=== PATIENT | female | born 1940 | race Hispanic/Latino ===

== ENCOUNTER 2019-10-29 13:01 | Inpatient (IN) | payer MEDICARE, OTHER ==
[~2019-10-29] VITALS: Ht 172.7 cm; Wt 97.6 kg
--- NOTE | 2019-10-29 14:31 | NUR ---
Spoke with pts ELIZABETH Bello .
--- NOTE | 2019-10-29 15:30 | Diagnostic Imaging Report ---
EXAMINATION: CHEST SINGLE (PORTABLE) INDICATION: Weakness COMPARISON: None FINDINGS: LINES/TUBES:EKG leads overlie the chest. LUNGS:The lung volumes are low. Bibasilar linear opacities. PLEURA:No pleural effusion or pneumothorax. MEDIASTINUM:The cardiomediastinal silhouette appears normal in size and shape. Atherosclerotic calcifications of the thoracic aorta. BONES/SOFT TISSUES:No acute osseous injury. ABDOMEN:No free air under the diaphragm. IMPRESSION: Low lung volumes with bibasilar linear opacities, most likely subsegmental atelectasis. Signed by: Nubia Bryson MD on 10/29/2019 3:26 PM
[2019-10-29 15:44] LABS: BASOPHILS % 0.3 % (0.0-1.0); EOSINOPHILS # (AUTO) 0.1 (0.0-0.4); EOSINOPHILS % 0.5 % (0.0-6.0); LYMPHOCYTES % 15.3 % (18.0-39.1); MEAN CORPUSCULAR HEMOGLOBIN 25.5 pg (28-32); MONOCYTES # (AUTO) 0.5 (0.2-0.8); MONOCYTES % 3.6 % (4.4-11.3); NEUTROPHILS # (AUTO) 10.3 (2.1-6.9); NEUTROPHILS % 79.8 % (38.7-80.0); PLATELET COUNT 272 x10e3/uL (140-360); RED BLOOD COUNT 3.53 x10e6/uL (3.6-5.1); RED CELL DISTRIBUTION WIDTH 18.6 % (11.7-14.4)
[2019-10-29 15:47] LABS: BILIRUBIN,URINE NEGATIVE (NEGATIVE); CLARITY,URINE CLOUDY (CLEAR); COLOR,URINE AMBER (YELLOW); KETONES,URINE NEGATIVE (NEGATIVE); LEUKOCYTE ESTERASE ,URINE MODERATE (NEGATIVE); NITRITE,URINE NEGATIVE (NEGATIVE); PROTEIN,URINE DIPSTICK TRACE (NEGATIVE); URINE UROBILINOGEN 0.2 mg/dL (0.2 - 1)
[2019-10-29 15:52] LABS: INR 1.61; PROTHROMBIN TIME 20.3 seconds (11.9-14.5)
[2019-10-29 15:57] LABS: PARTIAL THROMBOPLASTIN TIME 41.5 seconds (23.8-35.5)
[2019-10-29 16:01] LABS: BACTERIA,URINE MODERATE /HPF; EPITHELIAL CELLS,URINE FEW /LPF; RBC,URINE 0-5 /HPF (0-5)
[2019-10-29 16:02] LABS: ALBUMIN 1.7 g/dL (3.5-5.0); ALBUMIN/GLOBULIN RATIO 0.5 (0.8-2.0); ANION GAP 10.4 mmol/L (8-16); CALCIUM 7.3 mg/dL (8.4-10.2); CREATININE, SERUM 1.18 mg/dL (0.57-1.11); MAGNESIUM 1.8 MG/DL (1.3-2.1); POTASSIUM 3.4 mmol/L (3.5-5.1)
[2019-10-29 16:02] LABS: YEAST,URINE MODERATE
[2019-10-29 16:09] LABS: B-TYPE NATRIURETIC PEPTIDE2 202.9 pg/mL (0-100); CREATINE KINASE MB 2.9 ng/mL (0-5.0)
--- NOTE | 2019-10-29 17:17 | Emergency Department Note ---
History of Present Illnes History of Present Illness Chief Complaint: General Medicine Complaints History of Present Illness This is a 79 year old female 79 y/o female presents to ED via EMS for eval of symptoms s/p leaving Rehab AMA in [place] for c-diff and stage 4 sacral decubitus. Pt has been in [place] for 5 months after getting sick on vacation from abdominal abscess. Pt brought back to [place] overnight by granddaughter in RV for treatment and placement. Pt was currently on Flagyl IV and Vancomycin PO. Pt brought med list. Pt is bedbound, A&O x4, no distress noted. Vitals stable. Has had 3 Covid test, all negative. Last tested one week ago. Historian: Patient, Chief Diversity Officer/EMS Arrival Mode: [facility] Treatment ENTRY OPERATOR: See EMS Report Rn Intake Required: No Onset (how long ago): month(s) Onset quality: gradual Timing of current episode: constant Progression: unchanged Chronicity: new Context: Denies recent illness Relieving factors: none Exacerbating factors: none Associated symptoms: Reports denies other symptoms Treatments prior to arrival: none Past Medical/Family History Physician Review I have reviewed the patient's past medical and family history. Any updates have been documented here. Past Medical History Recent Fever: No Clinical Suspicion of Infectio: Yes New/Unexplained Change in Ment: No Other Medical History: ABDOMINAL ABSCESS, SEPSIS, C. DIFFICILE Social History Smoking Cessation: Never Smoker Counseling Performed: No Alcohol Use: None Any Illegal Drug Use: No TB Exposure/Symptoms: No Physically hurt or threatened: No Family History Family history of heart diseas: No Other Any Pre-Existing Lines (PICC,: No Review of Systems Review of Systems Constitutional: Reports no symptoms EENTM: Reports no symptoms Cardiovascular: Reports no symptoms Respiratory: Reports no symptoms Gastrointestinal: Reports no symptoms Genitourinary: Reports no symptoms Musculoskeletal: Reports as per HPI Integumentary: Reports no symptoms Neurological: Reports no symptoms Psychological: Reports no symptoms Endocrine: Reports no symptoms Hematological/Lymphatic: Reports no symptoms Physical Exam Related Data Allergies: Coded Allergies: Penicillins (Verified Allergy, Unknown, 10/29/19) Triage Vital Signs Vital Signs Date Time Temp Pulse Resp B/P (MAP) Pulse Ox O2 Delivery O2 Flow Rate FiO2 10/29/19 13:18 98.0 90 15 121/70 93 Room Air Vital signs reviewed: Yes Physical Exam CONSTITUTIONAL Constitutional: Present morbidly obese, Present ill appearing HENT HENT: Present normocephalic, Present atraumatic, Present oropharynx uriah r/moist, Present nose normal HENT L/R: Present left ext ear normal, Present right ext ear normal EYES Eyes: Reports PERRL, Reports conjunctivae normal NECK Neck: Present ROM normal PULMONARY Pulmonary: Present effort normal, Present breath sounds normal CARDIOVASCULAR Cardiovascular: Present regular rhythm, Present heart sounds normal, Present capillary refill normal, Present normal rate GASTROINTESTINAL Abdominal: Present soft, Present nontender, Present bowel sounds normal GENITOURINARY Genitourinary: Present exam deferred SKIN Skin: Present other (6 CM ROUND STAGE-4 SACRAL DUCUBITUS) MUSCULOSKELETAL Musculoskeletal: Present ROM normal NEUROLOGICAL Neurological: Present alert, Present oriented x 3, Present no gross motor or sensory deficits PSYCHOLOGICAL Psychological: Present mood/affect normal, Present judgement normal Results Laboratory Result Diagram: 10/29/19 1525 10/29/19 1525 Laboratory Laboratory Tests Test 10/29/19 15:34 10/29/19 15:25 10/29/19 15:15 White Blood Count 12.85 x10e3/uL (4.8-10.8) Red Blood Count 3.53 x10e6/uL (3.6-5.1) Hemoglobin 9.0 g/dL (12.0-16.0) Hematocrit 30.0 % (34.2-44.1) Mean Corpuscular Volume 85.0 fL (81-99) Mean Corpuscular Hemoglobin 25.5 pg (28-32) Mean Corpuscular Hemoglobin Concent 30.0 g/dL (31-35) Red Cell Distribution Width 18.6 % (11.7-14.4) Platelet Count 272 x10e3/uL (140-360) Neutrophils (%) (Auto) 79.8 % (38.7-80.0) Lymphocytes (%) (Auto) 15.3 % (18.0-39.1) Monocytes (%) (Auto) 3.6 % (4.4-11.3) Eosinophils (%) (Auto) 0.5 % (0.0-6.0) Basophils (%) (Auto) 0.3 % (0.0-1.0) Neutrophils # (Auto) 10.3 (2.1-6.9) Lymphocytes # (Auto) 2.0 (1.0-3.2) Monocytes # (Auto) 0.5 (0.2-0.8) Eosinophils # (Auto) 0.1 (0.0-0.4) Basophils # (Auto) 0.0 (0.0-0.1) Absolute Immature Granulocyte (auto 0.06 x10e3/uL (0-0.1) Prothrombin Time 20.3 seconds (11.9-14.5) Prothromb Time International Ratio 1.61 Activated Partial Thromboplast Time 41.5 seconds (23.8-35.5) Sodium Level 140 mmol/L (136-145) Potassium Level 3.4 mmol/L (3.5-5.1) Chloride Level 113 mmol/L (98-107) Carbon Dioxide Level 20 mmol/L (22-29) Anion Gap 10.4 mmol/L (8-16) Blood Urea Nitrogen 7 mg/dL (7-26) Creatinine 1.18 mg/dL (0.57-1.11) Estimat Glomerular Filtration Rate 44 ML/MIN (60-) BUN/Creatinine Ratio 6 (6-25) Glucose Level 71 mg/dL (74-118) Lactic Acid Level 1.2 mmol/L (0.5-2.0) Calcium Level 7.3 mg/dL (8.4-10.2) Magnesium Level 1.8 MG/DL (1.3-2.1) Total Bilirubin 0.3 mg/dL (0.2-1.2) Aspartate Amino Transf (AST/SGOT) 14 IU/L (5-34) Alanine Aminotransferase (ALT/SGPT) 14 IU/L (0-55) Alkaline Phosphatase 114 IU/L (40-150) Creatine Kinase 19 IU/L (29-168) Creatine Kinase MB 2.90 ng/mL (0-5.0) Troponin I 0.017 ng/mL (0-0.300) B-Type Natriuretic Peptide 202.9 pg/mL (0-100) Total Protein 5.0 g/dL (6.5-8.1) Albumin 1.7 g/dL (3.5-5.0) Globulin 3.3 g/dL (2.3-3.5) Albumin/Globulin Ratio 0.5 (0.8-2.0) Urine Color [place] (YELLOW) Urine Clarity Cloudy (CLEAR) Urine pH 5.5 (5 - 7) Urine Specific [place] 1.025 (1.010-1.025) Urine Protein Trace (NEGATIVE) Urine Glucose (UA) Negative (NEGATIVE) Urine Ketones Negative (NEGATIVE) Urine Blood Small (NEGATIVE) Urine Nitrite Negative (NEGATIVE) Urine Bilirubin Negative (NEGATIVE) Urine Urobilinogen 0.2 mg/dL (0.2 - 1) Urine Leukocyte Esterase Moderate (NEGATIVE) Urine RBC 0-5 /HPF (0-5) Urine WBC 11-20 /HPF (0-5) Urine Epithelial Cells Few /LPF (NONE) Urine Bacteria Moderate /HPF (NONE) Urine Yeast Moderate (NONE) Lab results reviewed: Yes Imaging Imaging results reviewed: Yes Impressions Procedure: [id number] DX/CHEST SINGLE (PORTABLE) Exam Date: 10/29/19 Exam Time: 1450 REPORT STATUS: Signed EXAMINATION: CHEST SINGLE (PORTABLE) INDICATION: Weakness COMPARISON: None FINDINGS: LINES/TUBES:EKG leads overlie the chest. LUNGS:The lung volumes are low. Bibasilar linear opacities. PLEURA:No pleural effusion or pneumothorax. MEDIASTINUM:The cardiomediastinal silhouette appears normal in size and shape. Atherosclerotic calcifications of the thoracic aorta. BONES/SOFT TISSUES:No acute osseous injury. ABDOMEN:No free air under the diaphragm. IMPRESSION: Low lung volumes with bibasilar linear opacities, most likely subsegmental atelectasis. Signed by: Nubia Bryson MD on 10/29/2019 3:26 PM Assessment & Plan Medical Decision Making MDM CBC, CHEM, CARDIACS, ECG, BLOOD CX'S, UA/CX Assessment & Plan Final Impression: (1) Sacral decubitus ulcer, stage IV (2) UTI (urinary tract infection) Depart Disposition: ADMITTED Last Vital Signs Date Time Temp Pulse Resp B/P (MAP) Pulse Ox O2 Delivery O2 Flow Rate FiO2 10/29/19 15:41 98.2 97 27 132/75 95 10/29/19 13:18 Room Air Medications in the ED Meropenem 100 ml @ 100 mls/hr Q12H IV ; Start 10/29/19 at 17:00; Stop 11/05/19 at 16:59 Azithromycin 250 ml @ 200 mls/hr DAILY IV ; Start 10/29/19 at 17:00; Stop 11/05/19 at 16:59 EVELYNE RIOS MD Oct 29, 2019 17:17
[2019-10-29] MEDS ORDERED: SODIUM CHLORIDE 0.9% 1000ML 1,000 ML IV SCH (17:30)
[2019-10-29] MEDS ORDERED: ONDANSETRON HCL INJ 2MG/ML 2ML 2 MG/ML VIAL IV PRN (17:30)
[2019-10-29] MEDS: AZITHROMYCIN 500MG/NS 250 ML 250 ML IV SCH (19:00)
[2019-10-29] MEDS: MEROPENEM 1GM 100 ML IV SCH (19:08)
[2019-10-29 23:45] VITALS: BP 127/70
[2019-10-30] VITALS (8 sets, daily range): BP systolic 105–127; BP diastolic 49–74
--- NOTE | 2019-10-30 00:45 | NUR ---
Patient received via stretcher from ER. AAO x 3. Patient had no complaints of pain. Respirations even and non-labored. Admission history obtained. Initial physical assessment performed. Stage 4 decubitus ulcer noted on sacrum; bilateral feet dry, scaly and edematous. Wound cleaned and Allevyn foam applied. Purewick also placed on patient. Patient oriented to room, call light and plan of care. Safety measures in place. Patient instructed to call for assistance when needed. Call light within reach.
[2019-10-30] MEDS ORDERED: ATORVASTATIN CA20 MG PO (02:57)
[2019-10-30] MEDS ORDERED: HUMALOG100 UNIT/1 (02:57)
[2019-10-30] MEDS ORDERED: AMITIZA24 MCG PO (02:57)
[2019-10-30] MEDS ORDERED: LIDOPATCH1 EACH TOP (02:57)
[2019-10-30] MEDS ORDERED: DOCUSATE SODIU100 MG PO (02:57)
[2019-10-30] MEDS ORDERED: LANTUS 3ML100 UNITS/ SQ (02:57)
[2019-10-30] MEDS ORDERED: ACETAMINOPHEN325 M1 PO (02:57)
[2019-10-30] MEDS ORDERED: SIMETHICONE80 MG PO (02:57)
[2019-10-30] MEDS ORDERED: PROTONIX20 MG PO (02:57)
[2019-10-30] MEDS: MEROPENEM 1GM 100 ML IV SCH ×2 (05:16→17:35)
[2019-10-30 05:47] LABS: BASOPHILS % 0.3 % (0.0-1.0); EOSINOPHILS # (AUTO) 0.3 (0.0-0.4); EOSINOPHILS % 2.7 % (0.0-6.0); HEMATOCRIT 25.9 % (34.2-44.1); HEMOGLOBIN 7.9 g/dL (12.0-16.0); LYMPHOCYTES # (AUTO) 1.6 (1.0-3.2); LYMPHOCYTES % 16.2 % (18.0-39.1); MEAN CORPUSCULAR HEMOGLOBIN 25.8 pg (28-32); MEAN CORPUSCULAR HGB CONC 30.5 g/dL (31-35); MEAN CORPUSCULAR VOLUME 84.6 fL (81-99); MONOCYTES # (AUTO) 0.4 (0.2-0.8); MONOCYTES % 4.3 % (4.4-11.3); NEUTROPHILS # (AUTO) 7.6 (2.1-6.9); NEUTROPHILS % 75.9 % (38.7-80.0); PLATELET COUNT 243 x10e3/uL (140-360); RED BLOOD COUNT 3.06 x10e6/uL (3.6-5.1); RED CELL DISTRIBUTION WIDTH 18.7 % (11.7-14.4)
[2019-10-30 05:59] LABS: ALBUMIN 1.5 g/dL (3.5-5.0); ALBUMIN/GLOBULIN RATIO 0.6 (0.8-2.0); ANION GAP 9.4 mmol/L (8-16); CREATININE, SERUM 1.18 mg/dL (0.57-1.11); POTASSIUM 3.4 mmol/L (3.5-5.1)
--- NOTE | 2019-10-30 06:02 | NUR ---
H&P cc: sacral uilcer HPI: 79yoF, recently brought from [place] by daughter to [place], after recent hospitalization in [place]. Per granddaughter, pt was taken to [place], then became ill. Treated for abdominal pain, found to have Abdominal abscess, drain was placed, she developed sepsis, she also had GIB due to PUD, with cardiac arrest, with 2 episodes of cardiac arrest. Pt also had pleural effusions B/L, s/p chest tube. Pt did receive temporary dialysis; Eventually transferred to [facility], where she developed sacral ulcer. Pt was hospitalized at [facility], then transferred to [facility] in [facility]. Granddaughter signed pt out AMA due to poor mgmt at that facility, per daughter. , found to have stage 4 sacral decubitus ulcer; Per granddaughter, pt developed C.diff and sacral ulcer while at the [facility] in [place]. PMH: pleural effusion B/L s/p chest tube, abdominal abscess, stage 4 sacral ulcer, C.diff diarrhea, physical deconditioning, PUD with GIB, v/s; revd PE tired appearing anicteric ns1s2 mod bs soft abdomen; nontender stage 4 sacral ulcer 2 + leg edema skin dry flat affect awake; confused labs/meds revd A/P: 79yoF Stage 4 sacral ulcer- LWC; Peripheral edema- check echo; Hx pleural effusions- check echo PHysical deconditioning- PT consult Recent cardiac arrest?- get records; check echo; cardio eval Moderate anemia- check panel CHIOMA vs CKD- was on temp dialysis; check renal U/S UTI- iv abx; check culture Hypokalemia- f/u Prop: scd Dispo: check echo and renal U/S. Wound care consult. Nephr consult; Obtain records from: 1. [facility] 2.[facility] in [facility]. D/W granddaughter Tj Navarrete MD, PHD.
[2019-10-30 06:33] LABS: CREATINE KINASE MB 2.3 ng/mL (0-5.0)
--- NOTE | 2019-10-30 08:57 | NUR ---
WOUND CARE CONSULT FOR 79 YO FEMALE HX OF STG 4 SACRAL DECUBITUS CHARU 13 ON MODERATE PUP STATUS AND INTERVENTIONS AND ALTERNATING PRESSURE MATTRESS LABS: WBC-PEND HGB_PEND GLUCOSE-88 WOUND CULTURE SACRUM POSITIVE GRAM + COCCI SKIN ASSESSMENT COMPLETE PATIENT PRESENTS WITH STAGE 4 SACRAL DECUBITUS 3CM X 3CM X 2.5CM UNDERMINING FROM 11-1 OCLOCK 2CM LEFT BUTTOCKS PARTIAL THICKNESS WOUND 0.5CM X0.5CM X 0.1CM LEFT ABDOMINAL FOLD PARTIAL THICKNESS WOUND 0.2CM X 0.5CM X0.1CM RECOMMENDATIONS: NURSING TO CONTINUE TO MAINTAIN MODERATE PUP STATUS AND INTERVENTIONS AND ALTERNATING PRESSURE MATTRESS NURSING TO CONTINUE TO ASSIST PATIENT OUT OF BED FOR MEALS AND MUCH TOLERATED NURSING TO CONTINUE TO ASSIST PATIENT NEEDED WITH MEALS AND NUTRITIONAL SUPPLEMENTS TO ENSURE PROPER REQUIREMENTS FOR HEALING NURSING TO CONTINUE TO OFFLOAD FEET AND HEELS NEEDED WITH PILLOW SUSPENSION WHEN IN BED NURSING TO CLEAN STAGE 4 SACRAL DECUBITUS WITH NORMAL SALINE DAILY AND PACK WITH BETADINE MOIST LESLY AND COVER WITH ALLEVYN FOAM DRESSING NURSING TO CLEAN LEFT BUTTOCKS PARTIAL THICKNESS WOUND WITH NORMAL SALINE DAILY AND APPLY VENELEX OINTMENT AND ALLEVYN FOAM DRESSING NURSING TO CLEAN LEFT ABDOMINAL FOLD PARTIAL THICKNESS WOUND AND IRRITATION WITH NORMAL SALINE DAILY AND APPLY REMEDY BARRIER PASTE TO CONTROL MOISTURE AND PROTECT SKIN FOLD Addendum: 10/30/19 at 0910 by Dylan Chang RN Amended: Links added.
[2019-10-30] MEDS: AZITHROMYCIN 500MG/NS 250 ML 250 ML IV SCH (09:11)
--- NOTE | 2019-10-30 09:25 | NUR ---
Received call from pt's granddaughter Holly Bello [phone]. States she is pt's medical POA. States that pt was walking and talking back in June. The family took a trip to [employer] and during trip pt developed severe abdominal pain. Was taken to ER in [place]. Found that pt had a mass in her abdomen. Had to have surgery. Developed complications afterwards - sepsis, pleural effusion, abscess. Had drains and chest tubes placed. Coded at one point. Then later had GI bleed, stomach ulcers. Required multiple transfusions. Was taken for emergency surgery again. Pt was eventually stabilized and transferred to [facility] in [place]. States pt developed bed sores and got Cdiff while there. Pt decided to leave AMA from [facility] because she felt like she was only deteriorating there. Family brought her back to [place] for treatment. Per Holly, goal is to get pt back to being about to walk and care for self. Would like for pt to go to inpatient rehab upon discharge from hospital. Message left for Dr. Navarrete and CM requested PT eval order. Dr. Navarrete said he will "take a look."
[2019-10-30 12:03] LABS: CHOL/HDL RATIO 7.6 (3.0-3.6)
[2019-10-30] MEDS: SIMETHICONE 80 MG CHEW PO SCH ×2 (13:05→23:30)
[2019-10-30 13:29] LABS: CREATINE KINASE MB 2.5 ng/mL (0-5.0)
--- NOTE | 2019-10-30 14:42 | Diagnostic Imaging Report ---
CT of the abdomen and pelvis. Comparison: Clinical History: Suspected colitis Technique: Helical CT scan of the abdomen and pelvis was performed. Intravenous contrast administration was not utilized. Oral contrast administration was not utilized. Coronal and sagittal reconstructions were generated from the raw data. Multiple images were submitted for interpretation. This exam was performed according to our departmental dose-optimization program which includes automated exposure control, adjustment of the mA and/or kV according to patient size Discussion: Inferior chest: Small bilateral pleural effusions left more than right. Dependent atelectasis. Coronary artery calcification. Anemia. Liver: Diffuse fatty infiltration. Spleen: Unremarkable Pancreas: Age related atrophy Biliary tree and gallbladder: Vicarious excretion of contrast in the gallbladder otherwise unremarkable Adrenal glands: Unremarkable Kidneys and ureters: Large left exophytic renal cyst. Atrophic right kidney. Vasculature: Atherosclerotic calcification Lymph nodes: No lymphadenopathy Bowel: Air distended loops of colon within limits of normal. Liquid fecal matter in the rectum. Inspissated barium in the rectum. Pelvis: Urinary bladder is unremarkable. Internal genitalia unremarkable. Pelvic wall unremarkable. Peritoneum: Unremarkable Perineal compartments: unremarkable. Fluid: No free fluid. Bones: Degenerative changes Body wall: Dependent edema versus hematoma in the right upper chest wall. Impression: No definite signs of colitis on this exam. Signed by: Dionicio Ruggiero MD on 10/30/2019 2:38 PM
--- NOTE | 2019-10-30 17:20 | Diagnostic Imaging Report ---
Renal ultrasound Comparison: None Clinical History: ATI versus EK D Technique: Sonographic evaluation of the kidneys was performed. Multiple images were submitted for interpretation, using a low-frequency curved transducer. Right kidney: The right kidney is not visualized. The patient has a large body habitus that makes ultrasound examination technically difficult. Also based on the CT today, the the right kidney is small in size. Left kidney: The kidney measures 10 x 4.5 x 3.7 cm with a cortical thickness of 0.9 cm. The cortical echogenicity is within normal limits. There is no evidence of a focal mass. There is no evidence of hydronephrosis. There is no evidence of a shadowing stone. There is sonographic evidence of a 2 x 2.1 x 1.9 cm simple exophytic cyst. There is no evidence of a perinephric fluid collection. Flow is visualized to the left kidney. Survey images of the bladder demonstrate no abnormality. Impression: Right kidney is not seen on this exam. Left kidney is unremarkable. Signed by: Dionicio Ruggiero MD on 10/30/2019 5:16 PM
[2019-10-30] MEDS ORDERED: POTASSIUM CHLORIDE 20 MEQ TAB CR PO SCH (18:00)
--- NOTE | 2019-10-30 19:00 | NUR ---
RECEIVED PATIENT IN BEDSIDE SHIFT REPORT. PATIENT RESTING IN BED AT THIS TIME. NO PAIN REPORTED. NO S&S OF DISTRESS NOTED. BED ALARM ACTIVE. BED LOCKED IN LOWEST POSITION, SIDE RAILS UPX2, CALL LIGHT IN REACH.
[2019-10-30] MEDS: ATORVASTATIN 20 MG TAB PO SCH (20:47)
--- NOTE | 2019-10-30 22:02 | Consultation ---
DATE OF CONSULTATION: 10/30/2019 REASON FOR CONSULTATION: Acute kidney injury. HISTORY OF PRESENT ILLNESS: This is an 79-year-old female recently brought from [place] by her daughter to [place] after recent hospitalization there. She was taken sick with an abdominal abscess, which was drained, she subsequently developed sepsis leading to cardiac arrest x2. She had bilateral pleural effusions requiring chest tubes. She also had temporary dialysis. Eventually transferred to LTAC where she developed sacral ulcers. She stayed in [facility] and then later in a [facility] in [place], [place]. According to the daughter, the patient developed C diff and sacral ulcers while in the LTAC in [place]. The patient herself speaks some Estonian, but is unable to offer any meaningful history. PAST MEDICAL HISTORY: As above. CURRENT MEDICATIONS: Noted in MAR. REVIEW OF SYSTEMS: Unable to obtain from the patient. Please see HPI above. PHYSICAL EXAMINATION: GENERAL: The patient is lying supine in bed, in no acute distress. VITAL SIGNS: Blood pressure 122/64, pulse 94 per minute, she is afebrile. Oxygen saturation 94% on room air. SKIN: Normal turgor. HEENT: Normocephalic, atraumatic head. External ocular movements intact. NECK: Supple without jugular venous distention. RESPIRATORY: Symmetrical breathing. I do not hear any wheezing. CARDIOVASCULAR: S1, S2. ABDOMEN: Soft, nondistended. EXTREMITIES: Without pitting edema. NEUROLOGIC: She is alert and appears oriented x3. No obvious focal deficits. LABORATORY DATA: Hemoglobin is 7.9, normal white count and platelets. Sodium 140, potassium 3.4, chloride 114, bicarb 20, BUN 7, creatinine 1.18, EGFR 44, glucose 88, hemoglobin A1c 5.6%. Serum albumin 1.5. IMPRESSION: 1. Mild renal insufficiency, duration not known. Possible underlying CKD 3. The patient has had a complicated and prolonged recent hospitalization in [place]. She has received IV normal saline from ER on following presentation here. Being treated with azithromycin and meropenem. 2. Mild hypokalemia. 3. Negative for diabetes mellitus. RECOMMENDATION: 1. Monitor renal function daily. 2. Replace potassium by mouth. 3. Avoid all nephrotoxins including NSAIDs and IV iodine contrast as possible. 4. Check urinalysis and quantify proteinuria at present. We will follow the patient and recommend as needed. Thank you for this consultation. MD MAHESH Menendez/DARRELL /[id number]
[2019-10-31] VITALS (7 sets, daily range): BP systolic 91–128; BP diastolic 45–61
--- NOTE | 2019-10-31 01:30 | NUR ---
ATTEMPTED TO TURN PATIENT, BUT PATIENT REFUSES AT THIS TIME. STATES, "I CAN ONLY SLEEP ON MY RIGHT SIDE, I CAN'T SLEEP ON MY BACK OR LEFT SIDE." EDUCATED ON IMPORTANCE OF FREQUENT TURNS, BUT PATIENT CONTINUES TO REFUSE. WILL CONTINUE TO ATTEMPT. ALTERNATING PRESSURE MATTRESS IS ON BED AND ACTIVE. WILL CONTINUE TO MONITOR.
[2019-10-31 06:22] LABS: IRON 31 ug/dL (50-170); TRANSFERRIN < 70 mg/dL (180-382)
[2019-10-31 06:39] LABS: FERRITIN > 2000.00 ng/mL (4.63-204.00)
[2019-10-31] MEDS: MEROPENEM 1GM 100 ML IV SCH ×2 (07:23→18:17)
[2019-10-31] MEDS: PANTOPRAZOLE SOD 40 MG TABEC PO SCH (09:04)
[2019-10-31] MEDS: AZITHROMYCIN 500MG/NS 250 ML 250 ML IV SCH (09:04)
[2019-10-31] MEDS ORDERED: SODIUM HYPOCHLORITE 0.25% 480 ML SOLN IR ONE (11:45)
[2019-10-31] MEDS: BALSAM PERU/CASTOR OIL 60 GM OINT...G. TP SCH (11:50)
--- NOTE | 2019-10-31 11:53 | NUR ---
Dr Lazar here did wound dressing, new orders recvd, Patient have frequent green colored diarrhoea, notified Dr Navarrete, new order recvd, changed diaper,,Pure wick On, up in bed eating Lunch, call light in reach, bed alarm On
--- NOTE | 2019-10-31 12:43 | NUR ---
ADDENDUM to H&P- see below PSx, Allergies, FH/SH H&P cc: sacral uilcer HPI: 79yoF, recently brought from [place] by daughter to [place], after recent hospitalization in [place]. Per granddaughter, pt was taken to [facility], then became ill. Treated for abdominal pain, found to have Abdominal abscess, drain was placed, she developed sepsis, she also had GIB due to PUD, with cardiac arrest, with 2 episodes of cardiac arrest. Pt also had pleural effusions B/L, s/p chest tube. Pt did receive temporary dialysis; Eventually transferred to [facility], where she developed sacral ulcer. Pt was hospitalized at [facility], then transferred to [facility] in [facility]. Granddaughter signed pt out AMA due to poor mgmt at that facility, per daughter. , found to have stage 4 sacral decubitus ulcer; Per granddaughter, pt developed C.diff and sacral ulcer while at the [facility] in [place]. PMH: pleural effusion B/L s/p chest tube, abdominal abscess, stage 4 sacral ulcer, C.diff diarrhea, physical deconditioning, PUD with GIB, PSHx: debridement of sacral ulcer; chest tube Allergies; see emr FH/SH: granddaughter involved in care; meds; see MAR ROS: unobtainable- confused v/s; revd PE tired appearing anicteric ns1s2 mod bs soft abdomen; nontender stage 4 sacral ulcer 2 + leg edema skin dry flat affect awake; confused labs/meds revd A/P: 79yoF Stage 4 sacral ulcer- LWC; Peripheral edema- check echo; Hx pleural effusions- check echo PHysical deconditioning- PT consult Recent cardiac arrest?- get records; check echo; cardio eval Moderate anemia- check panel CHIOMA vs CKD- was on temp dialysis; check renal U/S UTI- iv abx; check culture Hypokalemia- f/u Prop: scd Dispo: check echo and renal U/S. Wound care consult. Nephr consult; Obtain records from: 1. [facility] 2.[facility] in [facility]. D/W granddaughter Tj Navarrete MD, PHD.
--- NOTE | 2019-10-31 12:45 | NUR ---
IM - progress note O/N see below ROS: unreliable v/s; revd PE tired appearing anicteric ns1s2 mod bs soft abdomen; nontender stage 4 sacral ulcer 2 + leg edema skin dry flat affect awake; confused labs/meds revd A/P: 79yoF Stage 4 sacral ulcer- LWC; Peripheral edema- check echo; Hx pleural effusions- check echo PHysical deconditioning- PT consult Recent cardiac arrest?- get records; check echo; cardio eval Moderate anemia- check panel CHIOMA vs CKD- was on temp dialysis; check renal U/S UTI- iv abx; check culture Hypokalemia- f/u Prop: scd Dispo: check echo and renal U/S. Wound care consult. Nephr consult; Obtain records from: 1. [facility] 2.[facility] in [facility]. D/W granddaughter 7-10 start flagyl for diarrhea; cont IV abx; start PT; check labs; d/c azithromycin; ID consult; Tj Navarrete MD, PHD.
[2019-10-31] MEDS ORDERED: ONDANSETRON HCL INJ 2MG/ML 2ML 2 MG/ML VIAL IV PRN (13:00)
[2019-10-31] MEDS ORDERED: ACETAMINOPHEN 325 MG TAB PO PRN (13:00)
[2019-10-31 13:44] LABS: BASOPHILS % 0.3 % (0.0-1.0); EOSINOPHILS % 0.2 % (0.0-6.0); HEMOGLOBIN 8.9 g/dL (12.0-16.0); LYMPHOCYTES # (AUTO) 0.8 (1.0-3.2); MEAN CORPUSCULAR HEMOGLOBIN 25.6 pg (28-32); MEAN CORPUSCULAR HGB CONC 29.7 g/dL (31-35); MEAN CORPUSCULAR VOLUME 86.2 fL (81-99); MONOCYTES # (AUTO) 0.3 (0.2-0.8); MONOCYTES % 2.3 % (4.4-11.3); NEUTROPHILS # (AUTO) 9.6 (2.1-6.9); NEUTROPHILS % 89.7 % (38.7-80.0); PLATELET COUNT 255 x10e3/uL (140-360); RED BLOOD COUNT 3.48 x10e6/uL (3.6-5.1)
[2019-10-31 13:59] LABS: ANION GAP 12.3 mmol/L (8-16); CALCIUM 7.2 mg/dL (8.4-10.2); CREATININE, SERUM 1.18 mg/dL (0.57-1.11); POTASSIUM 3.3 mmol/L (3.5-5.1)
[2019-10-31 14:24] LABS: MAGNESIUM 1.6 MG/DL (1.3-2.1); PHOSPHORUS 3.4 MG/DL (2.3-4.7)
--- NOTE | 2019-10-31 14:25 | Consultation ---
DATE OF CONSULTATION: Wound Consultation Thank you, Dr. Navarrete, for asking me to see this patient. HISTORY OF PRESENT ILLNESS: An 79-year-old female patient, deconditioned, bedbound, has stage IV sacral pressure ulcer. Wound consult was called. The patient is awake. She has some cognitive impairment. PAST MEDICAL HISTORY: Diabetes mellitus, chronic constipation, hyperlipidemia, history of GI bleeding, recent admission to [facility] with left empyema, had a thoracoscopy, had a decortication on September 08, 2019, after chest tube drainage failed for empyema, later developed a pulseless electrical activity, coded on July 23, requiring transient intubation and initiation of dialysis. Also had duodenal ulcer with bleeding requiring clipping and developed DVT of left upper extremity. This happened in [place]. She also has chronic hearing loss. 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 The patient has non-healing sacral ulcer, wound consult was called. MEDICATIONS: Atorvastatin, insulin, polyethylene glycol, pantoprazole, lubiprostone 24 mcg b.i.d. PERSONAL HISTORY: No history of smoking, alcohol, or drugs. SURGICAL HISTORY: Colonoscopy with decompression in August 2019, status post hemodialysis PermCath, removed in August 2019, and VATS secondary to pleural effusion, empyema in June 2019. ALLERGIES: TO PENICILLIN. PHYSICAL EXAMINATION: VITAL SIGNS: Blood pressure 119/73, pulse of 92, temperature 98. HEENT: Normal. NECK: . ABDOMEN: Soft, protuberant, obese. EXTREMITIES: Lower extremities, trace edema. SKIN: Skin exam, sacral area, the patient has stage IV pressure ulcer measures 3.5 x 3.5 x 2.5 cm with undermining of 2.5 cm 12 o'clock position. Bone exposed. 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 ASSESSMENT: Sacral stage IV pressure ulcers wound. PLAN: We will pack the wound with Dakin's moistened 4 x 4, ABD, and tape. Change dressing daily. Thank you for consultation. Melisa Gilbert MD TG/MODL /[id number]
--- NOTE | 2019-10-31 15:15 | Progress Note ---
DATE: 10/31/2019 Nephrology Followup Note SUBJECTIVE: The patient is sleeping comfortably. Per RN, she is eating and taking fluids by mouth. No nausea, vomiting, or diarrhea. No shortness of breath. OBJECTIVE: VITAL SIGNS: Show blood pressure 91/45, pulse 69 per minute, and respirations 18 per minute. She is afebrile. O2 saturation 98% on room air. RESPIRATORY: Her breathing is symmetrical. EXTREMITIES: She has no peripheral edema. CARDIOVASCULAR: S1, S2. The rest of the exam is unremarkable. LABORATORY DATA: Pending from today. IMPRESSION: An elderly female with complex recent medical history and hospitalization in [place], now admitted here for ongoing care of sacral wound. Mild renal insufficiency on admission, which is either a residual from her acute kidney injury requiring dialysis in [place], or CKD 3. She has received IV fluids. Following admission, and now is taking by mouth. RECOMMENDATIONS: Daily renal function check. Follow up on today's labs. Replace potassium as needed by mouth. Avoid all known nephrotoxins including NSAIDs and IV iodine contrast as possible. A urinalysis was noted. Check urine culture if symptomatic. Johny Omalley MD [facility]/MODL /[id number]
[2019-10-31] MEDS: METRONIDAZOLE 500MG/NS 100ML 100 ML IV SCH ×2 (15:38→22:39)
--- NOTE | 2019-10-31 18:15 | NUR ---
Nutrition Intervention Note RD Recommendation(s) for Physician: -Recommend Ensure Enlive BID for adequacy due to pressure ulcer -Recommend Jamey BID as well as zinc and vitamin C to promote wound healing -Recommend regular diet Plan of Care: RD following, monitoring for tolerance and adequacy Nutrition reason for involvement: pressure ulcer RD Assessment (10/31/19) Pt is an 79 year old female admitted with stage 4 sacral ulcer and UTI. Pt is primarily Latvian speaking per chart. It is recorded that pt consumed 75-100% of meals yesterday and 50% of breakfast this morning. There are no previous weights in chart. Recommend Ensure Enlive for added nutrition and Jamey BID as well as zinc and vitamin C to promote wound healing. Principal Problems/Diagnoses: stage 4 sacral ulcer and UTI PMH: pleural effusion B/L s/p chest tube, abdominal abscess, stage 4 sacral ulcer, C.diff diarrhea, physical deconditioning, PUD with GIB, GI: soft, non-tender round abdomen, last recorded BM 10/29 Skin: stage 4 sacral ulcer Labs: (10/30) Na 144, Cr 1.18, BUN 7, Ca 7.2, Iron 31 Meds: antibiotic, protonix, meropenem, Lipitor, zofran Ht: 68 inches Wt: 170 lbs BMI: 25.8 kg/m2 IBW: 140 lbs Malnutrition Evaluation (10/31/19) The patient does not meet criteria for a specified degree of malnutrition at this time. Will re-evaluate at follow-up as appropriate. Nutrition Prescription (Diet Order): 1800 ADA Estimated Nutritional Needs: [id number] calories/day (18-20 kcal/kg CBW) 100-155 g protein/day (1.3-2 g pro/kg CBW) Diet Adequacy: Meeting calorie needs, Meeting protein needs Tolerance: Tolerating PO Diet Education Needs Assessment: Diet education is not indicated Nutrition Care Level: low Nutrition Diagnosis: Increased nutrient needs related to increased demand for protein and kcal as evidenced by stage 4 sacral pressure ulcer. Goal: Patient will meet 75-100% of estimated needs by follow up Progress: N/A Interventions: -General healthful diet, Commercial beverage, Recommended Modifications, Multivitamin/mineral supplement therapy Monitoring/Evaluation: -Total energy intake, Total protein intake, Liquid supplement, Weight change Signed: Rea Suarez RD, LD
[2019-10-31] MEDS: SIMETHICONE 80 MG CHEW PO SCH ×2 (18:17→23:30)
--- NOTE | 2019-10-31 19:21 | Consultation ---
DATE OF CONSULTATION: Cardiology Consultation HISTORY OF PRESENT ILLNESS: This is an 79-year-old woman, who cannot provide me the exact details of her medical history or presenting illness. Most of the medical record is taken from the chart. Evidently, she was visiting family or friends in [place], developed abdominal pain and was taken to the hospital, and was found to have an abdominal abscess, which was surgically drained. She evidently had a cardiac arrest and pleural effusions, requiring chest tube placement and was temporally placed on dialysis. She went to a long-term acute care center and developed sacral ulcers and C. difficile colitis. The patient's family members picked her up from [place] and brought her here. The patient is fairly lethargic and sleeping. Cannot provide review of systems. REVIEW OF SYSTEMS: Unable to be obtained. PAST MEDICAL HISTORY: As stated above. PAST SURGICAL HISTORY: As stated above. PAST FAMILY HISTORY: Noncontributory to current illness. SOCIAL HISTORY: No illicit drug, alcohol, or tobacco use. ALLERGIES: PENICILLIN. MEDICATIONS: See medication reconciliation form. PHYSICAL EXAMINATION: VITAL SIGNS: Temperature is 98.9, heart rate is 98, respirations are 20, blood pressure is 114/56, and oxygen saturation is 98% on room air. GENERAL: She is a chronically ill-appearing elderly woman, lying comfortably in bed, no apparent distress. CARDIOVASCULAR: Regular rate and rhythm. LUNGS: Clear to auscultation. ABDOMEN: Soft, nontender, and nondistended. EXTREMITIES: Trace edema. NEUROLOGIC: The patient is lethargic. Moving extremities. CARDIOVASCULAR MEDICATIONS: Reviewed. LABORATORY DATA: Reviewed. Troponin is negative. BNP is minimally elevated. Chest x-ray shows low lung volumes. Echocardiogram showed preserved left ventricular systolic function with grade 1 diastolic dysfunction. IMPRESSION: 1. History of cardiac arrest. 2. History of pleural effusions. 3. Sacral decubitus ulcers. 4. Anemia. 5. Diastolic dysfunction. 6. Chronic kidney disease. RECOMMENDATIONS: The patient has no ongoing active cardiac conditions. She has mild grade 1 diastolic dysfunction. She has a preserved left ventricular systolic function. There is no evidence of acute myocardial infarction. No further workup is required at this point in time. Regulo Betancourt DO BM/MODL /[id number]
--- NOTE | 2019-10-31 20:00 | NUR ---
BEDSIDE SHIFT REPORT RECEIVED FROM DAY RN. PT IS ALERT AND ORIENTED X3. CDIF NEGATIVE BUT PT HAVING LARGE AMOUNT OF DIARRHEA. PURWICK ON- TO SUCTION. SACRAL WOUND DRESSING DRY AND INTACT. RT FA 22G SL INTACT.CALL LIGHT WITHIN REACH. bED LOCKED AND IN LOW POSIION.
[2019-10-31] MEDS ORDERED: ZOLPIDEM TARTRATE 5 MG TAB PO PRN (21:00)
[2019-10-31] MEDS: ATORVASTATIN 20 MG TAB PO SCH (21:45)
[2019-11-01] VITALS (8 sets, daily range): BP systolic 97–118; BP diastolic 47–62
[2019-11-01] MEDS: MEROPENEM 1GM 100 ML IV SCH ×2 (05:00→16:30)
[2019-11-01] MEDS ORDERED: SODIUM CHLORIDE 0.9% 250ML 250 ML ONE (06:24)
--- NOTE | 2019-11-01 07:00 | NUR ---
RECEIVED PATIENT AWAKE RESTING IN BED NO S/S OF DISTRESS. BED LOW, WHEELS LOCKED, SIDE RAILS X2. CALL LIGHT IN REACH WILL CONTINUE TO MONITOR PATIENT.
[2019-11-01] MEDS: METRONIDAZOLE 500MG/NS 100ML 100 ML IV SCH (07:48)
[2019-11-01] MEDS: PANTOPRAZOLE SOD 40 MG TABEC PO SCH (09:08)
[2019-11-01] MEDS: BALSAM PERU/CASTOR OIL 60 GM OINT...G. TP SCH (09:09)
--- NOTE | 2019-11-01 11:29 | Progress Note ---
DATE: Cardiology Progress Note SUBJECTIVE: The patient reports pain from decubitus ulcer that she has. She has pain that is radiating from her buttocks to her back. Denies any chest pain, shortness of breath, or palpitation. OBJECTIVE: VITAL SIGNS: Temperature 98.3, pulse 82, respiratory rate 18, blood pressure 97/47, oxygen saturation 92% on room air. GENERAL: Alert and oriented x3. Resting comfortably in the bed. Does not appear to be in any acute distress. NECK: Supple. No JVD noted. CARDIOVASCULAR: Regular rate and rhythm. ABDOMEN: Soft, nontender. EXTREMITIES: Lower extremities 4+ pitting edema. CARDIOVASCULAR MEDICATIONS: Atorvastatin 20 mg p.o. at bedtime. LABORATORY DATA: No new labs today. IMPRESSION: 1. History of cardiac arrest. 2. History of effusion. 3. Sacral decubitus ulcer. 4. Anemia. 5. Diastolic dysfunction. 6. Chronic kidney disease. RECOMMENDATIONS: Continue the above listed cardiac medications. Initiate diuretic and monitor electrolytes closely. Maintain on telemetry at all times. The patient has preserved left ventricular systolic function. No evidence of acute myocardial infarction noted. We will continue to follow this patient closely. Dictated by Carli Bautista NP MD JIMMY Araiza/DARRELL /[id number]
[2019-11-01] MEDS: SIMETHICONE 80 MG CHEW PO SCH ×2 (12:13→23:19)
[2019-11-01] MEDS: FUROSEMIDE 40 MG TAB PO SCH (12:13)
[2019-11-01] MEDS: POTASSIUM CHLORIDE 20 MEQ TAB CR PO SCH (12:13)
--- NOTE | 2019-11-01 18:21 | Consultation ---
DATE OF CONSULTATION: 11/01/2019 I would like to thank Dr. Landon Sauer for this interesting consult. HISTORY OF PRESENT ILLNESS: This is a very pleasant 79-year-old female with past medical history of chronic kidney disease stage 3, hypertension, diabetes mellitus, chronic constipation, hyperlipidemia, history of GI bleeding, she was most recently admitted at [facility] with lymph empyema status thoracoscopy, decortication on September 08, 2019, after a chest tube drainage, failed for empyema and later on, the patient developed pulseless electrical activity and she had code on July 23, requiring transient intubation and initiation of dialysis. The patient also has a history of duodenal ulcer with bleeding, requiring clipping and development of DVT and upper extremity in [place]. 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 The patient has a chronic nonhealing sacral ulcer. The patient is deconditioned, bedbound. She lived in a facility. The patient was having increased pain and nonhealing ulcer, but with these complaints, the patient was transferred to [facility] and our service was asked to evaluate and give recommendations regarding concerns of infection at the sacral decubitus ulcer. The patient is a poor historian and most of the history is obtained from the medical records. PAST MEDICAL HISTORY: As mentioned above. PAST SURGICAL HISTORY: The patient had a colonoscopy with decompression on August of 2019, status post hemodialysis, PermCath and it was removed in August of 2019, VATS secondary to pleural effusion and empyema in June of 2019. MEDICATIONS: Reviewed. ALLERGIES: NO KNOWN PERSONAL ALLERGIES EXCEPT FOR PENICILLINS. FAMILY HISTORY: Noncontributory. SOCIAL HISTORY: The patient lives in an assisted living facility. PHYSICAL EXAMINATION: VITAL SIGNS: Temperature 98.3, respiratory rate is 18, heart rate 82, blood pressure 97/47. CHEST: Decreased breath sounds bilaterally. HEART: S1 and S2 are normal. ABDOMEN: Soft, nontender. The patient is bedbound. SKIN: Stage IV sacral ulcer, measuring 3.5 x 3.5 x 2.5 cm with undermining of 2.5 cm at 12 o'clock position. 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 ASSESSMENT: This is an 79-year-old female with past medical history of diabetes mellitus, hypertension, hyperlipidemia, chronic GI bleeding, chronic constipation, history of DVT in the left upper extremity, chronic hearing loss. The patient has been admitted with: 1. Sacral decubitus ulcer. 2. Soft tissue infection associated with bone exposed, most likely concerns for osteomyelitis. 3. Chronic pain. 4. Wound culture shows gram negative rods. PLAN: 1. We will use IV meropenem 500 mg every 6 hours. 2. Discontinue Flagyl, I did not find any signs of colitis. 3. We will follow the wound cultures for further recommendations. Thank you for letting me participate in the care of you patient. We will follow this patient very closely with you. MD ALEXANDER Casarez/REJIL /[id number]
--- NOTE | 2019-11-01 19:04 | NUR ---
IM - progress note O/N see below ROS: unreliable v/s; revd PE tired appearing anicteric ns1s2 mod bs soft abdomen; nontender stage 4 sacral ulcer 2 + leg edema skin dry flat affect awake; confused labs/meds revd A/P: 79yoF Stage 4 sacral ulcer- LWC; Peripheral edema- check echo; Hx pleural effusions- check echo PHysical deconditioning- PT consult Recent cardiac arrest?- get records; check echo; cardio eval Moderate anemia- check panel CHIOMA vs CKD- was on temp dialysis; check renal U/S UTI- iv abx; check culture Hypokalemia- f/u Prop: scd Dispo: check echo and renal U/S. Wound care consult. Nephr consult; Obtain records from: 1. [facility] 2.[facility] [place] [facility] in [facility]. D/W granddaughter 10-30 start flagyl for diarrhea; cont IV abx; start PT; check labs; d/c azithromycin; ID consult; 10-31 renal fn unchanged; f/u cultures; Tj Navarrete MD, PHD.
[2019-11-01] MEDS: ATORVASTATIN 20 MG TAB PO SCH (21:28)
[2019-11-02] VITALS (7 sets, daily range): BP systolic 93–116; BP diastolic 46–62
[2019-11-02] MEDS: MEROPENEM 1GM 100 ML IV SCH ×2 (06:05→17:07)
--- NOTE | 2019-11-02 06:51 | NUR ---
report given to day nurse. patient is resting in bed. bed is in lowest position and call light is within reach.
[2019-11-02] MEDS: FUROSEMIDE 40 MG TAB PO SCH (08:47)
[2019-11-02] MEDS: PANTOPRAZOLE SOD 40 MG TABEC PO SCH (08:47)
[2019-11-02] MEDS: POTASSIUM CHLORIDE 20 MEQ TAB CR PO SCH (08:48)
--- NOTE | 2019-11-02 11:03 | Progress Note ---
DATE: Cardiology Progress Note SUBJECTIVE: The patient complains of right leg pain and also buttock pain. Denies any chest pain or shortness of breath. OBJECTIVE: VITAL SIGNS: Temperature 97.9, pulse 72, respiratory rate 18, blood pressure 97/46, oxygen saturation 95% on room air. GENERAL: Alert and oriented x3, resting comfortably in bed. Does not appear to be in acute distress, however, does have pain in her right leg. NECK: Supple. No JVD noted. CARDIOVASCULAR: Regular rate and rhythm. ABDOMEN: Soft and nontender. EXTREMITIES: Lower extremities, 4+ pitting edema. CARDIOVASCULAR MEDICATIONS: Furosemide 40 mg p.o. daily, atorvastatin 20 mg p.o. at bedtime. IMPRESSION: 1. History of cardiac arrest. 2. History of pleural effusions. 3. Sacral decubitus ulcer. 4. Anemia. 5. Diastolic dysfunction. Chronic kidney disease. RECOMMENDATIONS: Continue the above-listed cardiac medications. A repeat labs given initiation of diuretic yesterday. Maintain on telemetry at all time. Per echo, the patient has preserved left ventricular systolic function. No evidence of acute myocardial infarction noted on workup. Dictated by Carli Bautista NP MD JIMMY Araiza/DARRELL /[id number]
[2019-11-02 13:00] LABS: ANION GAP 9.5 mmol/L (8-16); CREATININE, SERUM 1.24 mg/dL (0.57-1.11)
[2019-11-02] MEDS: BALSAM PERU/CASTOR OIL 60 GM OINT...G. TP SCH (13:00)
[2019-11-02 13:03] LABS: CALCIUM 6.9 mg/dL (8.4-10.2); POTASSIUM 2.5 mmol/L (3.5-5.1)
[2019-11-02] MEDS ORDERED: CALCIUM GLUCONATE 10% INJ 13.95 MEQ in SODIUM CHLORIDE 0.9% 100 ML 100 ML IV ONE (13:30)
[2019-11-02] MEDS ORDERED: MAGNESIUM SULF 1GRAM/DEXTROSE 200 ML IV ONE (13:30)
[2019-11-02] MEDS: SIMETHICONE 80 MG CHEW PO SCH ×2 (13:43→21:43)
--- NOTE | 2019-11-02 15:55 | Progress Note ---
DATE: 11/02/2019 Nephrology Followup Note SUBJECTIVE: The patient is awake and comfortable. Does admit to some nausea. No abdominal pain. OBJECTIVE: GENERAL: Appears in no acute distress. VITAL SIGNS: Blood pressure 93/48, pulse 78 per minute, afebrile, and oxygen saturation 93% on room air. NECK: Supple without jugular venous distention. RESPIRATORY: Bilateral air entry, without distress. CARDIOVASCULAR: S1 and S2. ABDOMEN: Soft, obese, but not distended. EXTREMITIES: Both lower legs do have 2+ pitting edema. LABORATORY DATA: Sodium 142, potassium low at 2.5, bicarb 21, creatinine 1.2, BUN 8, EGFR is 42, glucose 153, total calcium 6.9, and last serum albumin was 1.5. CT and renal ultrasound show atrophic right kidney, and normal-appearing left. IMPRESSION: 1. Likely chronic kidney disease stage 3, although the function may yet improve with better hemodynamics and improve serum albumin level. 2. Atrophic right kidney by imaging. Normal-appearing left kidney. 3. Hypokalemia, secondary to inadequate p.o. intake. Being replaced by mouth. 4. Severe hypoalbuminemia, from recent chronic illness. Although her total calcium appears low, but the corrected calcium is probably only marginally low. Asymptomatic from the hypocalcemia. 5. Hypomagnesemia, replaced IV. RECOMMENDATIONS: 1. I have ordered vitamin D levels, intact PTH to assess for any potential reasons for hypocalcemia. She should not need any IV calcium unless symptomatic. 2. Agree with replacement of potassium and magnesium. 3. I have placed her on calcium carbonate 500 mg p.o. b.i.d., chewable. 4. We will need nutritional counseling to improve serum albumin level. 5. Avoid all known nephrotoxins including NSAIDs, IV iodine contrast as possible. 6. We will discontinue Lasix for now, as her respiratory status appears stable and the peripheral edema is most likely on the basis of hypoalbuminemia. Johny Omalley MD [facility]/MODL /[id number]
[2019-11-02] MEDS ORDERED: POTASSIUM CHLORIDE 10MEQ EA PO NR (16:30)
[2019-11-02] MEDS: CALCIUM CARBONATE 500 MG CHEWABLE TABS PO SCH (17:07)
--- NOTE | 2019-11-02 20:20 | NUR ---
IM - progress note O/N see below ROS: unreliable v/s; revd PE tired appearing anicteric ns1s2 mod bs soft abdomen; nontender stage 4 sacral ulcer 2 + leg edema skin dry flat affect awake; confused labs/meds revd A/P: 79yoF Stage 4 sacral ulcer- LWC; Peripheral edema- check echo; Hx pleural effusions- check echo PHysical deconditioning- PT consult Recent cardiac arrest?- get records; check echo; cardio eval Moderate anemia- check panel CHIOMA vs CKD- was on temp dialysis; check renal U/S UTI- iv abx; check culture Hypokalemia- f/u Prop: scd Dispo: check echo and renal U/S. Wound care consult. Nephr consult; Obtain records from: 1. [facility] 2.[facility] in [facility]. D/W granddaughter 7- start flagyl for diarrhea; cont IV abx; start PT; check labs; d/c azithromycin; ID consult; 10-31 renal fn unchanged; f/u cultures; 11-01 Hypokalemia- replace; Hypomagnesemia- replace; Hypocalcermia- replace; Proteus/Klebsiella UTI- IV abx; Tj Navarrete MD, PHD.
[2019-11-02] MEDS: ATORVASTATIN 20 MG TAB PO SCH (21:43)
[2019-11-02] MEDS ORDERED: POTASSIUM CHLORIDE 10MEQ EA PO ONE (22:15)
[2019-11-03] VITALS (8 sets, daily range): BP systolic 90–108; BP diastolic 45–70
[2019-11-03] MEDS: MEROPENEM 1GM 100 ML IV SCH (05:39)
[2019-11-03 06:48] LABS: BASOPHILS # (AUTO) 0.1 (0.0-0.1); BASOPHILS % 0.7 % (0.0-1.0); EOSINOPHILS # (AUTO) 0.3 (0.0-0.4); EOSINOPHILS % 4.7 % (0.0-6.0); HEMOGLOBIN 7.9 g/dL (12.0-16.0); LYMPHOCYTES # (AUTO) 1.4 (1.0-3.2); LYMPHOCYTES % 19.3 % (18.0-39.1); MEAN CORPUSCULAR HEMOGLOBIN 26.5 pg (28-32); MEAN CORPUSCULAR HGB CONC 31.6 g/dL (31-35); MEAN CORPUSCULAR VOLUME 83.9 fL (81-99); MONOCYTES # (AUTO) 0.3 (0.2-0.8); MONOCYTES % 4.7 % (4.4-11.3); NEUTROPHILS # (AUTO) 5.1 (2.1-6.9); PLATELET COUNT 210 x10e3/uL (140-360); RED BLOOD COUNT 2.98 x10e6/uL (3.6-5.1); RED CELL DISTRIBUTION WIDTH 19.3 % (11.7-14.4)
[2019-11-03 07:07] LABS: ANION GAP 10.2 mmol/L (8-16); CREATININE, SERUM 1.12 mg/dL (0.57-1.11); MAGNESIUM 1.7 MG/DL (1.3-2.1); PHOSPHORUS 2.2 MG/DL (2.3-4.7); POTASSIUM 3.2 mmol/L (3.5-5.1)
[2019-11-03] MEDS: PANTOPRAZOLE SOD 40 MG TABEC PO SCH (09:00)
[2019-11-03] MEDS: BALSAM PERU/CASTOR OIL 60 GM OINT...G. TP SCH (09:00)
[2019-11-03] MEDS: CALCIUM CARBONATE 500 MG CHEWABLE TABS PO SCH ×2 (09:00→16:38)
[2019-11-03] MEDS: POTASSIUM CHLORIDE 20 MEQ TAB CR PO SCH ×3 (09:00→18:00)
--- NOTE | 2019-11-03 09:00 | NUR ---
Wound care completed and wound culture collected.
[2019-11-03 09:02] LABS: EOSINOPHILS % (MANUAL) 1 % (0-7); LYMPHOCYTES % (MANUAL) 7 % (19-48); MONOCYTES % (MANUAL) 1 % (3.4-9.0); NEUTROPHILS % (MANUAL) 89 % (40-74)
[2019-11-03 09:03] LABS: ANISOCYTOSIS MODERATE; HYPOCHROMASIA MODERATE
[2019-11-03 09:04] LABS: OVALOCYTES FEW; TEAR DROP CELLS FEW
[2019-11-03 09:05] LABS: PLATELET ESTIMATE ADEQUATE; PLATELET MORPHOLOGY COMMENT NORMAL; RBC MORPHOLOGY COMMENT ABNORMAL; SCHISTOCYTES RARE; TARGET CELLS FEW
--- NOTE | 2019-11-03 09:38 | NUR ---
Received order for inpatient rehab eval. Spoke with pt's granddaughter/MPOJohnna Bello, who gave choice for [facility]. Signed choice letter placed in front of chart. Referral faxed to [facility] at [phone]. Tamia with [facility] was informed of referral.
--- NOTE | 2019-11-03 12:04 | Progress Note ---
DATE: 11/03/2019 Cardiology Progress Note SUBJECTIVE: The patient denies chest pain or shortness of breath. OBJECTIVE: VITAL SIGNS: Temperature 97.2 degrees, pulse 85, respiratory rate 20, blood pressure 96/64, and oxygen saturation 94%. GENERAL: Awake, alert, no acute distress. LUNGS: Clear to auscultation bilaterally. No wheezes or crackles. CARDIOVASCULAR: Normal rate. Regular rhythm. No murmur. Normal S1, S2. ABDOMEN: Soft, nontender. EXTREMITIES: 2+ pitting edema. CARDIAC MEDICATIONS: Atorvastatin 20 mg p.o. at bedtime. LABORATORY DATA: WBC 7.25, hemoglobin 7.9, hematocrit 25, and platelets 210. Sodium 144, potassium 3.2, chloride 115, CO2 of 22, BUN 8, and creatinine 1.12. IMPRESSION: 1. Sacral decubitus ulcer. 2. Chronic kidney disease. 3. Diastolic dysfunction. 4. History of cardiac arrest. 5. Debility. RECOMMENDATIONS: Echocardiogram demonstrated normal LV systolic function with impaired relaxation. No significant valvular abnormalities were reported. Monitor volume status closely. Nephrology has discontinued Lasix as they suspect edema secondary to hypoalbuminemia instead. Monitor volume status closely. Monitor on telemetry. No evidence of myocardial infarction on serial cardiac biomarkers. The patient appears stable from a cardiac standpoint. Continue current cardiac medications. Thank you for this consult. We will continue to follow. Adele Scott MD ABS/MODL /[id number]
[2019-11-03] MEDS: CEFEPIME 1GM/NS 0.9% 50 ML 50 ML IV SCH ×2 (12:56→18:00)
[2019-11-03] MEDS: SIMETHICONE 80 MG CHEW PO SCH (12:56)
--- NOTE | 2019-11-03 15:31 | NUR ---
ACUTE INPATIENT REHAB DISCHARGE INFORMATION PATIENT HAS BEEN ACCEPTED TO: [address] [place] [address] ACCEPTING INTENSIVE CARE NURSE: Richelle Vasques ACCEPTING MD: Dr. Carlton Mo ROOM: will be assigned on report NURSE CALL REPORT TO: [phone] THE FOLLOWING DOCUMENTS MUST ACCOMPANY PATIENT FOR TRANSFER: Copy of chart, transfer MAR COPIED CHART: Grace, party plan sales unit sales leader MOT INFO RECEIVED FROM: Tamia with [facility] ORDER/RECONCILED MED LIST: to be obtained by bedside RN [id number] DNR: n/a MOT was completed and placed with pt's packet at nurses station. RODRIGUE Krueger was informed of MOT. Also notified pt's granddaughter Holly of acceptance.
--- NOTE | 2019-11-03 15:37 | NUR ---
Radiology notified that consent for PICC line has been signed
--- NOTE | 2019-11-03 17:00 | NUR ---
Patient's IV infiltrated. She has an order for PICC line placement
[2019-11-03] MEDS ORDERED: POTASSIUM PHOSPHATE 20 MM in SODIUM CHLORIDE 0.9% 250ML 250 ML IV ONE (17:30)
[2019-11-03] MEDS ORDERED: ALBUMIN 25% 12.5GM 0.25 GM/ML BTL IV SCH (18:00)
[2019-11-03 18:41] LABS: CREATININE,URINE RANDOM 57.58 mg/dL (47-110); TOTAL PROTEIN, URINE 53.9 mg/dL (1-14)
--- NOTE | 2019-11-03 19:05 | Progress Note ---
DATE: 11/03/2019 Renal Progress Note SUBJECTIVE: Followed for chronic kidney disease stage 3, stable kidney function. Creatinine is around 1.1 with GFR of 47 mL/min. No nausea, no vomiting, no shortness of breath. The patient does have edema of her legs. The patient's potassium is 3.2. The patient's calcium is still low at 7. Some workup is still pending. The patient's phosphorus is low at 2.2. Magnesium is normal at 1.7. The patient's last albumin was low at 1.5. Corrected calcium for the albumin is actually within normal range. No nausea, no vomiting, no shortness of breath. OBJECTIVE: VITAL SIGNS: Vital signs noted are stable. Blood pressure is 98/51, 88 pulse, 22 respiration, afebrile. LUNGS: Clear to auscultation bilaterally. CARDIOVASCULAR: S1, S2. No rub. ABDOMEN: Soft, nontender. EXTREMITIES: 2+ edema over lower extremities. No clubbing. No cyanosis. LABORATORY DATA: Sodium 144, potassium 3.2, chloride 115, bicarb 22, BUN is 8, creatinine 1.1, glucose 152, and calcium is 7. Last glucose was 1.5. Corrected calcium for the glucose is around 9. Magnesium is 1.7. Phosphorus 2.2. ASSESSMENT AND PLAN: 1. Chronic kidney disease stage 3. Stable kidney function. At present, the patient appears to be at baseline. We will leave off any IV fluids for now. Continue to monitor closely. 2. Hypocalcemia. Corrected calcium for the low albumin is actually within normal range at 9. The patient's last albumin was 1.5. The patient may benefit from IV albumin infusions. 3. Hypokalemia. We will replace both IV and orally and check magnesium levels. Today's magnesium level is normal. 4. Hypophosphatemia. We will replace with potassium phosphate IV. 5. Hypoalbuminemia may be from poor nutrition status, but we will check a urine protein, urine creatinine ratio. The patient does have history of diabetes mellitus, may have diabetic nephropathy at baseline. Cecilio Kerr MD TH/MODL /[id number]
--- NOTE | 2019-11-03 21:59 | NUR ---
IM - progress note O/N see below ROS: unreliable v/s; revd PE tired appearing anicteric ns1s2 mod bs soft abdomen; nontender stage 4 sacral ulcer 2 + leg edema skin dry flat affect awake; confused labs/meds revd A/P: 79yoF Stage 4 sacral ulcer- LWC; Peripheral edema- check echo; Hx pleural effusions- check echo PHysical deconditioning- PT consult Recent cardiac arrest?- get records; check echo; cardio eval Moderate anemia- check panel CHIOMA vs CKD- was on temp dialysis; check renal U/S UTI- iv abx; check culture Hypokalemia- f/u Prop: scd Dispo: check echo and renal U/S. Wound care consult. Nephr consult; Obtain records from: 1. [facility] 2.[facility] in [facility]. D/W granddaughter 10-30 start flagyl for diarrhea; cont IV abx; start PT; check labs; d/c azithromycin; ID consult; 10-31 renal fn unchanged; f/u cultures; 11-01 Hypokalemia- replace; Hypomagnesemia- replace; Hypocalcermia- replace; Proteus/Klebsiella UTI- IV abx; 11-02 TIme of service: 815am- cont LWC; ARU eval; d/c planning; Tj Navarrete MD, PHD.
[2019-11-03] MEDS ORDERED: CALCIUM GLUCONATE 10% INJ 9.3 MEQ in SODIUM CHLORIDE 0.9% 100 ML 100 ML IV ONE (22:00)
--- NOTE | 2019-11-03 22:59 | Diagnostic Imaging Report ---
Examination: Single AP view of the chest. COMPARISON: Portable chest 10/29/2019 INDICATION: PICC line placement IMPRESSION: Exam limited by patient rotation. 1. Lines and Tubes: Interval placement of right-sided PICC line, which has its distal tip projecting at the cavoatrial junction/proximal atrium. 2. Lungs are hypoinflated. Bibasilar linear opacities likely reflect atelectasis due to low lung volumes. No consolidation. 3. Stable prominence of the cardiac silhouette, which is partly due to portable AP projection. Central pulmonary venous crowding. 4. No acute bony abnormalities. Signed by: Dr. Bryan Brandon M.D. on 11/03/2019 10:56 PM
[2019-11-04] VITALS (7 sets, daily range): BP systolic 101–124; BP diastolic 53–68
[2019-11-04] MEDS: ALBUMIN 25% 12.5GM 50ML 50 ML IV SCH ×5 (00:09→17:05)
[2019-11-04] MEDS: ATORVASTATIN 20 MG TAB PO SCH ×2 (01:49→21:57)
[2019-11-04] MEDS: SIMETHICONE 80 MG CHEW PO SCH ×3 (01:49→23:30)
[2019-11-04] MEDS: CEFEPIME 1GM/NS 0.9% 50 ML 50 ML IV SCH ×3 (02:31→17:27)
[2019-11-04 05:57] LABS: BASOPHILS % 0.6 % (0.0-1.0); EOSINOPHILS # (AUTO) 0.5 (0.0-0.4); EOSINOPHILS % 8.3 % (0.0-6.0); HEMOGLOBIN 7.3 g/dL (12.0-16.0); LYMPHOCYTES # (AUTO) 1.4 (1.0-3.2); LYMPHOCYTES % 22.1 % (18.0-39.1); MEAN CORPUSCULAR HGB CONC 30.4 g/dL (31-35); MEAN CORPUSCULAR VOLUME 82.2 fL (81-99); MONOCYTES # (AUTO) 0.4 (0.2-0.8); MONOCYTES % 5.8 % (4.4-11.3); NEUTROPHILS # (AUTO) 4.1 (2.1-6.9); NEUTROPHILS % 62.7 % (38.7-80.0); PLATELET COUNT 169 x10e3/uL (140-360); RED BLOOD COUNT 2.92 x10e6/uL (3.6-5.1)
[2019-11-04 06:22] LABS: ALBUMIN 1.9 g/dL (3.5-5.0); ALBUMIN/GLOBULIN RATIO 0.7 (0.8-2.0); ANION GAP 9.9 mmol/L (8-16); CREATININE, SERUM 1.03 mg/dL (0.57-1.11); MAGNESIUM 1.6 MG/DL (1.3-2.1); PHOSPHORUS 2.3 MG/DL (2.3-4.7)
[2019-11-04 06:50] LABS: POTASSIUM 2.9 mmol/L (3.5-5.1)
--- NOTE | 2019-11-04 07:15 | NUR ---
patient endorsed to next shift for continuity of care.
--- NOTE | 2019-11-04 08:35 | Diagnostic Imaging Report ---
Examination: Single AP view of the chest. COMPARISON: Portable chest 11/03/2019 INDICATION: PICC line placement verification IMPRESSION: 1. Lines and Tubes: Right-sided PICC line has its distal tip projecting at the cavoatrial junction. 2. No interval change in bibasilar opacities, left greater than right, suggesting atelectasis. Signed by: Dr. Bryan Brandon M.D. on 11/04/2019 8:32 AM
[2019-11-04] MEDS: BALSAM PERU/CASTOR OIL 60 GM OINT...G. TP SCH (09:00)
[2019-11-04] MEDS: PANTOPRAZOLE SOD 40 MG TABEC PO SCH (09:15)
[2019-11-04] MEDS: CHOLESTYRAMINE 4 GM PACKET PO SCH ×3 (09:15→21:57)
[2019-11-04] MEDS: CALCIUM CARBONATE 500 MG CHEWABLE TABS PO SCH ×2 (09:15→16:25)
--- NOTE | 2019-11-04 09:15 | NUR ---
Potassium phosphate infusion had to be stopped by night nurse for PICC line adjustment. PICC line xray shows line is in place now. Dr. Kerr is here making rounds and he is aware patient still needs to finish infusion and receive calcium gluconate that was ordered.
--- NOTE | 2019-11-04 09:42 | Progress Note ---
DATE: 11/04/2019 Renal Progress Note SUBJECTIVE: Followed for acute kidney injury on chronic kidney disease, stage 3. Kidney function remains stable at CKD stage 3. Creatinine is around 1.03. GFR 52 mL/minute. The patient continues to have profuse diarrhea. Hence, her potassium continues to stay low. The patient has been supplemented with potassium IV and orally. No nausea. No vomiting. No shortness of breath. The patient does indeed indicate that she has had improved strength. OBJECTIVE: VITAL SIGNS: Have been noted, stable. Blood pressure is 122/64, 81 pulse, afebrile. LUNGS: Clear to auscultation bilaterally. CARDIOVASCULAR: S1 and S2. No rub ABDOMEN: Soft and nontender. EXTREMITIES: 2+ edema. LABORATORY DATA: Potassium is 2.9, sodium 144, BUN is 10, creatinine 1.03, phosphorus 2.3, and calcium is 7.0. IMPRESSION AND PLAN: 1. Acute kidney injury, resolved. The patient is not on any IV fluids at this time. 2. Chronic kidney disease, stage 3, stable at baseline. 3. Hypokalemia from profound total body potassium deficit. We will increase potassium orally to 40 mEq 3 times a day. Also give additional IV potassium chloride 30 mEq IV x1. 4. Hypophosphatemia, improved. We will also get the rest of her potassium phosphate. 5. Hypocalcemia. Corrected calcium actually is normal for the albumin. The patient is getting albumin infusions. The patient is also to receive 2 g of calcium gluconate. We will check an ionized calcium level in the morning also. Cecilio Kerr MD /MODL /[id number] cc: Camacho Navarrete MD
[2019-11-04] MEDS ORDERED: SODIUM CHLORIDE 0.9% 250ML 250 ML ONE (10:04)
[2019-11-04] MEDS ORDERED: POTASSIUM CHLORIDE 10MEQ/100ML 300 ML IV ONE (10:30)
[2019-11-04] MEDS: POTASSIUM CHLORIDE 20 MEQ TAB CR PO SCH ×3 (11:59→21:57)
--- NOTE | 2019-11-04 16:24 | NUR ---
Per Dr. Navarrete. Do not give 2nd and 3rd bag of IV potassium due to repeat K being 3.2. orders received for stat HH
[2019-11-04 16:45] LABS: HEMATOCRIT 23.2 % (34.2-44.1); HEMOGLOBIN 7.1 g/dL (12.0-16.0)
--- NOTE | 2019-11-04 16:45 | NUR ---
Notified Tamia with [facility] that Dr. Navarrete is requesting Dr. Pond be consulted for medical management.
--- NOTE | 2019-11-04 17:56 | NUR ---
Second attempted call Dr. Navarrete to notify him of hemoglobin 7.1 He stated "I will call you right back".
--- NOTE | 2019-11-04 18:12 | NUR ---
Dr. Navarrete returned call. I notified him of patient's hemoglobin level 7.1. Orders received
[2019-11-04] MEDS ORDERED: SODIUM CHLORIDE 0.9% 250ML 250 ML IV ONE (18:15)
--- NOTE | 2019-11-04 18:56 | Progress Note ---
DATE: 11/04/2019 Cardiology Progress Note SUBJECTIVE: The patient denies chest pain or shortness of breath. She is having diarrhea. OBJECTIVE: VITAL SIGNS: Temperature 98.2 degrees, pulse 81, respiratory rate 20, blood pressure 122/64, and oxygen 93%. GENERAL: Chronically ill-appearing woman, no acute distress. LUNGS: Clear to auscultation bilaterally. No wheeze or crackles. HEART: Normal rate, regular rhythm. No murmur. Normal S1, S2. ABDOMEN: Soft, nontender. EXTREMITIES: 2+ pitting edema. CARDIAC MEDICATIONS: Atorvastatin 20 mg p.o. at bedtime. LABORATORY DATA: WBC 6.5, hemoglobin 7.3, hematocrit 24, and platelets 169. Sodium 144, potassium 2.9, chloride 115, CO2 of 22, BUN 10, and creatinine 1.03. TELEMETRY: Personally reviewed and interpreted revealing normal sinus rhythm with PACs. IMPRESSION: 1. Sacral decubitus ulcer. 2. Chronic kidney disease. 3. Diastolic dysfunction. 4. History of cardiac arrest. 5. Debility. RECOMMENDATIONS: Echocardiogram demonstrated normal LV systolic function with impaired relaxation. No significant valvular abnormalities were observed. Monitor volume status closely. Nephrology has discontinued diuretics, as they suspect edema secondary to hypoalbuminemia instead. Monitor volume status closely. Monitor on Telemetry. No evidence of myocardial infarction on serial cardiac biomarkers. The patient is stable from a cardiac standpoint. Continue current cardiac medications. Thank you for this consult. We will continue to follow. Adele Scott MD ABS/MODL /[id number]
--- NOTE | 2019-11-04 19:26 | NUR ---
IM - progress note O/N see below ROS: unreliable v/s; revd PE tired appearing anicteric ns1s2 mod bs soft abdomen; nontender stage 4 sacral ulcer 2 + leg edema skin dry flat affect awake; confused labs/meds revd A/P: 79yoF Stage 4 sacral ulcer- LWC; Peripheral edema- check echo; Hx pleural effusions- check echo PHysical deconditioning- PT consult Recent cardiac arrest?- get records; check echo; cardio eval Moderate anemia- check panel CHIOMA vs CKD- was on temp dialysis; check renal U/S UTI- iv abx; check culture Hypokalemia- f/u Prop: scd Dispo: check echo and renal U/S. Wound care consult. Nephr consult; Obtain records from: 1. [facility] 2.[facility] in [facility]. D/W granddaughter 10-30 start flagyl for diarrhea; cont IV abx; start PT; check labs; d/c azithromycin; ID consult; 10-31 renal fn unchanged; f/u cultures; 11-01 Hypokalemia- replace; Hypomagnesemia- replace; Hypocalcermia- replace; Proteus/Klebsiella UTI- IV abx; 11-02 TIme of service: 815am- cont LWC; ARU eval; d/c planning; 11-03 Proteus/Klebsiella/Strep/Yeast in wound; cont care; Worsening anemia- start H/H; if lower, give 2 units PRBC, check stool occult blood and hold discharge. Tj Navarrete MD, PHD.
--- NOTE | 2019-11-04 23:29 | NUR ---
Blood Transfusion started for patient vitals stable, verified with another nurse: Blood unit # [id number], EXP DATE: 11/18/2019, DONOR TYPE: 0 NEG, PT: 0 POS.
[2019-11-05] VITALS: BP 108/51
[2019-11-05] MEDS: CEFEPIME 1GM/NS 0.9% 50 ML 50 ML IV SCH ×3 (03:55→17:41)
[2019-11-05 04:00] VITALS: BP 117/58
[2019-11-05 06:23] LABS: ALANINE AMINOTRANSFERASE 10 IU/L (0-55); ALBUMIN/GLOBULIN RATIO 0.8 (0.8-2.0); ALKALINE PHOSPHATASE 113 IU/L (40-150); ANION GAP 8.6 mmol/L (8-16); BLOOD UREA NITROGEN 13 mg/dL (7-26); BUN/CREATININE RATIO 15 (6-25); CALCIUM 7.1 mg/dL (8.4-10.2); CARBON DIOXIDE 22 mmol/L (22-29); CHLORIDE 117 mmol/L (98-107); CREATININE, SERUM 0.88 mg/dL (0.57-1.11); EST GLOMERULAR FILTRATION RATE > 60 ML/MIN (60-); GLUCOSE 155 mg/dL (74-118); MAGNESIUM 1.6 MG/DL (1.3-2.1); PHOSPHORUS 2.2 MG/DL (2.3-4.7); POTASSIUM 3.6 mmol/L (3.5-5.1); SODIUM 144 mmol/L (136-145)
--- NOTE | 2019-11-05 06:35 | NUR ---
D/C summary Principal dx: Stage 4 sacral ulcer- LWC; Peripheral edema- check echo; Hx pleural effusions- check echo PHysical deconditioning- PT consult CHIOMA Hypocalcemia Hypokalemia Proteus/Klebsiella/Strep/yeast infected wound Secondary Dx: Recent cardiac arrest?- get records; check echo; cardio eval Moderate anemia- check panel CHIOMA vs CKD- was on temp dialysis; check renal U/S UTI- iv abx; check culture Hypokalemia- f/u Prop: scd Dispo: check echo and renal U/S. Wound care consult. Nephr consult; Obtain records from: 1. [facility] 2.[facility] in [facility]. D/W granddaughter 10-30 start flagyl for diarrhea; cont IV abx; start PT; check labs; d/c azithromycin; ID consult; 10-31 renal fn unchanged; f/u cultures; 11-01 Hypokalemia- replace; Hypomagnesemia- replace; Hypocalcermia- replace; Proteus/Klebsiella UTI- IV abx; 11-02 TIme of service: 815am- cont LWC; ARU eval; d/c planning; 11-03 Proteus/Klebsiella/Strep/Yeast in wound; cont care; Worsening anemia- start H/H; if lower, give 2 units PRBC, check stool occult blood and hold discharge. 11/04 check H/H d/c rehab f/u pcp 1 week and cardiology 1 week stable d/c>35mins Tj Navarrete MD, PHD.
[2019-11-05 06:45] LABS: HEMATOCRIT 27.4 % (34.2-44.1); HEMOGLOBIN 8.7 g/dL (12.0-16.0)
--- NOTE | 2019-11-05 06:56 | NUR ---
RECEIVED BEDSIDE SHIFT REPORT FROM OFF GOING NURSE. PATIENT IS RESTING IN BED. NO ACUTE DISTRESS NOTED. CALL LIGHT WITHIN REACH. BED IN THE LOWEST POSITION.
--- NOTE | 2019-11-05 07:00 | NUR ---
patient endorsed to next shift for continuity of care.
[2019-11-05] MEDS: PANTOPRAZOLE SOD 40 MG TABEC PO SCH ×2 (07:45→16:11)
[2019-11-05] MEDS: CALCIUM CARBONATE 500 MG CHEWABLE TABS PO SCH ×2 (07:45→16:11)
[2019-11-05] MEDS: ALBUMIN 25% 12.5GM 50ML 50 ML IV SCH ×2 (07:45→13:10)
[2019-11-05 07:54] VITALS: BP 125/70
[2019-11-05] MEDS: POTASSIUM CHLORIDE 20 MEQ TAB CR PO SCH (08:00)
[2019-11-05] MEDS: CHOLESTYRAMINE 4 GM PACKET PO SCH ×2 (09:00→14:24)
[2019-11-05] MEDS ORDERED: CALCIUM GLUCONATE 10% INJ 13.95 MEQ in SODIUM CHLORIDE 0.9% 100 ML 100 ML IV ONE (09:15)
--- NOTE | 2019-11-05 09:28 | Progress Note ---
DATE: 11/05/2019 Renal Progress Note SUBJECTIVE: The patient is followed for acute kidney injury on chronic kidney disease stage 2. Kidney function has improved. Creatinine is down to 0.9 with GFR of more than 60. Acute kidney injury resolved. No nausea. No vomiting. No shortness of breath. OBJECTIVE: VITAL SIGNS: Have been noted and are stable. Blood pressure 125/70. LUNGS: Clear to auscultation bilaterally. CARDIOVASCULAR: S1 and S2. No rub. ABDOMEN: Soft, nontender. EXTREMITIES: 1 to 2+ edema. LABORATORY DATA: Potassium is normal now at 3.6, BUN 13, creatinine 0.9, calcium 7.1, phosphorus 2.2, albumin 2.0. Ionized calcium is normal at 1.2. IMPRESSION AND PLAN: 1. Acute kidney injury, resolved. 2. Chronic kidney disease stage 2, at baseline, off any IV fluids. 3. Hypertension, controlled. 4. Hypokalemia, resolved. Now, we will decrease oral potassium to 40 mEq daily. 5. Diarrhea is subsiding also. 6. Hypocalcemia. Corrected calcium for albumin is actually normal and ionized calcium is normal. We will still supplement with IV calcium gluconate for now. 7. Hypophosphatemia. We will replace with potassium phosphate. Cecilio Kerr MD /MODL /[id number]
[2019-11-05] MEDS: BALSAM PERU/CASTOR OIL 60 GM OINT...G. TP SCH (09:35)
[2019-11-05 09:49] VITALS: BP 125/70
--- NOTE | 2019-11-05 10:40 | NUR ---
Updated clinical faxed to [facility] at [phone]
[2019-11-05] MEDS ORDERED: POTASSIUM PHOSPHATE 20 MM in SODIUM CHLORIDE 0.9% 250ML 250 ML IV ONE (11:00)
--- NOTE | 2019-11-05 11:08 | NUR ---
DR. COOK CLEARED FOR DISCHARGE.
--- NOTE | 2019-11-05 11:15 | NUR ---
DR. NGUYEN PATIENT OK TO TRANSFER TO REHAB.
[2019-11-05] MEDS: SIMETHICONE 80 MG CHEW PO SCH (11:21)
[2019-11-05 11:33] VITALS: BP 139/71
--- NOTE | 2019-11-05 11:56 | NUR ---
Per Tamia, pt is good to transfer to [facility]. RODRIGUE Hernández informed.
[2019-11-05] MEDS ORDERED: ONDANSETRON HCL 4 MG ORAL DISINTEGRATING TAB PO PRN (12:30)
[2019-11-05] MEDS ORDERED: DAPTOMYCIN 500mg 10ML 400 MG in SODIUM CHLORIDE 0.9% 100 ML IV SCH ×2 (13:00→14:00)
--- NOTE | 2019-11-05 15:24 | Progress Note ---
DATE: 11/05/2019 Cardiology Progress Note SUBJECTIVE: The patient denies chest pain or shortness of breath. OBJECTIVE: VITAL SIGNS: Temperature 98.6 degrees, pulse 81, respiratory rate 20, blood pressure 139/71, oxygen saturation 94% on room air. GENERAL: Chronically ill-appearing woman, in no acute distress. Awake and alert. LUNGS: Clear to auscultation bilaterally. No wheeze or crackles. CARDIOVASCULAR : Normal rate. Regular rhythm. No murmur. Normal S1 and S2. ABDOMEN: Soft and nontender. EXTREMITIES : 2+ pitting edema. CARDIAC MEDICATIONS: Atorvastatin 20 mg p.o. at bedtime. LABORATORY DATA: Hemoglobin 8.7, hematocrit 27.4. Sodium 144, potassium 3.6, chloride 117, CO2 of 22, BUN 13, and creatinine 0.88. TELEMETRY: Telemetry was personally reviewed and interpreted, revealing normal sinus rhythm. IMPRESSION: 1. Sacral decubitus ulcer. 2. Chronic kidney disease. 3. Diastolic dysfunction. 4. History of cardiac arrest. 5. Debility. RECOMMENDATIONS: Echocardiogram demonstrated normal LV systolic function with impaired relaxation. No significant valvular abnormalities were observed. Monitor volume status closely. Nephrology has discontinued diuretics as they suspect edema secondary to hypoalbuminemia. Monitor the patient on telemetry. No evidence of myocardial infarction on serial cardiac biomarkers. The patient is stable from a cardiac standpoint. No further cardiac evaluation is indicated at this time. Thank you for this consult. We will continue to follow. Adele Scott MD ABS/MODL /[id number]
[2019-11-05 15:49] VITALS: BP 135/70
--- NOTE | 2019-11-05 19:13 | NUR ---
BEDSIDE SHIFT REPORT GIVEN TO ONCOMING NURSE. PATIENT IS RESTING IN BED, NO ACUTE DISTRESS NOTED. CALL LIGHT WITHIN REACH. BED IN THE LOWEST POSITION. BED ALARM ON.
--- NOTE | 2019-11-05 20:56 | NUR ---
Patient transported via stretcher to [facility]. Patient in stable condition. Vital signs WNL.
[2019-11-06] MEDS ORDERED: POTASSIUM CHLORIDE 20 MEQ TAB CR PO SCH (09:00)
--- NOTE | 2019-11-17 06:26 | NUR ---
Addendum: Acute on Chr Diastolic CHF, as peripheral edema present on admission D/C summary Principal dx: Stage 4 sacral ulcer- LWC; Peripheral edema- check echo; Hx pleural effusions- check echo PHysical deconditioning- PT consult CHIOMA Hypocalcemia Hypokalemia Proteus/Klebsiella/Strep/yeast infected wound Acute on chr Diastolic CHF exa Peripheral edema Secondary Dx: Recent cardiac arrest?- get records; check echo; cardio eval Moderate anemia- check panel CHIOMA vs CKD- was on temp dialysis; check renal U/S UTI- iv abx; check culture Hypokalemia- f/u Prop: scd Dispo: check echo and renal U/S. Wound care consult. Nephr consult; [facility] D/W granddaughter 10-30 start flagyl for diarrhea; cont IV abx; start PT; check labs; d/c azithromycin; ID consult; 10-31 renal fn unchanged; f/u cultures; 11-01 Hypokalemia- replace; Hypomagnesemia- replace; Hypocalcermia- replace; Proteus/Klebsiella UTI- IV abx; 11-02 TIme of service: 815am- cont LWC; ARU eval; d/c planning; 11-03 Proteus/Klebsiella/Strep/Yeast in wound; cont care; Worsening anemia- start H/H; if lower, give 2 units PRBC, check stool occult blood and hold discharge. 11/04 check H/H d/c rehab f/u pcp 1 week and cardiology 1 week stable d/c>35mins Tj Navarrete MD, PHD.
--- OUTSIDE RECORDS SUMMARY | 2019-11-21 09:12 | XMS REPORT | Continuity of Care Document ---
Author Author [facility] t Organization [facility] Address [address] [place] [address] Phone Unavailable Care Team Providers Care Balloon Artist Name Role Phone Veronica MARQUEZ Attphys Unavailable JUDI CABALLERO Attphys Unavailable Veronica MARQUEZ Admphys Unavailable JUDI CABALLERO Admphys Unavailable Payers Payer Name Policy Type Policy Number Effective Date Expiration Date S ource Problems This patient has no known problems. Allergies, Adverse Reactions, Alerts Allergy Name Allergy Type Status Severity Reaction(s) Onset Date Inacti ve Date Treating Clinician Comments Source penicillin G DA Active U 2019-11-12 00:00:00 [facility] Medications This patient has no known medications. Procedures This patient has no known procedures. Results Test Description Test Time Test Comments Results Result Comments Source CHEST SINGLE (PORTABLE) 2019-11-18 08:58:00 [facility] [address] [address] Patient Name: ZEFERINO GUILLORY MR #: [id number] : 1940 Age/Sex: 79/F Req #: [id number] Adm Physician: CLAUDIO MARQUEZ MD Ordered by: CLAUDIO MARQUEZ MD Report #: [id number] Location: MED/SURG2 Room/Bed: [facility] Procedure: [id number] DX/CHEST SINGLE (PORTABLE) Exam Date: 11/18/19 Exam Time: 0801 REPORT STATUS: Signed EXAMINATION: CHEST SINGLE (PORTABLE) INDICATION: Shortness of breath COMPARISON: Chest radiograph of 11/15/2019 FINDINGS: LINES/TUBES:Weighted tip feeding tube terminates in the stomach. Right PICC line terminates in the SVC. EKG leads overlie the chest. LUNGS:The lungs are moderately inflated. There is perihilar fullness and indistinctness of the pulmonary vasculature. Bibasilar patchy opacities appear unchanged. PLEURA:Trace pleural effusions. No pneumothorax. MEDIASTINUM:The cardiomediastinal silhouette appears unchanged in size and shape. BONES/SOFT TISSUES:No acute osseous injury. ABDOMEN:No free air under the diaphragm. IMPRESSION: Central pulmonary vascular congestion and unchanged bibasilar patchy opacities, more likely subsegmental atelectasis than superimposed aspiration or pneumonia. Signed by: Edy Mccall MD on 11/18/2019 9:01 AM Dictated By: EDY MCCALL MD 0 Transcribed By: AN on 11/18/19900 COPY TO: CLAUDIO MARQUEZ MD ABDOMEN-1VIEW (KU) 2019-11-18 00:12:00 [address] [address] Patient Name: ZEFERINO GUILLORY MR #: [id number] : 1940 Age/Sex: 79/F Req #: [id number] Adm Physician: CLAUDIO MARQUEZ MD Ordered by: CLAUDIO MARQUEZ MD Report #: [id number] Location: MED/SURG2 Room/Bed: [facility] Procedure: [id number] DX/ABDOMEN-1VIEW (KUB) Exam Date: 11/17/19 Exam Time: 2320 REPORT STATUS: Signed EXAM: Abdomen Radiograph 1 View(s) INDICATION: dobhoff placement COMPARISON: CT dated 10/30/2019 FINDINGS: The tip of the Dobbhoff catheter projects over the gastric fundus. No dilated bowel loops are seen in the imaged upper abdomen. The lower abdomen and pelvis is not included in the [id number]-py-[id number]. Calcific density projecting over the inferior aspect of the liver relate to gallstones seen on CT dated 10/30/2019. IMPRESSION: 1. Dobbhoff catheter tip projects over the gastric fundus. 2. Cholelithiasis. Signed by: Ada Mora MD on 11/18/2019 12:16 AM Dictated By: ADA MORA MD Transcribed By: AN on 11/18/1915 COPY TO: CLAUDIO MARQUEZ MD MRI BRAIN WO 2019-11-17 13:18:00 [address] [place] [address] Patient Name: ZEFERINO GUILLORY MR #: [id number] : 1940 Age/Sex: 79/F Req #: [id number] Adm Physician: CLAUDIO MARQUEZ MD Ordered by: CLAUDIO MARQUEZ MD Report #: [id number] Location: MED/SURG2 Room/Bed: [facility] Procedure: [id number] MRI/MRI BRAIN WO Exam Date: Exam Time: REPORT STATUS: Signed History: Altered mental status Comparison studies: Head CT 11/15/2019. Technique: 3-D T1, axial T2 FLAIR, axial T2*GRE, axial T2 and axial DWI. Intravenous contrast: None Findings: Scalp: Normal in signal. No masses. Bone marrow: Normal in signal intensity. Brain sulci: Moderately prominent. Ventricles: Moderate compensatory dilatation. No hydrocephalus. Extra axial spaces: No mass, no fluid collection. Parenchyma: Multiple chronic cortical/subcortical infarcts with encephalomalacia and/or gliosis include the following: Left frontal lobe within the left middle frontal gyrus and left frontal [place] radiata, left subinsular white matter, right centrum semiovale along the right internal MCA watershed border zone, along the right inferior frontal gyrus, regional to the right middle occipital gyrus and in the bilateral cerebellar hemispheres. A few scattered T2 FLAIR hyperintense foci in the supratentorial white matter are nonspecific but are most compatible chronic microvascular ischemic changes. No mass or hemorrhage. Evaluation of the posterior fossa and inferior temporal lobes are somewhat limited artifacts on the DWI sequence. No gross abnormal restricted diffusion. Suprasellar region: No abnormalities. Craniocervical junction: Patent foramen magnum. No Chiari malformation. Vessels: Normal flow-voids in the arteries and sinuses. Incidental findings: Nonspecific mucosal thickening in the left sphenoid sinus. IMPRESSION: No acute intracranial abnormalities. Chronic findings: 1. Moderate generalized parenchymal volume loss. 2. Multiple small chronic infarcts within multiple vascular territories for which cardio/embolic etiology is a consideration. 3. Mild microvascular scheme changes. Recommendation: Correlate with cardiac history and echocardiogram if not recen tly performed. Neck and intracranial CTA or MRA may also further evaluate the vasculature. Signed by: Dr. Veda Hunt M.D. on 11/17/2019 1:34 PM Dictated By: VEDA HUNT MD [id number] Transcribed By: AN on 11/17/19 7943 COPY TO: CLAUDIO MARQUEZ MD CHEST SINGLE (PORTABLE) 2019-11-15 18:15:[address], [place], [place] [address] Patient Name: ZEFERINO GUILLORY MR #: [id number] : 1940 Age/Sex: 79/F Req #: [id number] Adm Physician: JUDI CABALLERO MD Ordered by: CLAUDIO MARQUEZ MD Report #: [id number] Location: MED/SURG2 Room/Bed: [facility] Procedure: [id number] DX/CHEST SINGLE (PORTABLE) Exam Date: 11/15/19 Exam Time: 1651 REPORT STATUS: Signed Examination: Single AP view of the chest. COMPARISON: Chest radiograph 11-14-2019. INDICATION: Shortness of breath. DISCUSSION: Lines/tubes: Right-sided PICC line with tip over the SVC. Lungs: Persistent bilateral lower lung zone p redominant patchy consolidation. Pulmonary venous congestion. Pleura: Small right and trace left pleural effusions. Heart and mediastinum: The heart and the mediastinum are unremarkable. Bones and soft tissues: No acute bony abnormalities. Degenerative changes in the thoracic spine. IMPRESSION: Bilateral lower lung zone patchy consolidation may represent pneumonia or atelectasis in the appropriate clinical setting. Possible superimposed pulmonary edema. Small right and trace left pleural effusions. Signed by: Dr. Devyn Kelly MD on 11/15/2019 6:17 PM Di ctated By: DEVYN KELLY MD 16 Transcribed By: AN on 11/15/191816 COPY TO: CLAUDIO MARQUEZ MD CT ABDOMEN/PELVIS WO 2019-11-15 01:16:00 [address] [place] [address] Patient Name: ZEFERINO GUILLORY MR #: [id number] : 1940 Age/Sex: 79/F Req #: [id number] [facility] Physician: CLAUDIO MARQUEZ MD Ordered by: BRE ROGERS DO Report #: [id number] Location: MED/SURG2 Room/Bed: [facility] Procedure: [id number] CT/CT ABDOMEN/PELVIS WO Exam Date: 11/15/19 Exam Time: 0040 REPORT STATUS: Signed EXAM: CT Abdomen and Pelvis WITHOUT contrast INDICATION: Abdominal pain. Wound. GI bleed. COMPARISON: None. TECHNIQUE: Abdomen and pelvis were scanned utilizing a multidetector helical scanner from the lung base to the pubic symphysis without administration of IV contrast. Absence of intravenous contrast decreases sensitivity for detection of focal lesions and vascular pathology. Coronal and sagittal reformations were obtained. Routine protocol was performed. IV CONTRAST: None. ORAL CONTRAST: Water RADIATION DOSE: Total DLP: 817.39 mGy*cm Estimated effective dose: (DLP x 0.015 x size factor) mSv COMPLICATIONS: None FINDINGS: Examination somewhat limited due to artifact from arms along patient's torso in the upper abdomen. LINES and TUBES: None. LOWER THORAX: Bilateral small pleural effusions, right greater than left increased since the prior examination. Bilateral lower lobe and lingular consolidation. HEPATOBILIARY: The liver is diffuse hypodense compared to the spleen, consistent with diffuse hepatic diffuse hepatic steatosis. No focal hepatic lesions. No biliary ductal dilation. GALLBLADDER: Dense gallbladder sludge against observed. Surgical clips/metallic densities again observed in the carline hepatis region. No wall thickening. SPLEEN: No splenomegaly. PANCREAS: No focal masses or ductal dilatation. Fatty infiltration of the pancreatic head. ADRENALS: No adrenal nodules KIDNEYS/URETERS: No hydronephrosis. 2.3 cm cyst exophytic of the posterior interpolar region of the left kidney. No stones. GI TRACT: No abnormal distention, wall thickening, or evidence of bowel obstruction. There is a large volume of stool within the rectosigmoid concern for fecal impaction. Appendix is normal. Ill-defined oval low-attenuation in the posterior lower rectum extending to the inner canal best seen on coronal image 83 is now well characterized with this examination; recommend correlation with physical examination. PELVIC ORGANS/BLADDER: Cortes catheter within the decompressed urinary bladder. Small calcified uterine leiomyomata again noted. LYMPH NODES: No lymphadenopathy. VESSELS: Unremarkable. PERITONEUM / RETROPERITONEUM: No free air or fluid. BONES: There are degenerative changes in the lumbar spine. SOFT TISSUES: Unremarkable. IMPRESSION: 1. Large volume of stool within the rectosigmoid suggesting fecal impaction. 2. Ill-defined oval low-attenuation in the posterior lower rectum extending to the anal canal is not well characterized with this examination; recommend correlation with physical examination or direct visualization. Signed by: Dr. Gurdeep Morton M.D. on 11/15/2019 1:28 AM Dictated By: KEVIN MORTON MD, MD 7 Transcribed By: AN on 11/15/19127 COPY TO: BRE ROGERS DO CT BRAIN WO 2019-11-15 00:58:00 [address] [address] Patient Name: ZEFERINO GUILLORY MR #: [id number] : 1940 Age/Sex: 79/F Req #: [id number] Adm Physician: CLAUDIO MARQUEZ MD Ordered by: BRE ROGERS DO Report #: [id number] Location: MED/SURG2 Room/Bed: [facility] Procedure: [id number] CT/CT BRAIN WO Exam Date: 11/15/19 Exam Time: 0040 REPORT STATUS: Signed History:Altered mental status, weakness Comparison studies: None Technique: Axial images were obtained from the skull base to the vertex. Coronal and sagittal images reconstructed from the axial data. Dose modulation, iterative reconstruction, and/or weight based adjustment of the mA/kV was utilized to reduce the radiation dose to as low as reasonably achievable. Intravenous contrast: None Findings: Scalp/skull: No abnormalities. Extra-axial spaces: No masses. No fluid collections. Brain sulci: Moderately prominent. Ventricles: Moderate compensatory dilatation. No hydrocephalus. Parenchyma: A focal chronic nonspecific insult is centered in the left deep frontal [place] radiata and centrum semiovale white matter. An old lacunar insult is located in the left anterior subinsular region. Subtle hypodensities in the supratentorial white matter are small vessel ischemic changes. No masses, hemorrhage, acute or chronic cortical vascular insults. Sellar/suprasellar region: No abnormalities. Craniocervical junction: Patent foramen magnum. No Chiari one malformation. Incidental findings: Nonobstructive retention cyst in the left sphenoid sinus. Subtle atherosclerotic calcifications in the carotid siphons and left vertebral artery Impression: No acute intracranial abnormalities. Chronic findings: 1. Moderate generalized volume loss. 2. Mild supratentorial white matter small vessel ischemic changes. 3. Nonspecific focal infiltrate (left deep frontal white matter and left subinsular region). Signed by: Dr. Rafa Arreola M.D. on 11/15/2019 1 :01 AM Dictated By: RAFA ARREOLA MD, MD 0 Transcribed By: AN on 11/15/19100 COPY TO: BRE ROGERS DO CHEST SINGLE (PORTABLE) 2019-11-14 19:12:00 [address] [place] [address] Patient Name: ZEFERINO GUILLORY MR #: [id number] : 1940 Age/Sex: 79/F Req #: [id number] Adm Physician: Ordered by: BRE ROGERS DO Report #: [id number] Location: ER Room/Bed: Procedure: [id number] DX/CHEST SINGLE (PORTABLE) Exam Date: 11/14/19 Exam Time: 1849 REPORT STATUS: Signed Examination: Single AP view of the chest. COMPARISON: November 04, 2019 INDICATION: Weakness altered mental status DISCUSSION: Lines/tubes: Right-sided PICC line with tip over the SVC. Lungs: Lower lung airspace consolidation, greater on the right which has progressed. Pulmonary venous congestion. Pleura: Possible small effusions. Heart and mediastinum: The heart and the mediastinum are unremarkable. Bones and soft tissues: No acute bony abnormalities. IMPRESSION: 1. Bilateral airspace consolidation, greater on the right. Signed by: Dr. Anabella Gordon M.D. on 11/14/2019 7:19 PM Dictated By: ANABELLA GORDON MD 18 Transcribed By: AN on 11/14/191918 COPY TO: BRE ROGERS DO CREATININE W ESTIMATED GFR 2019-11-13 07:39:00 Test Item BEDSIDE CREATININE (test code = CREATBED) 1.5 MG/DL 0.6-1.3 H GLOMERULAR FILTRATION RATE POC (test code = GFRBED) 36 ML/MIN ENTER BEDSIDE CREATININE RESULT: 1.49Serial Number: [id number] Name of User Perfo rming Test: TCH- CTA CHEST FOR [id number] 16:23:00 Name: ZEFERINO GUILLORY [facility] [place] : 1940 Age/S: 79 / F [address] [place] [address] Unit #: [id number] Loc: [place] [address] Phys: Carlton Mo MD Acct: [id number] Dis Date: Status: REG CLI PHONE #: [phone] Exam Date: 11/12/2019 1550 FAX #: [phone] Reason: CRITICAL ILLNESS MYOPATHY EXAMS: CPT CODE: [id number] [place] [address] EXAM: CTA CHEST WITH CONTRAST DATE: 11/12/2019 3:00 PM : 1940; Age: 79 years y/o Female INDICATION: Shortness of breath CRITICAL ILLNESS MYOPATHY COMPARISON: None TECHNIQUE: Volumetric CT of the chest is acquired during pulmonary arterial phase following intravenous administration of contrast. Coronal and sagittal reconstructions were created. Three- dimensional or MIP reconstructions of the pulmonary arterial system were created at an independent workstation. IV Contrast: 100 mL Isovue DLP: 136 mGy-cm CT imaging performed at this location utili expresscoin radiation dose optimization techniques which include one or more of th e following: -Automated exposure control -Adjustment of the mA and/o r kV according to patient size -Use of iterative reconstruction technique FINDINGS: Lymph Nodes: Right PICC line with tip within the SVC. No lymphadenopathy. Heart, pericardium and aorta: Bor derline cardiomegaly. Main pulmonary artery is prominent measuring 3.4 cm. Atheromatous changes are present in the aorta.. Pulmonary emboli: Mild pulmonary embolus is seen in the right middle lobe segment. No central pulmonary emboli. Mild pulmonary emboli seen in the distal lef t lower lobe branches. Minimal pulmonary emboli seen scattered in the lef t upper lobe distal branches. No right heart strain. LUNGS: Mild right pleural effusion with compressive atelectatic changes. Minimal left pleural effusion. Detailed evaluation of lungs is limited secondary to motion artifacts. Mild patchy nodular opacities are seen in bilateral lungs. Subtle mild patchy groundglass changes. Moderate atelectasis of the right lower lobe. Minimal scattered atelectasis in the left lower bettie g. Upper abdomen: No acute findings in visualized upper abdomen. Soft tissues: Normal. PAGE 1 Signed Rep ort (CONTINUED) Name: ZEFERINO GUILLORY [facility] [place] : 1940 Age/S: 79 / F [address] [facility] [address] Unit #: [id number] Loc: [place], [place] [address] Phys: Carlton Mo MD Acct: [id number] Dis Date: Status: REG CLI PHONE #: [phone] Exam Date: 11/12/2019 1550 FAX #: [phone] Reason: CRITICAL ILLNESS MYOPATHY EXAMS: CPT CODE: [id number] [place] [address] <Continued> Bones: No acute abnormality. Age-related degenerative findings. Few subacute or chronic left anterolateral ribs deformity. IMPRESSION: 1. Bilateral pulmonary emboli without central pulmonary embolism. 2. Cardiomegaly with pulmonary hypertension. Subtle patchy ground glass changes, which may represent edema. 3. Detailed evaluation of lungs is limited secondary to motion artifacts. Mild patchy nodular opacities are seen, which may represent infectious or inflammatory process. [address] without contrast follow-up is recommended to ensure clearing of this opacities and excluded malignancy. 4. Small right and minimal left pleural effusion. Moderate atelectasis of the right lower lobe. Significant findings were communicated to Carlton Mo MD on 11/12/2019 4:11 PM. SL: [id number] at 1623 Reported and signed by: Scar Mendoza D.O. CC: Carlton Mo MD Technologist:RT Quynh(R)(CT) CTDI: DLP: Trnscb Date/Time: 11/12/2019 (162) t.[id number].[id number] Orig Print D/T: S: 11/12/2019 (7570) PAGE 2 Signed Report - CT ABD PELVIS W/O [id number] 17:00:00 Name: ZEFERINO GUILLORY [facility] : 1940 Age/S: 79 / F [address] [place] [address] Bl Unit #: [id number] Loc: [place], [place] [address] Phys: Johny Hernandez MD Acct: [id number] Dis Date: Status: REG CLI PHONE #: [phone] Exam Date: 11/10/2019 1621 FAX #: [phone] Reason: EVAL FOR ILEUS OR SBO EXAMS: CPT CODE: [id number] CT ABD PELVIS W/O CONT 03585 Clinical indication: EVAL FOR ILEUS OR SBO, DATE: 11/10/2019 3:52 PM : 1940; Age: 79 years y/o Female Comparison: None. TECHNIQUE: Volumetric CT acquisition of the abdomen and pelvis without intravenous contrast. Axial, coronal and sagittal reconstructions. Enteric contrast: None. DLP: 599.0 mGy-cm CT imaging performed at this location utilizes radiation dose optimization techniques which include one or more of the following: -Automated exposure control - Adjustment of the mA and/or kV according to patient size -Use of iterative reconstruction technique FINDINGS: Evaluation of the solid organs and vascular structures is limited without intravenous contrast. Lower thorax: Moderate size right pleural effusion. Small left pleural effusion. Tip of the catheter identified at the atriocaval junction. Mild coronary artery calcification. Atelectasis at the lung bases. Liver: Fatty infiltration of the liver. Gallbladder: Status post cholecystectomy. Adrenals: Unremarkable. Kidneys and ureters: Left renal cyst. No renal or ureteral calculi. No hydronephrosis or hydroureter. Spleen: PAGE 1 Signed Report (CONTINUED) Name: ZEFERINO GUILLORY [facility] : 1940 Age/S: 79 / F [address] [place] [address] Unit #: [id number] Loc: [place] [address] Phys: Johny Hernandez MD Acct: [id number] Dis Date: Status: REG CLI PHONE #: [phone] Exam Date: 11/10/2019 1621 F AX #: [phone] Reason: EVAL FOR ILEUS OR SBO EXAMS: CPT CODE: [id number] CT ABD PELVIS W/O CONT 16504 <Continued> No splenomegaly. Pancreas: Pancreatic atrophy. No peripancreatic inflammatory changes or fluid. No pancreatic ductal dilatation. Visualized Gastrointestinal tract: Mildl y dilated loops of small and large bowel suggestive of ileus. Colonic dive rticulosis without diverticulitis. Peritoneum, mesentery and retro peritoneum: No free air, lymphadenopathy, ascites or loculated fl uid. Lymph nodes: No enlarged lymph nodes. Vascular: Atherosclerotic calcification. Abdominal aorta is normal in caliber. Reproductive organs: Unremarkab le as visualized. Bladder: Unremarkable. Soft tissues: Subcutaneous edema. Decubitus ulcer identified the level of the coccyx extending to the coccyx. Bones: Bones are osteopenic. Multilevel degenerative changes of the spine. No suspicious destructive osseous lesion. IMPRESSION: PAGE 2 Signed Report (CONT INUED) Name: ZEFERINO GUILLORY [facility] Richi Cobb : 1940 Age/S: 79 / F [address] [place] [address] Unit #: [id number] Loc: [place] [address] Phys: Johny Pineda MD Acct: [id number] Dis Date: Status: REG CLI [place] NE #: [phone] Exam Date: 11/10/2019 1621 FAX #: [phone] Reason: EVAL FOR ILEUS OR SBO EXAM S: CPT CODE: [id number] CT ABD PELVIS W/O CONT 87986 <Continued> 1. Mildly dilated loops of small and large bowel suggestive of ileus 2. Fatty infiltration liver 3. Small bilateral pleural effusions and atelectasis of the lung bases 4. Decubitus ulcer SL: [id number] at 1700 Reported and signed by: Kailey Vincent M.D. CC: Johny Hernandez MD Technologist:RT Aamir(R) CTDI: DLP: Trnscb Da te/Time: 11/10/2019 (1700) t.SDR.M913 Orig Print D/T: S: 0 11/10/2019 (1703) PAGE 3 Signed Report CHEST SINGLE (PORTABLE)2019-11-04 08:30:00 [place] [address] Patient Name: ZEFERINO GUILLORY MR #: [id number] : 1940 Age/Sex: 79/F Req #: [id number] Adm Physician: JUDI CABALLERO MD Ordered by: JUDI CABALLERO MD Report #: [id number] Location: MED/SURG2 Room/Bed: [facility] Procedure: DX/CHEST SINGLE (PORTABLE) Exam Date: 11/04/19 Exam Time: 0710 REPORT STATUS: Signed Examination: S abel AP view of the chest. COMPARISON: Portable chest 11/03/2019 INDIC ATION: PICC line placement verification IMPRESSION: 1. Lines and Tubes: Right-sided PICC line has its distal tip projecting at the cavoatrial junction. 2. No interval change in bibasilar opacities, left greater than righ t, suggesting atelectasis. Signed by: Dr. Bryan Lucas M.D. on 11/03 8:32 AM Dictated By: BRYAN LUCAS MD 1 Transcribed By: AN on 11/04/19831 COPY TO: JUDI CABALLERO MD CHEST XRAY LINE [id number] 22:54:00 [place] [address] Patient Name: ZEFERINO GUILLORY MR #: [id number] : 1940 Age/Sex: 79/F Req #: [id number] Adm Physician: JUDI CABALLERO MD Ordered by: JUDI CABALLERO MD Report #: [id number] Location: MED/SURG2 Room/Bed: [facility] Procedure: [id number] DX/CHEST XRAY L INE PLACEMENT Exam Date: 11/03/19 Exam Time: 2225 REPORT STATUS: Signed Examination: Single AP view of the chest. COMPARISON: Portable chest 10/29/2019 WILFRED CATION: PICC line placement IMPRESSION: Exam limited by patient rotatio n. 1. Lines and Tubes: Interval placement of right-sided PICC line, which has its distal tip projecting at the cavoatrial junction/proximal atrium. 2. Lungs are hypoinflated. Bibasilar linear opacities likely reflect atelectasis due to low lung volumes. No consolidation. 3. Stable prominence of the car diac silhouette, which is partly due to portable AP projection. Central pulmo nary venous crowding. 4. No acute bony abnormalities. Signed by: Dr. Kade Lucas M.D. on 11/03/2019 10:56 PM Dictated By: BRYAN LUCAS MD 55 Transcribed By: AN on 11/03/192255 COPY TO: JUDI CABALLERO MD RENAL RETROPERITONEAL [id number] 17:09:00 [place] [address] Patient Name: ZEFERINO GUILLORY MR #: [id number] : 1940 Age/Sex: 79/F Req #: [id number] Adm Physician: JUDI CABALLERO MD Ordered by: JUDI CABALLERO MD Report #: [id number] Location: MED/SURG2 Room/Bed: [facility] Procedure: [id number] US/US RENAL RET ROPERITONEAL COMP Exam Date: 10/30/19 Exam Time: 163 3 REPORT STATUS: Signed Renal ul trasound Comparison: None Clinical History: ATI versus EK D Tech nique: Sonographic evaluation of the kidneys was performed. Multiple images w ere submitted for interpretation, using a low-frequency curved transducer. Right kidney: The right kidney is not visualized. The patient has a large domonique dy habitus that makes ultrasound examination technically difficult. Also based on the CT today, the the right kidney is small in size. Left kidney: T he kidney measures 10 x 4.5 x 3.7 cm with a cortical thickness of 0.9 cm. The cortical echogenicity is within normal limits. There is no evidence of a focal mass. There is no evidence of hydronephrosis. There is no evidence of a s hadowing stone. There is sonographic evidence of a 2 x 2.1 x 1.9 cm simple ex ophytic cyst. There is no evidence of a perinephric fluid collection. Flow i s visualized to the left kidney. Survey images of the bladder demonstrat e no abnormality. Impression: Right kidney is not seen on this exam. Left kidney is unremarkable. Signed by: Dionicio Malin MD on 10/30/2019 5:16 PM Dictated By: DIONICIO MALIN MD 15 Transcribed By: AN on 10/30/191715 COPY TO: JUDI CABALLERO MD CT ABDOMEN/PELVIS [id number] 14:30:00 [place] [address] Patient Name: ZEFERINO GUILLORY MR #: [id number] : 1940 Age/Sex: 79/F Req #: [id number] Adm Physician: JUDI CABALLERO MD Ordered by: JUDI CABALLERO MD Report #: [id number] Location: MED/SURG2 Room/Bed: [facility] Procedure: [id number] CT/CT ABDOMEN/P NILTON WO Exam Date: 10/30/19 Exam Time: 1400 REPORT STATUS: Signed CT of the abdomen and pelvis. Comparison: Clinical History: Suspected colitis Technique: Helical CT scan of the abdomen and pelvis was performed. Intraven ous contrast administration was not utilized. Oral contrast administration wa s not utilized. Coronal and sagittal reconstructions were generated from the r aw data. Multiple images were submitted for interpretation. This exam wa s performed according to our departmental dose-optimization program which incl udes automated exposure control, adjustment of the mA and/or kV according to p atient size Discussion: Inferior chest: Small bilateral pleural effus ions left more than right. Dependent atelectasis. Coronary artery calcificatio n. Anemia. Liver: Diffuse fatty infiltration. Spleen: Unremarkable Panc reas: Age related atrophy Biliary tree and gallbladder: Vicarious excretion of contrast in the gallbladder otherwise unremarkable Adrenal glands: Unrem arkable Kidneys and ureters: Large left exophytic renal cyst. Atrophic right kidney. Vasculature: Atherosclerotic calcification Lymph nodes: No lymphad enopathy Bowel: Air distended loops of colon within limits of normal. Liquid fecal matter in the rectum. Inspissated barium in the rectum. Pelvis: Urinar y bladder is unremarkable. Internal genitalia unremarkable. Pelvic wall unrema rkable. Peritoneum: Unremarkable Perineal compartments: unremarkable. Flui d: No free fluid. Bones: Degenerative changes Body wall: Dependent edema v ersus hematoma in the right upper chest wall. Impression: No definite sig ns of colitis on this exam. Signed by: Dionicio Malin MD on 10/30/2019 2:38 P M Dictated By: DIONICIO MALIN MD 1438 Transcribed By: AN on 10/30/19 1438 COPY TO: JUDI CABALLERO MD CHEST SINGLE (PORTABLE)2019-10-29 15:25:00 [place] [address] Patient Name: ZEFERINO GUILLORY MR #: [id number] : 1940 Age/Sex: 79/F Req #: [id number] Adm Physician: Ordered by: EVELYNE RIOS MD Report #: [id number] Location: ER Room/Bed: Procedure: [id number] DX/CHEST SING LE (PORTABLE) Exam Date: 10/29/19 Exam Time: 1450 REPORT STATUS: Signed EXAMINATION: CHEST SINGLE (PORTABLE) INDICATION: Weakness COMPARISON: None FINDINGS: LINES/TUBES:EKG leads overlie the chest. LUNGS:The lung volumes are low. Bibasilar linear opacities. PLEURA:No pleural effusion or pneumothorax. MEDIASTINUM:The cardiomediastinal silhouette appears normal in size and shape. Atherosclerotic calcifications of the thoracic aorta. BONES/SOFT TISSUES:No acute osseous injury. ABDOMEN:No free air under the diaphragm. IMPRESSION: Low lung volumes with bibasilar linear opaci ties, most likely subsegmental atelectasis. Signed by: Edy Mccall MD on 10/29/2019 3:26 PM Dictated By: EDY MCCALL MD 1526 Transcribed By: AN on 10/29/19 1526 IDENTIFICATION AND RECORDS COMMANDER Y TO: EVELYNE RIOS MD
== END 2019-11-05 20:58 | DRG 539 ==
LOC: ER 13:01 → ERHOLD 17:22 → MED/SURG2 10-30 00:15
PROVIDERS: ADMIT Internal Medicine; ATTEND Internal Medicine
PROC: 02HV33Z Insertion of Infusion Device into Superior Vena Cava, Percutaneous Approach (ICD-10-PCS; principal; 2019-11-03)
PROC: 30243N1 Transfusion of Nonautologous Red Blood Cells into Central Vein, Percutaneous Approach (ICD-10-PCS; 2019-11-04)
DX: M86.8X8 Other osteomyelitis, other site (principal); L89.154 Pressure ulcer of sacral region, stage 4; I50.33 Acute on chronic diastolic (congestive) heart failure; N17.9 Acute kidney failure, unspecified; B37.89 Other sites of candidiasis; E87.6 Hypokalemia; D64.9 Anemia, unspecified; B96.1 Klebsiella pneumoniae [K. pneumoniae] as the cause of diseases classified elsewhere; E83.42 Hypomagnesemia; E83.51 Hypocalcemia; Z86.718 Personal history of other venous thrombosis and embolism; Z74.01 Bed confinement status; G89.29 Other chronic pain; Z86.74 Personal history of sudden cardiac arrest; E88.09 Other disorders of plasma-protein metabolism, not elsewhere classified; I13.10 Hypertensive heart and chronic kidney disease without heart failure, with stage 1 through stage 4 chronic kidney disease, or unspecified chronic kidney disease; N18.3 Chronic kidney disease, stage 3 (moderate); N26.1 Atrophy of kidney (terminal); E83.39 Other disorders of phosphorus metabolism; Z11.59 Encounter for screening for other viral diseases
CPT/HCPCS: 36415; 36569; 51701; 71045; 74176; 76770; 80048; 80053; 80061; 81001; 82306; 82550; 82553; 82570; 82607; 82728; 83036; 83540; 83605; 83735; 83880; 83970; 84100; 84132; 84156; 84466; 84484; 85014; 85018; 85025; 85610; 85730; 86850; 86900; 86920; 87040; 87071; 87086; 87186; 87205; 87493; 93005; 93306; 97139; 99284; J0456; J0610; J0692; J3475; J3480; J7030; J7050; P9016; U0002

== ENCOUNTER 2019-11-14 17:53 | Inpatient (IN) | payer MEDICARE, OTHER ==
[~2019-11-14] VITALS: Ht 162.6 cm; Wt 97.5 kg
[~2019-11-14 17:53] MED LIST: ACETAMINOPHEN325 M1 PO; AMITIZA24 MCG PO; ATORVASTATIN CA20 MG PO; DOCUSATE SODIU100 MG PO; HUMALOG100 UNIT/1; LANTUS 3ML100 UNITS/ SQ; LIDOPATCH1 EACH TOP; PROTONIX20 MG PO; SIMETHICONE80 MG PO
[2019-11-14 19:13] LABS: BASOPHILS % 0.2 % (0.0-1.0); EOSINOPHILS % 0.1 % (0.0-6.0); HEMATOCRIT 28.5 % (34.2-44.1); HEMOGLOBIN 8.8 g/dL (12.0-16.0); LYMPHOCYTES # (AUTO) 0.8 (1.0-3.2); LYMPHOCYTES % 9.3 % (18.0-39.1); MEAN CORPUSCULAR HEMOGLOBIN 26.9 pg (28-32); MEAN CORPUSCULAR HGB CONC 30.9 g/dL (31-35); MEAN CORPUSCULAR VOLUME 87.2 fL (81-99); MONOCYTES # (AUTO) 0.4 (0.2-0.8); MONOCYTES % 5.1 % (4.4-11.3); NEUTROPHILS # (AUTO) 7.2 (2.1-6.9); NEUTROPHILS % 84.9 % (38.7-80.0); PLATELET COUNT 190 x10e3/uL (140-360); RED BLOOD COUNT 3.27 x10e6/uL (3.6-5.1); RED CELL DISTRIBUTION WIDTH 22.3 % (11.7-14.4)
--- NOTE | 2019-11-14 19:22 | Diagnostic Imaging Report ---
Examination: Single AP view of the chest. COMPARISON: November 04, 2019 INDICATION: Weakness altered mental status DISCUSSION: Lines/tubes: Right-sided PICC line with tip over the SVC. Lungs: Lower lung airspace consolidation, greater on the right which has progressed. Pulmonary venous congestion. Pleura: Possible small effusions. Heart and mediastinum: The heart and the mediastinum are unremarkable. Bones and soft tissues: No acute bony abnormalities. IMPRESSION: 1. Bilateral airspace consolidation, greater on the right. Signed by: Dr. Joshua Diallo M.D. on 11/14/2019 7:19 PM
[2019-11-14 19:24] LABS: CLARITY,URINE SL CLOUDY (CLEAR); COLOR,URINE YELLOW (YELLOW)
[2019-11-14 19:25] LABS: BILIRUBIN,URINE NEGATIVE (NEGATIVE); KETONES,URINE NEGATIVE (NEGATIVE); LEUKOCYTE ESTERASE ,URINE TRACE (NEGATIVE); NITRITE,URINE NEGATIVE (NEGATIVE); PROTEIN,URINE DIPSTICK 2+ (NEGATIVE); URINE UROBILINOGEN 0.2 mg/dL (0.2 - 1)
[2019-11-14 19:37] LABS: ALBUMIN 1.9 g/dL (3.5-5.0); ALBUMIN/GLOBULIN RATIO 0.5 (0.8-2.0); ANION GAP 13.1 mmol/L (8-16); CALCIUM 8.4 mg/dL (8.4-10.2); CREATININE, SERUM 1.52 mg/dL (0.57-1.11); POTASSIUM 4.1 mmol/L (3.5-5.1)
[2019-11-14 19:43] LABS: CREATINE KINASE MB 6.1 ng/mL (0-5.0)
[2019-11-14 19:47] LABS: BACTERIA,URINE MODERATE /HPF
[2019-11-14 19:48] LABS: EPITHELIAL CELLS,URINE FEW /LPF; RENAL EPITHELIAL CELLS,URINE RARE
[2019-11-14] MEDS ORDERED: CEFTRIAXONE SOD 1 GM/NS 50 ML 50 ML IV ONE (20:00)
[2019-11-14] MEDS ORDERED: DEXTROSE 5% 1,000 ML IV ONE (20:00)
[2019-11-14 20:08] LABS: B-TYPE NATRIURETIC PEPTIDE2 8075.8 pg/mL (0-100)
[2019-11-14 22:51] LABS: ANION GAP 9.7 mmol/L (8-16); CALCIUM 7.8 mg/dL (8.4-10.2); CREATININE, SERUM 1.65 mg/dL (0.57-1.11); POTASSIUM 3.7 mmol/L (3.5-5.1)
--- NOTE | 2019-11-14 23:09 | NUR ---
spoke with the nurse from [facility] pt is at baseline.
[2019-11-14] MEDS ORDERED: BACTRIM DS TAB1 EACH PO (23:12)
--- NOTE | 2019-11-14 23:12 | NUR ---
[facility] WAS CALLED TO TX PT BACK TO [facility]. ETA APPROX 1-1/2 HRS
--- NOTE | 2019-11-14 23:19 | Emergency Department Note ---
History of Present Illnes History of Present Illness Chief Complaint: General Medicine Complaints History of Present Illness This is a 79 year old female sent from the detention for possible UTI, patient nonverbal at baseline per detention . 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 Any updates have been documented here. Past Medical History Recent Fever: No Clinical Suspicion of Infectio: No New/Unexplained Change in Ment: No Past Medical History: Hypertension, Diabetes Other Medical History: ABDOMINAL ABSCESS, SEPSIS, C. DIFFICILE, pleural effusion, Chest Tube, acute renal failure, Temporary dialysis (in June), distended colon Past Surgical History: Other Surgery: Chest-tube placement Tonsillectomy Debridement of decubitus ulcer (2X) breast reduction Social History Smoking Cessation: Never Smoker Counseling Performed: No Alcohol Use: None Any Illegal Drug Use: No Physically hurt or threatened: No Other Any Pre-Existing Lines (PICC,: No Review of Systems ROS Narrative Unable to obtain ROS: Unable to obtain due to, altered mental status Physical Exam Related Data Allergies: Coded Allergies: Penicillins (Verified Allergy, Unknown, 10/29/19) Triage Vital Signs Vital Signs Date Time Temp Pulse Resp B/P (MAP) Pulse Ox O2 Delivery O2 Flow Rate FiO2 11/14/19 18:21 98.5 107 16 130/77 99 Room Air 11/14/19 19:00 2.0 Vital signs reviewed: Yes Physical Exam CONSTITUTIONAL Constitutional: Present well-developed HENT HENT: Present normocephalic, Present atraumatic, Present oropharynx clear/moist, Present nose normal HENT L/R: Present left ext ear normal, Present right ext ear normal EYES Eyes: Reports PERRL, Reports conjunctivae normal NECK Neck: Present ROM normal PULMONARY Pulmonary: Present effort normal, Present breath sounds normal CARDIOVASCULAR Cardiovascular: Present regular rhythm, Present heart sounds normal, Present capillary refill normal, Present normal rate GASTROINTESTINAL Abdominal: Present soft, Present nontender, Present bowel sounds normal GENITOURINARY Genitourinary: Present exam deferred SKIN Skin: Present warm, Present other (sacral decubitus noted) MUSCULOSKELETAL Musculoskeletal: Present ROM normal NEUROLOGICAL Neurological: Present alert PSYCHOLOGICAL Results Laboratory Result Diagram: 11/14/19 8059 11/14/19 0537 Laboratory Laboratory Tests Test 11/14/19 22:28 11/14/19 18:45 Sodium Level 144 mmol/L (136-145) 151 mmol/L (136-145) Potassium Level 3.7 mmol/L (3.5-5.1) 4.1 mmol/L (3.5-5.1) Chloride Level 122 mmol/L (98-107) 127 mmol/L (98-107) Carbon Dioxide Level 16 mmol/L (22-29) 15 mmol/L (22-29) Anion Gap 9.7 mmol/L (8-16) 13.1 mmol/L (8-16) Blood Urea Nitrogen 19 mg/dL (7-26) 20 mg/dL (7-) Creatinine 1.65 mg/dL (0.57-1.11) 1.52 mg/dL (0.57-1.11) Estimat Glomerular Filtration Rate 30 ML/MIN (60-) 33 ML/MIN (60-) BUN/Creatinine Ratio 12 (6-25) 13 (6-25) Glucose Level 295 mg/dL (74-118) 153 mg/dL (74-118) Calcium Level 7.8 mg/dL (8.4-10.2) 8.4 mg/dL (8.4-10.2) White Blood Count 8.46 x10e3/uL (4.8-10.8) Red Blood Count 3.27 x10e6/uL (3.6-5.1) Hemoglobin 8.8 g/dL (12.0-16.0) Hematocrit 28.5 % (34.2-44.1) Mean Corpuscular Volume 87.2 fL (81-99) Mean Corpuscular Hemoglobin 26.9 pg (28-32) Mean Corpuscular Hemoglobin Concent 30.9 g/dL (31-35) Red Cell Distribution Width 22.3 % (11.7-14.4) Platelet Count 190 x10e3/uL (140-360) Neutrophils (%) (Auto) 84.9 % (38.7-80.0) Lymphocytes (%) (Auto) 9.3 % (18.0-39.1) Monocytes (%) (Auto) 5.1 % (4.4-11.3) Eosinophils (%) (Auto) 0.1 % (0.0-6.0) Basophils (%) (Auto) 0.2 % (0.0-1.0) Neutrophils # (Auto) 7.2 (2.1-6.9) Lymphocytes # (Auto) 0.8 (1.0-3.2) Monocytes # (Auto) 0.4 (0.2-0.8) Eosinophils # (Auto) 0.0 (0.0-0.4) Basophils # (Auto) 0.0 (0.0-0.1) Absolute Immature Granulocyte (auto 0.03 x10e3/uL (0-0.1) Urine Color Yellow (YELLOW) Urine Clarity Sl cloudy (CLEAR) Urine pH 5.5 (5 - 7) Urine Specific Page 1.020 (1.010-1.025) Urine Protein 2+ (NEGATIVE) Urine Glucose (UA) Negative (NEGATIVE) Urine Ketones Negative (NEGATIVE) Urine Blood Moderate (NEGATIVE) Urine Nitrite Negative (NEGATIVE) Urine Bilirubin Negative (NEGATIVE) Urine Urobilinogen 0.2 mg/dL (0.2 - 1) Urine Leukocyte Esterase Trace (NEGATIVE) Urine RBC 6-10 /HPF (0-5) Urine WBC 6-10 /HPF (0-5) Urine Epithelial Cells Few /LPF (NONE) Urine Renal Epithelial Cells Rare (NONE) Urine Bacteria Moderate /HPF (NONE) Urine Hyaline Casts 2-5 (0-1) Urine Fine Granular Casts 1-5 (0) Total Bilirubin 0.5 mg/dL (0.2-1.2) Aspartate Amino Transf (AST/SGOT) 24 IU/L (5-34) Alanine Aminotransferase (ALT/SGPT) 19 IU/L (0-55) Alkaline Phosphatase 100 IU/L (40-150) Ammonia 96 UG/DL (31-123) Creatine Kinase 15 IU/L (29-168) Creatine Kinase MB 6.10 ng/mL (0-5.0) Troponin I 0.062 ng/mL (0-0.300) B-Type Natriuretic Peptide 8075.8 pg/mL (0-100) Total Protein 5.6 g/dL (6.5-8.1) Albumin 1.9 g/dL (3.5-5.0) Globulin 3.7 g/dL (2.3-3.5) Albumin/Globulin Ratio 0.5 (0.8-2.0) Lab results reviewed: Yes Laboratory comments Laboratory Tests Test 11/14/19 22:28 11/14/19 18:45 Sodium Level 144 mmol/L (136-145) 151 mmol/L (136-145) Potassium Level 3.7 mmol/L (3.5-5.1) 4.1 mmol/L (3.5-5.1) Chloride Level 122 mmol/L (98-107) 127 mmol/L (98-107) Carbon Dioxide Level 16 mmol/L (22-29) 15 mmol/L (22-29) Anion Gap 9.7 mmol/L (8-16) 13.1 mmol/L (8-16) Blood Urea Nitrogen 19 mg/dL (7-26) 20 mg/dL (7-26) Creatinine 1.65 mg/dL (0.57-1.11) 1.52 mg/dL (0.57-1.11) Estimat Glomerular Filtration Rate 30 ML/MIN (60-) 33 ML/MIN (60-) BUN/Creatinine Ratio 12 (6-25) 13 (6-25) Glucose Level 295 mg/dL (74-118) 153 mg/dL (74-118) Calcium Level 7.8 mg/dL (8.4-10.2) 8.4 mg/dL (8.4-10.2) White Blood Count 8.46 x10e3/uL (4.8-10.8) Red Blood Count 3.27 x10e6/uL (3.6-5.1) Hemoglobin 8.8 g/dL (12.0-16.0) Hematocrit 28.5 % (34.2-44.1) Mean Corpuscular Volume 87.2 fL (81-99) Mean Corpuscular Hemoglobin 26.9 pg (28-32) Mean Corpuscular Hemoglobin Concent 30.9 g/dL (31-35) Red Cell Distribution Width 22.3 % (11.7-14.4) Platelet Count 190 x10e3/uL (140-360) Neutrophils (%) (Auto) 84.9 % (38.7-80.0) Lymphocytes (%) (Auto) 9.3 % (18.0-39.1) Monocytes (%) (Auto) 5.1 % (4.4-11.3) Eosinophils (%) (Auto) 0.1 % (0.0-6.0) Basophils (%) (Auto) 0.2 % (0.0-1.0) Neutrophils # (Auto) 7.2 (2.1-6.9) Lymphocytes # (Auto) 0.8 (1.0-3.2) Monocytes # (Auto) 0.4 (0.2-0.8) Eosinophils # (Auto) 0.0 (0.0-0.4) Basophils # (Auto) 0.0 (0.0-0.1) Absolute Immature Granulocyte (auto 0.03 x10e3/uL (0-0.1) Urine Color Yellow (YELLOW) Urine Clarity Sl cloudy (CLEAR) Urine pH 5.5 (5 - 7) Urine Specific Page 1.020 (1.010-1.025) Urine Protein 2+ (NEGATIVE) Urine Glucose (UA) Negative (NEGATIVE) Urine Ketones Negative (NEGATIVE) Urine Blood Moderate (NEGATIVE) Urine Nitrite Negative (NEGATIVE) Urine Bilirubin Negative (NEGATIVE) Urine Urobilinogen 0.2 mg/dL (0.2 - 1) Urine Leukocyte Esterase Trace (NEGATIVE) Urine RBC 6-10 /HPF (0-5) Urine WBC 6-10 /HPF (0-5) Urine Epithelial Cells Few /LPF (NONE) Urine Renal Epithelial Cells Rare (NONE) Urine Bacteria Moderate /HPF (NONE) Urine Hyaline Casts 2-5 (0-1) Urine Fine Granular Casts 1-5 (0) Total Bilirubin 0.5 mg/dL (0.2-1.2) Aspartate Amino Transf (AST/SGOT) 24 IU/L (5-34) Alanine Aminotransferase (ALT/SGPT) 19 IU/L (0-55) Alkaline Phosphatase 100 IU/L (40-150) Ammonia 96 UG/DL (31-123) Creatine Kinase 15 IU/L (29-168) Creatine Kinase MB 6.10 ng/mL (0-5.0) Troponin I 0.062 ng/mL (0-0.300) B-Type Natriuretic Peptide 8075.8 pg/mL (0-100) Total Protein 5.6 g/dL (6.5-8.1) Albumin 1.9 g/dL (3.5-5.0) Globulin 3.7 g/dL (2.3-3.5) Albumin/Globulin Ratio 0.5 (0.8-2.0) Imaging Imaging results reviewed: Yes Impressions IMPRESSION: 1. Bilateral airspace consolidation, greater on the right. Assessment & Plan Medical Decision Making MDM 79-year-old female sent to the ED from the detention for question UTI. Patient with a recent hospitalization to [facility], all records are reviewed patient noted to have sepsis secondary to sacral decubiti in the past. Patient with extensive complicated medical history including an MN, abdominal abscess as well as sepsis. On arrival to the ED patient is nonverbal, lab work does show mild hypernatremia which is treated with D5W. Spoke to Dr. Palacios about concerns but at this time we both feel patient can be managed in the detention. Patient has a Cortes catheter in place and will likely have chronic UTIs as a result of the preceding. Antibiotics given the ED and patient discharged back to the detention on them as well. Patient likely needs more closer care at the detention and the form of [place], decubiti care/wound care and nutrition. No indicati ons for hospitalization at this time. Assessment & Plan Final Impression: (1) UTI (urinary tract infection) (2) Sacral decubitus ulcer, stage IV Depart Disposition: HOME, SELF-CARE Last Vital Signs Date Time Temp Pulse Resp B/P (MAP) Pulse Ox O2 Delivery O2 Flow Rate FiO2 11/14/19 22:30 92 17 128/74 99 Nasal Cannula 2.0 11/14/19 18:21 98.5 Home Meds Active Scripts Sulfamethoxazole/Trimethoprim (BACTRIM DS TABLET) 1 Each Tablet, 1 TAB PO BID, #20 TAB 0 Refills Prov:RODNEYRBRE, DO 11/14/19 Reported Medications Lidocaine/Menthol (LIDOPATCH) 1 Each Adh..patch, 1 PATCH TOP DAILY, PATCH 10/30/19 Insulin Lispro (HUMALOG) 100 Unit/1 Ml Cartridge 10/30/19 Insulin Glargine (LANTUS 3ML PEN) 100 Units/1 Ml Inj, 2 UNITS SQ HS 10/30/19 Lubiprostone (AMITIZA) 24 Mcg Capsule, 24 MCG PO BIDWM, #60 CAP 10/30/19 Simethicone (SIMETHICONE) 80 Mg Chew, 80 MG PO Q12H, #30 TAB 10/30/19 Docusate Sodium (DOCUSATE SODIUM) 100 Mg Capsule, 100 MG PO Q12H, CAP 10/30/19 Pantoprazole Sodium (PROTONIX) 20 Mg Tablet.dr, 40 MG PO DAILY, #30 TAB 10/30/19 Acetaminophen (ACETAMINOPHEN) 325 Mg Tablet, 650 MG PO Q6H PRN for pain, TAB 10/30/19 Atorvastatin Calcium (ATORVASTATIN CALCIUM) 20 Mg Tablet, 20 MG PO HS, #30 TAB 10/30/19 Medications in the ED Dextrose 1,000 ml @ 0 mls/hr Q0M ONCE IV Last administered on 11/14/19at 20:12; Admin Dose 999 MLS/HR; Start 11/14/19 at 20:00; Stop 11/14/19 at 20:01; Status DC Ceftriaxone Sodium 50 ml @ 100 mls/hr ONCE ONCE IV Last administered on at 20:00; Admin Dose 100 MLS/HR; Start 11/14/19 at 20:00; Stop 11/14/19 at 21:46; Status DC BRE ROGERS, Nov 14, 2019 23:19
--- NOTE | 2019-11-14 23:30 | NUR ---
REPORT RECIEVED FROM ANNA HUSAIN.
--- NOTE | 2019-11-14 23:36 | NUR ---
DC CANCELLED. Addendum: 11/14/19 at 2336 by CARMEL REPORT GIVEN TO RODRIGUE HEALY
[2019-11-15] VITALS (8 sets, daily range): BP systolic 109–140; BP diastolic 64–88
[2019-11-15] MEDS ORDERED: FUROSEMIDE INJ 10 MG/ML 4 ML VIAL IV ONE (00:45)
--- NOTE | 2019-11-15 00:57 | NUR ---
THIS NURSE AND URIEL RN SPOKE WITH CAMERON HUSAIN-FROM [facility]. CAMERON HUSAIN IS THE NURSE THAT TAKES CARE OF MRS. GUILLORY ON A REGULAR BASIS DURING HER STAY AT [facility] DURING NIGHT SHIFTS. CAMERON HUSAIN DENIES GI BLEEDING, CAMERON HUSAIN STATES PATIENT WAS SENT OVER DUE TO INCREASED ALTERED MENTAL STATUS/NEUROLOGICAL FUNCTION. ALL FINDINGS WERE DISCUSSED IN FULL AND DR ROGERS WAS INFORMED WELL.
--- NOTE | 2019-11-15 01:05 | Diagnostic Imaging Report ---
History:Altered mental status, weakness Comparison studies: None Technique: Axial images were obtained from the skull base to the vertex. Coronal and sagittal images reconstructed from the axial data. Dose modulation, iterative reconstruction, and/or weight based adjustment of the mA/kV was utilized to reduce the radiation dose to as low as reasonably achievable. Intravenous contrast: None Findings: Scalp/skull: No abnormalities. Extra-axial spaces: No masses. No fluid collections. Brain sulci: Moderately prominent. Ventricles: Moderate compensatory dilatation. No hydrocephalus. Parenchyma: A focal chronic nonspecific insult is centered in the left deep frontal [place] radiata and centrum semiovale white matter. An old lacunar insult is located in the left anterior subinsular region. Subtle hypodensities in the supratentorial white matter are small vessel ischemic changes. No masses, hemorrhage, acute or chronic cortical vascular insults. Sellar/suprasellar region: No abnormalities. Craniocervical junction: Patent foramen magnum. No Chiari one malformation. Incidental findings: Nonobstructive retention cyst in the left sphenoid sinus. Subtle atherosclerotic calcifications in the carotid siphons and left vertebral artery Impression: No acute intracranial abnormalities. Chronic findings: 1. Moderate generalized volume loss. 2. Mild supratentorial white matter small vessel ischemic changes. 3. Nonspecific focal infiltrate (left deep frontal white matter and left subinsular region). Signed by: Dr. Rafa Segovia M.D. on 11/15/2019 1:01 AM
--- NOTE | 2019-11-15 01:32 | Diagnostic Imaging Report ---
EXAM: CT Abdomen and Pelvis WITHOUT contrast INDICATION: Abdominal pain. Wound. GI bleed. COMPARISON: None. TECHNIQUE: Abdomen and pelvis were scanned utilizing a multidetector helical scanner from the lung base to the pubic symphysis without administration of IV contrast. Absence of intravenous contrast decreases sensitivity for detection of focal lesions and vascular pathology. Coronal and sagittal reformations were obtained. Routine protocol was performed. IV CONTRAST: None. ORAL CONTRAST: Water RADIATION DOSE: Total DLP: 817.39 mGy*cm Estimated effective dose: (DLP x 0.015 x size factor) mSv COMPLICATIONS: None FINDINGS: Examination somewhat limited due to artifact from arms along patient's torso in the upper abdomen. LINES and TUBES: None. LOWER THORAX: Bilateral small pleural effusions, right greater than left increased since the prior examination. Bilateral lower lobe and lingular consolidation. HEPATOBILIARY: The liver is diffuse hypodense compared to the spleen, consistent with diffuse hepatic diffuse hepatic steatosis. No focal hepatic lesions. No biliary ductal dilation. GALLBLADDER: Dense gallbladder sludge against observed. Surgical clips/metallic densities again observed in the carline hepatis region. No wall thickening. SPLEEN: No splenomegaly. PANCREAS: No focal masses or ductal dilatation. Fatty infiltration of the pancreatic head. ADRENALS: No adrenal nodules KIDNEYS/URETERS: No hydronephrosis. 2.3 cm cyst exophytic of the posterior interpolar region of the left kidney. No stones. GI TRACT: No abnormal distention, wall thickening, or evidence of bowel obstruction. There is a large volume of stool within the rectosigmoid concern for fecal impaction. Appendix is normal. Ill-defined oval low-attenuation in the posterior lower rectum extending to the inner canal best seen on coronal image 83 is now well characterized with this examination; recommend correlation with physical examination. PELVIC ORGANS/BLADDER: Cortes catheter within the decompressed urinary bladder. Small calcified uterine leiomyomata again noted. LYMPH NODES: No lymphadenopathy. VESSELS: Unremarkable. PERITONEUM / RETROPERITONEUM: No free air or fluid. BONES: There are degenerative changes in the lumbar spine. SOFT TISSUES: Unremarkable. IMPRESSION: 1. Large volume of stool within the rectosigmoid suggesting fecal impaction. 2. Ill-defined oval low-attenuation in the posterior lower rectum extending to the anal canal is not well characterized with this examination; recommend correlation with physical examination or direct visualization. Signed by: Markus FuentesD. on 11/15/2019 1:28 AM
--- NOTE | 2019-11-15 03:00 | NUR ---
RECEIVED PATIENT FROM THE EMERGENCY ROOM. PATIENT IS ON O2 AT 4 L/MIN. OPEN EYES SPONTANEOUSLY. LOCALIZES TO PAIN. PATIENT IS NON VERBAL. REED IN PLACED. TRANSFERRED TO BED. PATIENT HAVE A BOWEL MOVEMENT. CLEANED AND DIAPER CHANGED. DECUBITUS ULCERS NOTED TO SCARUM. ALLEVYN FOAM CHANGED. CALL LIGHT WITHIN REACHED. BED ALARM ON.
[2019-11-15] MEDS ORDERED: XIFAXAN550 MG PO (05:10)
[2019-11-15] MEDS ORDERED: LACTULOSE20 GM/30 M PO (05:11)
[2019-11-15] MEDS ORDERED: ELIQUIS5 M1 (05:12)
[2019-11-15] MEDS ORDERED: ZOFRAN4 MG PO (05:18)
[2019-11-15] MEDS ORDERED: CLONIDINE HCL0.1 MG PO (06:30)
[2019-11-15] MEDS ORDERED: LOPERAMIDE2 MG PO (06:31)
[2019-11-15] MEDS ORDERED: MILK OF MA2400 MG/10 PO (06:32)
--- NOTE | 2019-11-15 07:00 | NUR ---
RECEIVED PATIENT RESTING IN BED NO S/S OF DISTRESS. BED LOW, WHEELS LOCKED, SIDE RAILS X2. CALL LIGHT IN REACH WILL CONTINUE TO MONITOR PATIENT.
[2019-11-15] MEDS ORDERED: DEXTROSE 50% SYRINGE 50 ML IV PRN (10:30)
[2019-11-15] MEDS ORDERED: CEFEPIME HCL 1 GM VIAL IV SCH (10:30)
[2019-11-15 10:34] LABS: BASOPHILS % 0.1 % (0.0-1.0); EOSINOPHILS % 0.1 % (0.0-6.0); HEMATOCRIT 27.6 % (34.2-44.1); HEMOGLOBIN 8.6 g/dL (12.0-16.0); LYMPHOCYTES # (AUTO) 0.7 (1.0-3.2); LYMPHOCYTES % 8.7 % (18.0-39.1); MEAN CORPUSCULAR HGB CONC 31.2 g/dL (31-35); MEAN CORPUSCULAR VOLUME 86.5 fL (81-99); MONOCYTES # (AUTO) 0.4 (0.2-0.8); MONOCYTES % 4.7 % (4.4-11.3); NEUTROPHILS # (AUTO) 7.2 (2.1-6.9); NEUTROPHILS % 85.9 % (38.7-80.0); PLATELET COUNT 167 x10e3/uL (140-360); RED BLOOD COUNT 3.19 x10e6/uL (3.6-5.1); RED CELL DISTRIBUTION WIDTH 22.5 % (11.7-14.4)
[2019-11-15 10:52] LABS: ALBUMIN 1.8 g/dL (3.5-5.0); ALBUMIN/GLOBULIN RATIO 0.5 (0.8-2.0); ANION GAP 11.5 mmol/L (8-16); CALCIUM 8.1 mg/dL (8.4-10.2); CREATININE, SERUM 1.53 mg/dL (0.57-1.11); POTASSIUM 3.5 mmol/L (3.5-5.1)
--- NOTE | 2019-11-15 10:55 | NUR ---
PATIENT HAD LARGE BROWN LIQUID STOOL. PATIENT CLEANED AND REPOSITIONED. CALL LIGHT IN REACH. BED ALARM ON. WILL CONTINUE TO MONITOR PATIENT.
[2019-11-15] MEDS ORDERED: CEFEPIME 1GM/NS 0.9% 50 ML 50 ML IV SCH ×3 (11:00→18:00)
[2019-11-15 11:20] LABS: CREATINE KINASE MB 7.5 ng/mL (0-5.0)
[2019-11-15] MEDS: INSULIN LISPRO 100 UNIT/1 ML 3ML VIAL SQ SCH ×3 (11:30→20:51)
[2019-11-15] MEDS ORDERED: SODIUM CHLORIDE 0.9% 250ML 250 ML ONE (11:47)
--- NOTE | 2019-11-15 12:40 | NUR ---
data center consultant for Dr. Lazar rounding on patient. New wound care orders. Wound care orders implemented. Planning for wound VAC.
--- NOTE | 2019-11-15 13:04 | Consultation ---
DATE OF CONSULTATION: Wound Care Consultation CHIEF COMPLAINT: Wound care consultation was called for sacral wound. Thank you Dr. Palacios for the consult. HISTORY OF PRESENT ILLNESS: She is an 79-year-old female with a history of abdominal abscess, sepsis, cardiac arrest, stage IV sacral decubiti, and C. diff. Apparently was sent from the [facility] for altered mental status and wound care consultation was called for stage IV sacral decubiti. REVIEW OF SYSTEMS: Very limited as the patient is nonverbal, not talking. Most of the history I got from the chart. PAST MEDICAL HISTORY: Sepsis, septic shock, cardiac arrest, C. diff, and peptic ulcer disease. PAST SURGICAL HISTORY: Not known. ALLERGIES: NONE. FAMILY HISTORY: Unknown. PHYSICAL EXAMINATION: GENERAL: Elderly female. HEENT: PERRLA. NECK: Supple. CHEST: She is breathing fast. Slightly tachypneic, using abdominal wall. DOOR TRIMMER: She just opens her eyes, goes back to sleep. Altered, confused, and sleepy. SKIN: The patient has stage IV sacral wound, 100% pink and looks clean, undermining throughout and does not look infected. Bone is not exposed or palpable. LABORATORY DATA: From here is reviewed. ASSESSMENT AND PLAN: Stage IV sacral wound, looks clean. I will pack it with Aquacel AG. The patient needs an air mattress and we can start the wound VAC from Sunday at 1:25, and after we will follow the patient from tomorrow. MD FELY Whaley/DARRELL /[id number]
[2019-11-15] MEDS: RIFAXIMIN 550 MG TABLET PO SCH (13:45)
[2019-11-15] MEDS ORDERED: DEXTROSE 5%/0.45% SOD CHL 1,000 ML IV ONE (13:45)
[2019-11-15] MEDS ORDERED: ACETAMINOPHEN 325 MG TAB PO PRN (13:45)
[2019-11-15] MEDS ORDERED: VANCOMYCIN 1GM/NS 250 ML 250 ML IV SCH (16:30)
[2019-11-15] MEDS ORDERED: VANCOMYCIN 750MG/NS 150ML IVPB 150 ML IV SCH (16:45)
[2019-11-15] MEDS ORDERED: APIXABAN 5 MG TABLET PO SCH (17:00)
[2019-11-15] MEDS: LACTULOSE SYRUP 20 GM/30 ML UDC PO SCH (17:09)
--- NOTE | 2019-11-15 17:22 | NUR ---
LACTULOSE ENEMA GIVEN PER DR. MARQUEZ VERBAL ORDER.
--- NOTE | 2019-11-15 18:20 | Diagnostic Imaging Report ---
Examination: Single AP view of the chest. COMPARISON: Chest radiograph 11-14-2019. INDICATION: Shortness of breath. DISCUSSION: Lines/tubes: Right-sided PICC line with tip over the SVC. Lungs: Persistent bilateral lower lung zone predominant patchy consolidation. Pulmonary venous congestion. Pleura: Small right and trace left pleural effusions. Heart and mediastinum: The heart and the mediastinum are unremarkable. Bones and soft tissues: No acute bony abnormalities. Degenerative changes in the thoracic spine. IMPRESSION: Bilateral lower lung zone patchy consolidation may represent pneumonia or atelectasis in the appropriate clinical setting. Possible superimposed pulmonary edema. Small right and trace left pleural effusions. Signed by: Dr. Adrián Adorno MD on 11/15/2019 6:17 PM
[2019-11-15 18:33] LABS: CREATINE KINASE MB 8.8 ng/mL (0-5.0)
--- NOTE | 2019-11-15 18:55 | Consultation ---
DATE OF CONSULTATION: REASON FOR CONSULTATION: Decubitus ulcer. HISTORY OF PRESENT ILLNESS: The patient is an 79-year-old female, who has a history of multiple abdominal abscesses, sepsis, cardiac arrest, decubitus ulcer, C. difficile colitis. She was in [facility]. She was sent here for altered mental status. The patient does not really provide any meaningful information. History was taken mainly from the chart. LABORATORY DATA: White count is 8.3, hemoglobin of 8.6. Sodium 149, potassium 3.5, creatinine 1.53. MEDICATIONS: The patient is currently on vancomycin, rifaximin, as well as cefepime. PAST MEDICAL HISTORY: As above. PAST SURGICAL HISTORY: As above. ALLERGIES: NKA. SOCIAL HISTORY: Could not be obtained. REVIEW OF SYSTEMS: Could not be obtained. PHYSICAL EXAMINATION: GENERAL: Currently alert. VITAL SIGNS: Stable. Currently afebrile. HEENT: Normocephalic. Not icteric. CHEST: A few crackles. COR: S1, S2. No murmurs. ABDOMEN: Soft. . EXTREMITIES: No edema. SKIN: She did have a stage IV decubitus ulcer, which was in the sacral area. IMPRESSION: 1. Decubitus ulcer stage 4. 2. Chronic kidney disease . PLAN: Agree with local care. We will put on vancomycin and cefepime, although adjust with her kidney function. We will do vancomycin 1 g q.24 hours and cefepime 1 g q.24 hours. We will discuss with Wound Care for surgical debridement and deep wound cultures. We will follow. MD TERRANCE Christiansen/DARRELL /[id number]
--- NOTE | 2019-11-15 19:50 | History and Physical ---
CHIEF COMPLAINT: Altered mental status. HISTORY OF PRESENT ILLNESS: Information being obtained from the nursing staff, family, and ED note as we have very limited information on this patient. The patient is not alert, awake, and oriented on examination. This is an 79-year-old female, who was just recently discharged from our facility, presents from [facility] after she has been having altered mental status, ongoing for the last 3 days. There are no reports of any cough, congestion, or any fever. There were no reports of any infection. According to the records, the patient was well up until about 3 days ago when she really got very confused, nonverbal. The patient was seen and evaluated at bedside on the medical floor. She is currently very confused. She is not responsive on examination. REVIEW OF SYSTEMS: Pertinent positive, altered mental status. The rest of 14-point review of systems, I am not able to obtain due to the patient's underlying confusion. ALLERGIES: TO PENICILLIN. HOME MEDICATIONS: 1. Acetaminophen. 2. Clonidine. 3. Milk of magnesia. 4. Simethicone. 5. Bactrim. 6. Loperamide. 7. Aldosterone. 8. Apixaban. 9. Lactulose. 10. Rifaximin. PAST MEDICAL HISTORY: She is bed-bound, generalized weakness, has a history of sepsis in the past, renal failure, temporary dialysis back in June, hypertension, diabetes. PAST SURGICAL HISTORY: She has a history of a , chest tube placements in the past, multiple decubitus wound infections, tonsillectomy, breast reduction. FAMILY HISTORY: Unable to obtain. SOCIAL HISTORY: Reports state no drugs, no alcohol. Does not smoke. She has good family support. LABORATORY DATA: Labs show white count 8.3, hemoglobin 8.6, hematocrit 27.6, platelets of 167. Chemistry, sodium 149, potassium 3.5, chloride 125, bicarbonate 16, anion gap of 11. BUN is 20, creatinine is 1.53, glucose is 171, calcium is 8.1. LFTs within normal range. Troponins were normal 0.067. BNP was 8075. Total protein 5.3, albumin is 1.8. Urinalysis concerning for underlying UTI. Serology coronavirus pending. Microbiology, blood and urine cultures are pending. IMAGING STUDIES: Chest x-ray, bilateral airspace consolidation, greater on the right. Abdominal CT abdomen and pelvis shows some large volume stool within the rectosigmoid suggesting fecal impaction. Ill-defined characterized in this examination. CT brain shows no acute intracranial abnormalities. There are some old chronic findings. PHYSICAL EXAMINATION: VITAL SIGNS: Temperature is 98.1, pulse 88, respiratory rate 26, blood pressure is 112/70, pulse ox is 97% on 4 L nasal cannula. GENERAL: She is confused, not speaking at all. PULMONARY: She is breathing on her own. She is doing well. She to auscultation bilaterally. No wheezing, rales, or rhonchi. CARDIOVASCULAR: Positive S1 and S2. No murmurs, rubs, or gallops. GI: Abdomen is soft, nondistended, nontender to palpation. Bowel sounds present. MUSCULOSKELETAL: Unable to assess. NEUROLOGIC: Unable to assess. SKIN: Intact. Warm to touch. Good cap refill. EXTREMITIES: No edema appreciated. IMPRESSION: 1. Metabolic encephalopathy, presumed to be from underlying urinary tract infection. 2. Urinary tract infection. 3. Hypernatremia, secondary to dehydration. 4. Acute kidney injury. 5. Concerns for aspiration pneumonia. 6. History of elevated ammonia level, secondary to liver cirrhosis. PLAN: At this time, CT brain was found to be negative. We will order for an MRI of the brain, have Neurology consultation as well to evaluate. The patient also has a sacral wound, in which I did get Wound Care consulted. We will go ahead and consult with ID as well and provide local wound care. The patient has a history of cardiac arrest in the past. I will go ahead and get the rail director under [facility], Dr. Scott to evaluate the patient. In fact, she evaluated the patient back in October of this year. We are going to get an MRI of the brain, carotid ultrasound. Trend troponins. Change IV fluids to half-normal saline due to hypernatremia. Get a chest x-ray in the morning. Give lactulose enema. She has a history of elevated ammonia level leading to her altered mental status. We are going to hold Eliquis for now until MRI of the brain is back in negative. Get PT/OT evaluation. Consultants involved Wound Care, ID, Neurology, and Cardiology. Otherwise, it seems after talking to the nursing staff that the patient was here several weeks ago and she was more alert, awake, and able to function and have a good conversation, but baseline ambulation is very poor. At this time, she is very obtunded on examination, but she is breathing well and her vitals are stable. Etiology seems to be from underlying UTI. Discussed plan of care with nursing staff and family. MD LEV Garcia/DARRELL /[id number]
[2019-11-16] VITALS (8 sets, daily range): BP systolic 105–140; BP diastolic 52–71
[2019-11-16] MEDS: RIFAXIMIN 550 MG TABLET PO SCH ×2 (00:38→13:45)
[2019-11-16] MEDS: LACTULOSE SYRUP 20 GM/30 ML UDC PO SCH ×3 (04:40→12:00)
[2019-11-16] MEDS: INSULIN LISPRO 100 UNIT/1 ML 3ML VIAL SQ SCH ×4 (07:30→21:45)
--- NOTE | 2019-11-16 07:50 | NUR ---
Paged to notify of consult
--- NOTE | 2019-11-16 10:00 | NUR ---
aware of consult
--- NOTE | 2019-11-16 12:36 | Consultation ---
DATE OF CONSULTATION: Neurology Consultation REASON FOR CONSULTATION: Severe diffuse encephalopathy and delirium. HISTORY OF PRESENT ILLNESS: Mrs. Lebron is an 79-year-old female with history of multiple abdominal abscesses, sepsis, cardiac arrest, decubital ulcer, C diff and was in [facility], recovering from a recent hospitalization where she developed increasing altered mental status, encephalopathy, and delirium. She is not able to give much information given her clinical status. I reviewed the chart to get medical information. According to the records, she was having increasing confusion for the last three days with increasing difficulty with arousal and responsivity. There is no cough, fever, or congestion, but she was transferred here for further evaluation and care because she is not able to pursue rehabilitation. REVIEW OF SYSTEMS: The patient is not able to provide due to cognitive status and clinical status. HOME MEDICATIONS: She is on apixaban as well as clonidine, Bactrim, loperamide, aldosterone, and lactulose. MEDICAL HISTORY: She is bed bound, diffuse weakness, says persist in the past, renal failure and transient dialysis in the past. SOCIAL HISTORY: No drugs, tobacco, or alcohol. LABORATORY DATA: White blood cell count is just 8.3, hemoglobin is 8.6, Chem panel is relatively reassuring with a mild increase in creatinine 1.52. UA appears grossly abnormal. COVID was pending. PHYSICAL EXAMINATION: GENERAL: She does open her eyes to verbal and physical stimulation. She looks at the examiner. Verbalizes her mouth just one or two words, but is very lethargic, does not concentrate and not able to focus and maintain alertness. HEENT: Extraocular muscles intact. Doll's eyes. NECK: There is no nuchal rigidity. Her neck is supple. Her trachea is midline. CARDIOVASCULAR: Regular rate and rhythm. PULMONARY: Clear to auscultation. ABDOMEN: Distended. NEUROLOGIC: She does withdraw from noxious stimulation. Upper extremities at least 3/5, lower extremities 2/5. Reflexes are diminished. Gross sensory response to all four extremities seems symmetric. ASSESSMENT AND PLAN: I am seeing the patient for severe diffuse encephalopathy and delirium, likely infectious encephalopathy. We will get an EEG and an MRI of the brain to rule out any structural focal dysfunction subclinical status, but I would initiate antiepileptics at this point. MD PIETER GARCIA/REJIL /[id number]
--- NOTE | 2019-11-16 13:45 | NUR ---
. The patient also has a sacral wound, in which I did get Wound Care consulted. well and provide local wound care. The patient has a history of cardiac arrest in the past. I will go ahead and get the inspector and hand packager under [facility], Dr. Scott to evaluate the patient. In fact, she evaluated the patient back in October of this year. We are going to get an MRI of the brain, carotid ultrasound. Trend troponins. Change IV fluids to half-normal saline due to hypernatremia. Get a chest x-ray in the morning. Give lactulose enema. She has a history of elevated ammonia level leading to her altered mental status. We are going to hold Eliquis for now until MRI of the brain is back in negative. Get PT/OT evaluation. Neurology, and Cardiology. Otherwise, it seems after talking to the nursing staff that the patient was here several weeks ago and she was more alert, awake, and able to function and have a good conversation, but baseline ambulation is very poor. At this time, she is very obtunded on examination, but she is breathing well and her vitals are stable. Etiology seems to be from underlying UTI. Discussed plan of care with nursing staff and family. 1. Decubitus ulcer stage 4. 2. Chronic kidney disease [id number]
--- NOTE | 2019-11-16 14:13 | Consultation ---
DATE OF CONSULTATION: Cardiology Consultation REASON FOR CONSULTATION: Cardiovascular disease. HISTORY OF PRESENT ILLNESS: This is an 79-year-old woman who has a history of cardiac arrest, pleural effusions, sacral decubitus ulcers, diastolic congestive heart failure, and chronic kidney disease, who presented from the assisted with altered mental status and a urinary tract infection. I cannot obtain review of systems nor can the patient relay the exact details of her medical history or presenting symptoms as she has baseline altered mental status. She was previously in [place] and was found to have multiple abdominal abscesses, which were surgically drained and evidently had a cardiac arrest with a temporary placement on dialysis. She was transferred to long-term acute care, developed sacral ulcers and C diff colitis. Family members brought her here from [place] and she was previously seen this month. REVIEW OF SYSTEMS: Unable to obtain. PAST MEDICAL HISTORY: As stated above. PAST SURGICAL HISTORY: As stated above. PAST FAMILY HISTORY: Noncontributory. ALLERGIES: PENICILLIN. MEDICATIONS: See medication reconciliation form. SOCIAL: No illicit drug, alcohol, or tobacco use. PHYSICAL EXAMINATION: VITAL SIGNS: Temperature is 98.3, heart rate 78, respirations are 20, blood pressure is 108/53, and ox saturation is 100% on 5 L nasal cannula. GENERAL: She is a chronically ill-appearing woman, lying comfortably in bed, no apparent distress. CARDIOVASCULAR: Regular rate and rhythm. LUNGS: Clear to auscultation. ABDOMEN: Soft, nontender, nondistended. EXTREMITIES: Trace edema. NEUROLOGIC: The patient is lethargic, moving extremities. MEDICATIONS: Reviewed. LABORATORY DATA: Reviewed. Hemoglobin 8.6. Troponins are negative x2. IMPRESSION: 1. Encephalopathy likely metabolic. 2. Urinary tract infection. 3. Acute on chronic kidney disease. 4. History of liver cirrhosis. RECOMMENDATIONS: The patient has no ongoing cardiac conditions. She is stable from a cardiovascular standpoint. No further workup is required at this point in time. Defer treatment of encephalopathy and urinary tract infection to primary team. Please call us back with any further questions. Regulo Betancourt DO BM/MODL /[id number]
[2019-11-16] MEDS: LACTULOSE SYRUP 20 GM/30 ML UDC RC SCH ×2 (15:41→21:45)
--- NOTE | 2019-11-16 15:41 | NUR ---
Lactulose enema given as ordered
--- NOTE | 2019-11-16 16:48 | Progress Note ---
DATE: SUBJECTIVE: Ms. Soto is in the hospital, but she is confused. No new problem. PHYSICAL EXAMINATION: VITAL SIGNS: Stable. Currently, afebrile. GENERAL: Currently, alert, noncommunicative. Confused. HEENT: She is not icteric. NECK: Supple. CHEST: Clear. HEART: S1, S2. ABDOMEN: Soft. IMPRESSION: Decubitus ulcer. Continue as ordered. Chronic kidney disease, dementia. Continue antibiotic as ordered. Chronic kidney disease. We will follow levels. Continue supportive care as ordered. MD TERRANCE Christiansen/MODL /[id number]
[2019-11-16] MEDS ORDERED: SODIUM CHLORIDE 0.9% 250ML 250 ML ONE (16:51)
[2019-11-16] MEDS: BUMETANIDE INJ 0.25MG/ML 4ML VIAL IV SCH ×2 (17:05→22:00)
[2019-11-16] MEDS: DAPTOMYCIN 500mg 10ML 500 MG in SODIUM CHLORIDE 0.9% 100 ML IV SCH (17:05)
--- NOTE | 2019-11-16 18:54 | NUR ---
Report given to oncoming nurse of patient's status. No s/s of acute distress noted. Side rails upx, call light within reach, bed alarm on.
--- NOTE | 2019-11-16 19:34 | Progress Note ---
DATE: 11/16/2019 Medicine Progress Note SUBJECTIVE: The patient is still very confused and obtunded on examination. No overnight events. Still at baseline. I had a long conversation with the patient's granddaughter, who is the medical [id number] and will discuss this in the plan below. PHYSICAL EXAMINATION: VITAL SIGNS: Temperature is 97.7, pulse 70, respiratory rate 21, blood pressure 109/52, pulse ox 99%. She is on nasal cannula. LABORATORY FINDINGS: Show white count 8.3, hemoglobin 8.6, hematocrit 27.6, platelets of 167,000. Chemistry; sodium 149, potassium 3.5, chloride 125, bicarbonate 16, anion gap of 11, BUN is 20, creatinine is 1.53. MICROBIOLOGY: Blood and urine cultures shows no growth to date. IMAGING STUDIES: Chest x-ray shows bilateral lower lung zone patchy consolidation and may represent pneumonia or atelectasis. PHYSICAL EXAMINATION: GENERAL: She is confused. She is not responsive. CARDIOVASCULAR: Positive S1 and S2. No murmurs, rubs, or gallops. ABDOMEN: Soft, nondistended, and nontender to palpation. Bowel sounds present. PULMONARY: Clear to auscultation bilaterally. No wheezing, rales, or rhonchi. No crackles appreciated. MUSCULOSKELETAL: Unable to assess. She is very confused, not cooperative, obtunded. NEUROLOGICAL: Not responsive, but just kind of moves her eyes towards you. SKIN: Intact. Warm to touch. Good cap refill. IMPRESSION: 1. Metabolic encephalopathy presumed to be from underlying hepatic encephalopathy and possible underlying infection. 2. Liver cirrhosis with elevated ammonia level. 3. Urinary tract infection. 4. Hypernatremia secondary to dehydration. 5. Acute kidney injury. 6. Concerns for aspiration pneumonia. 7. Sacral wound. PLAN: At this time, CT brain was negative. MRI of the brain is pending as well and EEG. Neurology recommendations noted he writes that he wants the patient on anti-seizure medications, but nothing has been written. Nursing staff to talk with Neurology. The patient has a sacral wound with recent wound cultures according to the [facility], she had VRE and was on daptomycin and cefepime, which we went and restarted today. I will consult with the wound care doctor who has been consulted and the ID doctor will be changed as she was seeing a different ID doctor. Her urine and blood cultures were no growth today. I will initiate IV TPN for nutrition. We did schedule lactulose t.i.d. rectal enemas as the patient is not responsive for any oral lactulose. We will go ahead and get PT/OT evaluation. Consultants involved were wound care, ID, Neurology and Cardiology. I spoke with the medical [id number], by phone and I discussed overall findings. She reports to me that her grandma has declined in the last several months. Of note was intubated in the ICU septic, had multiple cardiac arrest in [place], [place] and then she went to an LTAC progressively improved a little bit, but never was back to her normal baseline. Of note just several days ago according to the MPOA, the patient was progressively improving and was able to talk to her and hold a conversation at [facility]. Today, she is very obtunded and very confused on examination, I discussed this with her. At this time, I reviewed the whole plan of care including lab findings, imaging, and the next plan of care and she understood and verbalized understanding. I have discussed with her that all the consultants involved in her care as well. I did discuss code status, she at this time would want her grandma to be full code, but she would like to talk to her uncle's first in the event she does want to change it. She understands that her grandma is severely ill, very sick and has been sick for the last several months. At this time, we will continue with same plan of care with no changes. We will await MRI brain and EEG, and we will update the MPOA hopefully tomorrow with new updates. At this time, the patient is still not responsive on examination. She verbalized understanding and agrees to plan of care. MD LEV Garcia/DARRELL /[id number]
[2019-11-16] MEDS: CENTRAL TPN FORMULA 1 BAG IV SCH (20:30)
[2019-11-16] MEDS: CEFEPIME 1GM/NS 0.9% 50 ML 50 ML IV SCH (22:00)
[2019-11-17] VITALS (7 sets, daily range): BP systolic 111–137; BP diastolic 63–80
[2019-11-17] MEDS: RIFAXIMIN 550 MG TABLET PO SCH ×2 (00:24→11:28)
[2019-11-17 04:35] LABS: BASOPHILS % 0.1 % (0.0-1.0); HEMATOCRIT 28.7 % (34.2-44.1); HEMOGLOBIN 8.8 g/dL (12.0-16.0); LYMPHOCYTES # (AUTO) 0.6 (1.0-3.2); LYMPHOCYTES % 5.3 % (18.0-39.1); MEAN CORPUSCULAR HEMOGLOBIN 27.1 pg (28-32); MEAN CORPUSCULAR HGB CONC 30.7 g/dL (31-35); MEAN CORPUSCULAR VOLUME 88.3 fL (81-99); MONOCYTES # (AUTO) 0.4 (0.2-0.8); MONOCYTES % 3.1 % (4.4-11.3); NEUTROPHILS # (AUTO) 10.3 (2.1-6.9); NEUTROPHILS % 91.1 % (38.7-80.0); PLATELET COUNT 156 x10e3/uL (140-360); RED BLOOD COUNT 3.25 x10e6/uL (3.6-5.1); RED CELL DISTRIBUTION WIDTH 22.8 % (11.7-14.4)
[2019-11-17] MEDS: CEFEPIME 1GM/NS 0.9% 50 ML 50 ML IV SCH ×3 (05:22→23:00)
[2019-11-17] MEDS: BUMETANIDE INJ 0.25MG/ML 4ML VIAL IV SCH (05:22)
[2019-11-17 05:42] LABS: ANION GAP 8.6 mmol/L (8-16); CALCIUM 7.9 mg/dL (8.4-10.2); CREATININE, SERUM 1.88 mg/dL (0.57-1.11)
[2019-11-17 05:47] LABS: POTASSIUM 2.6 mmol/L (3.5-5.1)
[2019-11-17] MEDS ORDERED: POTASSIUM CHLORIDE 20MEQ/100ML 100 ML IV ONE ×3 (06:45→11:00)
[2019-11-17] MEDS: INSULIN LISPRO 100 UNIT/1 ML 3ML VIAL SQ SCH ×4 (07:30→16:50)
--- NOTE | 2019-11-17 08:00 | NUR ---
aware of FSBG 400. Received orders to administer Humalog 15 units SQ
[2019-11-17] MEDS: LACTULOSE SYRUP 20 GM/30 ML UDC RC SCH ×3 (09:00→22:00)
--- NOTE | 2019-11-17 11:19 | NUR ---
patient remains with significant encephalopathy and obtunded status 96.4 95 132/69 GENERAL: She does open her eyes to verbal and physical stimulation. She looks at the examiner. Verbalizes her mouth just one or two words, but is very lethargic, does not concentrate and not able to focus and maintain alertness. HEENT: Extraocular muscles intact. Doll's eyes. NECK: There is no nuchal rigidity. Her neck is supple. Her trachea is midline. CARDIOVASCULAR: Regular rate and rhythm. PULMONARY: Clear to auscultation. ABDOMEN: Distended. NEUROLOGIC: She does withdraw from noxious stimulation. Upper extremities at least 3/5, lower extremities 2/5. Reflexes are diminished. Gross sensory response to all four extremities seems symmetric. ASSESSMENT AND PLAN: I am seeing the patient for severe diffuse encephalopathy and delirium, likely infectious encephalopathy. We will get an EEG and an MRI of the brain to rule out any structural focal dysfunction subclinical status, but I would empirically initiate antiepileptics at this point. as we wait for EEG to rule out subclinical seizure patient seems to be having a prolonged subacute deline, MRI also pending
--- NOTE | 2019-11-17 13:37 | Diagnostic Imaging Report ---
History: Altered mental status Comparison studies: Head CT 11/15/2019. Technique: 3-D T1, axial T2 FLAIR, axial T2*GRE, axial T2 and axial DWI. Intravenous contrast: None Findings: Scalp: Normal in signal. No masses. Bone marrow: Normal in signal intensity. Brain sulci: Moderately prominent. Ventricles: Moderate compensatory dilatation. No hydrocephalus. Extra axial spaces: No mass, no fluid collection. Parenchyma: Multiple chronic cortical/subcortical infarcts with encephalomalacia and/or gliosis include the following: Left frontal lobe within the left middle frontal gyrus and left frontal [place] radiata, left subinsular white matter, right centrum semiovale along the right internal MCA watershed border zone, along the right inferior frontal gyrus, regional to the right middle occipital gyrus and in the bilateral cerebellar hemispheres. A few scattered T2 FLAIR hyperintense foci in the supratentorial white matter are nonspecific but are most compatible chronic microvascular ischemic changes. No mass or hemorrhage. Evaluation of the posterior fossa and inferior temporal lobes are somewhat limited artifacts on the DWI sequence. No gross abnormal restricted diffusion. Suprasellar region: No abnormalities. Craniocervical junction: Patent foramen magnum. No Chiari malformation. Vessels: Normal flow-voids in the arteries and sinuses. Incidental findings: Nonspecific mucosal thickening in the left sphenoid sinus. IMPRESSION: No acute intracranial abnormalities. Chronic findings: 1. Moderate generalized parenchymal volume loss. 2. Multiple small chronic infarcts within multiple vascular territories for which cardio/embolic etiology is a consideration. 3. Mild microvascular scheme changes. Recommendation: Correlate with cardiac history and echocardiogram if not recently performed. Neck and intracranial CTA or MRA may also further evaluate the vasculature. Signed by: Dr. Gautam Acuna M.D. on 11/17/2019 1:34 PM
[2019-11-17] MEDS: LEVETIRACETAM 500MG/5ML VIAL 500 MG in SODIUM CHLORIDE 0.9% 100 ML 100 ML IV SCH ×2 (13:57→22:00)
--- NOTE | 2019-11-17 14:00 | NUR ---
Dr. Palacios [facility] Nina RN at bedside. POJohnna requested patient to become DNR
--- NOTE | 2019-11-17 14:04 | NUR ---
WOUND CARE CONSULT FOR 79 YO FEMALE HX OF AMS CHARU 10 ON STRICT PUP STATUS AND INTERVENTIONS AND ALTERNATING PRESSURE MATTRESS LABS: WBC-11.31 HGB_8.8 GLUCOSE-352 SKIN ASSESSMENT COMPLETE PATIENT PRESENTS WITH SACRAL STAGE 4 ULCERATION 30%SLOUGH 70% DULL GRANDULATION SURROUNDING PARVEEN AREA DTI TOTAL SURFACE MEASURES 9CM X9CM MID OPEN AREA 4CM X5CM X2CM WITH UNDERMINING 10 O'CLOCK TO 1 O'CLOCK 2CM RECOMMENDATIONS: NURSING TO CONTINUE TO MAINTAIN STRICT PUP STATUS AND INTERVENTIONS AND ALTERNATING PRESSURE MATTRESS NURSING TO CONTINUE TO ASSIST PATIENT OUT OF BED FOR MEALS AND MUCH TOLERATED NURSING TO CONTINUE TO ASSIST PATIENT NEEDED WITH MEALS AND NUTRITIONAL SUPPLEMENTS TO ENSURE PROPER REQUIREMENTS FOR HEALING NURSING TO CONTINUE TO OFFLOAD FEET AND HEELS NEEDED WITH PILLOW SUSPENSION WHEN IN BED NURSING TO CLEAN SACRAL STAGE 4 ULCERATION WITH NORMAL SALINE DAILY AND APPLY SANTYL OINTMENT TO WOUND BASE WITH 4X4S AND COVER AND SECURE WITH ALLEVYN FOAM DRESSING Addendum: 11/17/19 at 1417 by Dylan Chang RN Amended: Links added.
[2019-11-17 14:28] LABS: BASOPHILS % 0.1 % (0.0-1.0); HEMATOCRIT 27.9 % (34.2-44.1); HEMOGLOBIN 8.4 g/dL (12.0-16.0); LYMPHOCYTES # (AUTO) 0.5 (1.0-3.2); LYMPHOCYTES % 4.9 % (18.0-39.1); MEAN CORPUSCULAR HEMOGLOBIN 26.8 pg (28-32); MEAN CORPUSCULAR HGB CONC 30.1 g/dL (31-35); MEAN CORPUSCULAR VOLUME 89.1 fL (81-99); MONOCYTES # (AUTO) 0.4 (0.2-0.8); MONOCYTES % 3.8 % (4.4-11.3); NEUTROPHILS % 90.7 % (38.7-80.0); PLATELET COUNT 156 x10e3/uL (140-360); RED BLOOD COUNT 3.13 x10e6/uL (3.6-5.1); RED CELL DISTRIBUTION WIDTH 22.7 % (11.7-14.4)
[2019-11-17 14:46] LABS: ANION GAP 12.6 mmol/L (8-16); CALCIUM 7.8 mg/dL (8.4-10.2); CREATININE, SERUM 1.91 mg/dL (0.57-1.11)
[2019-11-17 14:54] LABS: POTASSIUM 2.6 mmol/L (3.5-5.1)
--- NOTE | 2019-11-17 14:56 | NUR ---
Notified of K2.6
--- NOTE | 2019-11-17 16:05 | NUR ---
aware of ABG results
[2019-11-17 16:13] LABS: ABG PCO2 36 mmHg (35-45); ABG PH 7.21 (7.35-7.45); ABG PO2 101 mmHg (80-105)
[2019-11-17 16:14] LABS: ABG HCO3 14 mmol/L (22-26); ABG TCO2 15
--- NOTE | 2019-11-17 16:44 | NUR ---
Nutrition Intervention Note RD Recommendation(s) for Physician: -Recommend enteral nutrition through NGT is feasible: Glucerna 1.5 @ goal rate of 40 mL/hr (provides 1440 kcal, 79 g protein) -If enteral nutrition is not feasible, then recommend to continue TPN and modify goal rate to 70 mL/hr with 25 gm/day lipids (30% dextrose/500 mL (252 g dextrose), 10% amino acids/500 mL (84 g amino acids), 25 gm/day lipids, total volume 1680 mL) provides 1418 kcal, 84 g protein Plan of Care: RD following, monitoring for tolerance and adequacy Nutrition reason for involvement: pressure ulcer, parenteral nutrition RD Assessment (11/17/19) Pt is an 79 year old female admitted with AMS. Unable to obtain nutrition history from pt since it is noted that pt is confused and not responsive. TPN was started. Recommendations provided. Will continue to monitor. Principal Problems/Diagnoses: AMS PMH: bed-bound, generalized weakness, has a history of sepsis in the past, renal failure, temporary dialysis back in June, hypertension, diabetes GI: soft, non-tender, large, round abdomen, last recorded BM 11/16 Skin: stage 4 pressure ulcer sacrum Labs: (11/16) Na 150, K 2.6, BUN 27, Cr 1.88, Glu 352, Ca 7.9 Meds: insulin, antibiotics, lactulose Ht: 64 inches Wt: 215 lbs BMI: 36.9 kg/m2 IBW: 120 lbs Malnutrition Evaluation (11/17/19) Unable to assess. Will re-evaluate at follow-up as appropriate. Nutrition Prescription (Diet Order): NPO, TPN @ 85 mL/hr with 25 gm lipids 3x/week (provides 1544 kcal, 102 g protein) Estimated Nutritional Needs: 3301-3169 calories/day (22-25 kcal/kg IBW) 82-109 g protein/day (1.5-2 g pro/kg IBW) Diet Adequacy: Meeting calorie needs, Meeting protein needs Tolerance: N/A Diet Education Needs Assessment: Diet education not indicated Nutrition Care Level: moderate Nutrition Diagnosis: Inadequate oral intake related to decreased ability to consume sufficient energy secondary to altered mental status as evidenced by need for alternative means of nutrition. Goal: Patient will meet 75-100% of estimated needs by follow up Progress: N/A Interventions: -Composition, Rate, Route, Recommended Modifications Monitoring/Evaluation: -Total energy intake, Total protein intake, Formula/Solution, Weight change Signed: Rea Suraez RD, LD
[2019-11-17] MEDS: DAPTOMYCIN 500mg 10ML 500 MG in SODIUM CHLORIDE 0.9% 100 ML IV SCH (18:21)
--- NOTE | 2019-11-17 19:20 | NUR ---
Report given to oncoming nurse of patient's status. Agonal breathing noted ( aware). Grandaughter and son at bedside. Side rails upx2, call light within reach.
[2019-11-17] MEDS ORDERED: POTASSIUM CHLORIDE 20MEQ/100ML 200 ML IV ONE (20:15)
--- NOTE | 2019-11-17 20:15 | Consultation ---
DATE OF CONSULTATION: 11/17/2019 Infectious Disease Consultation I would like to thank, Dr. Palacios, for this interesting consult. HISTORY OF PRESENTING ILLNESS: This is a female, 79-year-old with past medical history of hypertension and hyperlipidemia, who has been sent from [facility] with concerns of confusion. The patient has granddaughter at the bedside. There is no fever. The patient is not able to communicate or give any information. Most of the information has been obtained from medical records. The patient has a history of sacral decubitus ulcer infected and she is on daptomycin and cefepime at [facility], completing the course of the treatment. Now the patient has been transferred and our service has been asked to evaluate and give further recommendations. PAST MEDICAL HISTORY: As mentioned above. PAST SURGICAL HISTORY: Cholecystectomy. ALLERGIES: TO PENICILLIN. MEDICATIONS: Reviewed. FAMILY HISTORY: Noncontributory. SOCIAL HISTORY: The patient lives right now at the [facility]. There is no documented history of sexually transmitted diseases. REVIEW OF SYSTEMS: Unable to obtain. PHYSICAL EXAMINATION: GENERAL: The patient is incoherent. Do not follow any commands. Do not make eye contact. HEENT: Atraumatic. HEART: S1 and S2 are normal. ABDOMEN: Soft and nontender. EXTREMITIES: No edema, but the patient is able to move all her extremities. NEUROLOGIC: Eyes are closed, incoherent, not following any commands. LABORATORY DATA: Reviewed. ASSESSMENT: 1. Confusion, unknown source. 2. Change in mental status. 3. Metabolic encephalopathy. 4. Urinary tract infection. 5. Aspiration pneumonia. 6. Sacral decubitus ulcer. PLAN: The patient will be continued on IV cefepime and IV daptomycin on the current dose. Check CBC in the morning. Reevaluate the patient in the morning for further recommendations. Thank you for letting me to participate in the care of you patient. Betty Hernandes MD FT/DARRELL /[id number]
[2019-11-17] MEDS: CENTRAL TPN FORMULA 1 BAG IV SCH (21:00)
[2019-11-17] MEDS ORDERED: INSULIN GLARGINE 100 UNITS/ML VIAL SQ SCH (21:00)
[2019-11-17] MEDS ORDERED: LACTULOSE SYRUP 20 GM/30 ML UDC PO SCH (21:00)
[2019-11-17] MEDS ORDERED: LACTULOSE SYRUP 20 GM/30 ML UDC PO PRN (21:45)
--- NOTE | 2019-11-17 22:15 | NUR ---
STEPHEN Barrera refused rectal tube. Call if stools are increasingly heavy, STEPHEN will reevaluate decision.
[2019-11-17] MEDS ORDERED: MUPIROCIN 2% OINT 22 GM TUBE TOP PRN (22:30)
--- NOTE | 2019-11-17 22:30 | NUR ---
Spoke with Dr. Palacios, aware POA refused rectal tube at this time, ordered Bactroban for affected skin areas and to use paper tape and nonadhesive when removing tape.
[2019-11-17] MEDS ORDERED: DEXTROSE 5% 1,000 ML IV SCH (23:15)
[2019-11-18] VITALS (7 sets, daily range): BP systolic 92–136; BP diastolic 47–73
--- NOTE | 2019-11-18 00:06 | NUR ---
[employer] inserted Dobbhuff to right naris, Pt tolerated well. Will call radiology for placement check.
--- NOTE | 2019-11-18 00:19 | Diagnostic Imaging Report ---
EXAM: Abdomen Radiograph 1 View(s) INDICATION: dobhoff placement COMPARISON: CT dated 10/30/2019 FINDINGS: The tip of the Dobbhoff catheter projects over the gastric fundus. No dilated bowel loops are seen in the imaged upper abdomen. The lower abdomen and pelvis is not included in the [id number]. Calcific density projecting over the inferior aspect of the liver relate to gallstones seen on CT dated 10/30/2019. IMPRESSION: 1. Dobbhoff catheter tip projects over the gastric fundus. 2. Cholelithiasis. Signed by: Landon Mora MD on 11/18/2019 12:16 AM
--- NOTE | 2019-11-18 00:52 | NUR ---
Spoke with Dr. Palacios regarding KUB results for Dobbhoff placement, stated ok to use.
--- NOTE | 2019-11-18 01:10 | Progress Note ---
DATE: 11/17/2019 Medicine Progress Note SUBJECTIVE: The patient is still very obtunded on examination. In fact, she actually looks more obtunded compared to yesterday. I did speak to the MPOA, the granddaughter and discussed with her that her grandma was very ill and sick in fact she did change her to DNR/DNI. We do have MPOA paperwork in the chart. Nurse was present during my conversation with the MPOALorri and verified the DNR/DNI status. The patient's overall state is very poor. PHYSICAL EXAMINATION: VITAL SIGNS: Temperature is 98.2, pulse is 100, respiratory rate is 22, blood pressure 137/63, pulse ox is 96%. She is on 4 L nasal cannula. GENERAL: She is not responsive on examination. PULMONARY: Clear to auscultation bilaterally. No wheezing, rales, or rhonchi. No crackles appreciated. CARDIOVASCULAR: Positive S1, S2. No murmurs, rubs, or gallops. ABDOMEN: Soft, nondistended, and nontender to palpation. Bowel sounds present. MUSCULOSKELETAL: Unable to assess. NEUROLOGICAL: She is obtunded, "not responsive". SKIN: Intact. Warm to touch. Good cap refill. PSYCHIATRIC: She is obtunded, not responsive. EXTREMITIES: She does have trace to 1+ pedal edema in bilateral lower extremities. LABORATORY FINDINGS: Show white count was 11, hemoglobin was 8.4, hematocrit is 27, and platelets of 156. Her ABG gas shows a pH of 7.21, pCO2 36, bicarbonate of 14, and FiO2 36. Chemistry; sodium earlier was 150, now 157, potassium 2.6 replete, chloride 133, bicarbonate 14, anion gap of 12, BUN is 31, creatinine 1.91. Her glucose is 229. Lactic acid was 2. Calcium is 7.8, BUN 31, creatinine 1.9. Calcium 7.8. Procalcitonin is pending. Coronavirus not detected. Microbiology, urine cultures final negative. Blood cultures, no growth to date. IMAGING STUDIES: MRI of the brain performed today shows moderate generalized parenchymal volume loss with multiple small chronic infarcts with multiple vascular territories of cardioembolic etiology is a consideration, but there are no acute intracranial abnormalities. IMPRESSION: 1. Metabolic encephalopathy presumed from possibly hepatic encephalopathy or even possibly infection. 2. Liver cirrhosis with elevated ammonia level. 3. Urinary tract infection. 4. Hypernatremia secondary to dehydration. 5. Acute kidney injury from dehydration. 6. Concerns for pneumonia. 7. Sacral wound infection. 8. Concerns for possible subclinical seizures. PLAN: At this time, CT brain was negative, MRI of the brain was negative. I reviewed the medication list. The only possible drug on that list could be the cefepime that can cause neurotoxicity, which I reached out to the ID doctor. She promised me she will discontinue and she did not. I will talk with her tomorrow about discontinuing that drug and possibly using a different drug. The patient is currently on daptomycin and cefepime for underlying wound infection. As for the liver cirrhosis, her ammonia level is still within the normal range, but still elevated. She is getting lactulose enemas 3 times a day, I am also inserting an NG tube and giving lactulose via NG tube and also initiate the rifaximin via the NG tube. Her urine and blood cultures were negative, but we will continue with IV antibiotic therapy. As for her hyponatremia, I did initiate D5W at 50 mL/h and also initiate sodium bicarbonate tablets 1950 mg per NG tube t.i.d. due to metabolic acidosis. Continue for IV TPN for nutrition. PT, OT have been consulted, but the patient is not with it and very obtunded. Consultants involved Wound Care, ID, Neurology and Cardiology. I spent a significant period of time talking to the medical [id number], which she does have appropriate documentation placed in the chart and nurse Lorri was present throughout the entire conversation and during that conversation, I have talked to her about her grandmother's overall prognosis is being very poor. She understands and she did discuss this with her uncles as well. At this time, she has agreed to DNR/DNI status, which has been placed in the computer and a bracelet has been applied to the patient. I did discuss with her all of the lab findings, imaging findings including the MRI of the brain, but the EEG is still pending. She has been started on Keppra for possible underlying subclinical seizures. I did discuss with her about inserting the NG tube in initiating more lactulose via NG tube, which she has agreed to. She refuses a rectal Cortes. We also arranged for her to come and visit with her grandma as she has some evidence of some agonal breathing of concern that she may not make it this evening. I did discuss this with her thoroughly several times. She agreed and she did come and evaluate and see her grandma. At this time, she is DNR/DNI. I did discuss the plan of care with her as well as the nursing staff. The patient's overall prognosis is very poor, in fact probably benefits from hospice services. MD LEV Garcia/DARRELL /[id number]
[2019-11-18] MEDS: RIFAXIMIN 550 MG TABLET PO SCH (01:45)
[2019-11-18] MEDS: SODIUM BICARBONATE 650 MG TAB NG SCH ×3 (02:00→15:00)
[2019-11-18] MEDS: INSULIN LISPRO 100 UNIT/1 ML 3ML VIAL SQ SCH ×4 (03:00→18:00)
[2019-11-18] MEDS: CEFEPIME 1GM/NS 0.9% 50 ML 50 ML IV SCH (06:00)
--- NOTE | 2019-11-18 06:30 | NUR ---
Spoke with Pharmacy to confirm doctor's order for medications to be compatible for NGT administration, verbalized understanding.
[2019-11-18 06:41] LABS: BASOPHILS % 0.2 % (0.0-1.0); HEMATOCRIT 28.2 % (34.2-44.1); HEMOGLOBIN 8.5 g/dL (12.0-16.0); LYMPHOCYTES # (AUTO) 0.9 (1.0-3.2); LYMPHOCYTES % 7.2 % (18.0-39.1); MEAN CORPUSCULAR HEMOGLOBIN 26.8 pg (28-32); MEAN CORPUSCULAR HGB CONC 30.1 g/dL (31-35); MONOCYTES # (AUTO) 0.5 (0.2-0.8); MONOCYTES % 4.3 % (4.4-11.3); NEUTROPHILS # (AUTO) 10.3 (2.1-6.9); NEUTROPHILS % 86.9 % (38.7-80.0); PLATELET COUNT 152 x10e3/uL (140-360); RED BLOOD COUNT 3.17 x10e6/uL (3.6-5.1)
[2019-11-18] MEDS ORDERED: ACETAMINOPHEN 325 MG/10 ML UDC NG PRN (06:45)
[2019-11-18 06:58] LABS: ALBUMIN 1.6 g/dL (3.5-5.0); ALBUMIN/GLOBULIN RATIO 0.4 (0.8-2.0); ANION GAP 8.1 mmol/L (8-16); CALCIUM 8.4 mg/dL (8.4-10.2); CREATININE, SERUM 2.37 mg/dL (0.57-1.11); POTASSIUM 3.1 mmol/L (3.5-5.1)
--- NOTE | 2019-11-18 08:30 | NUR ---
The pt. was received form the off-going nurse and the pt. is breathing agonally. There is no response to stimuli.
[2019-11-18] MEDS ORDERED: RIFAXIMIN 550 MG TABLET NG SCH (09:00)
[2019-11-18] MEDS ORDERED: POTASSIUM CHLORIDE 20MEQ/15ML UDC NG ONE (09:00)
--- NOTE | 2019-11-18 09:04 | Diagnostic Imaging Report ---
EXAMINATION: CHEST SINGLE (PORTABLE) INDICATION: Shortness of breath COMPARISON: Chest radiograph of 11/15/2019 FINDINGS: LINES/TUBES:Weighted tip feeding tube terminates in the stomach. Right PICC line terminates in the SVC. EKG leads overlie the chest. LUNGS:The lungs are moderately inflated. There is perihilar fullness and indistinctness of the pulmonary vasculature. Bibasilar patchy opacities appear unchanged. PLEURA:Trace pleural effusions. No pneumothorax. MEDIASTINUM:The cardiomediastinal silhouette appears unchanged in size and shape. BONES/SOFT TISSUES:No acute osseous injury. ABDOMEN:No free air under the diaphragm. IMPRESSION: Central pulmonary vascular congestion and unchanged bibasilar patchy opacities, more likely subsegmental atelectasis than superimposed aspiration or pneumonia. Signed by: Nubia Bryson MD on 11/18/2019 9:01 AM
[2019-11-18] MEDS: LEVETIRACETAM 500MG/5ML VIAL 500 MG in SODIUM CHLORIDE 0.9% 100 ML 100 ML IV SCH (09:10)
[2019-11-18] MEDS: LACTULOSE SYRUP 20 GM/30 ML UDC NG SCH ×2 (09:10→15:00)
[2019-11-18] MEDS: LACTULOSE SYRUP 20 GM/30 ML UDC RC SCH ×2 (09:11→15:00)
--- NOTE | 2019-11-18 10:22 | NUR ---
Dr. Palacios is rounding and orders received for tpn and mag level.
[2019-11-18] MEDS: DOCUSATE SODIUM LIQD 100 MG/10 ML UDC NG SCH ×2 (12:16→17:00)
[2019-11-18] MEDS: POLYETHYLENE GLYCOL 3350 17 GM PACK PO SCH ×2 (12:18→17:00)
--- NOTE | 2019-11-18 13:02 | NUR ---
very lethargic minimimally responsive 98.2 102 136/73 obtunded eomi to dolls perrl face appears symmetric tachycardic abd soft cta nasal canula- breathing comfortably withdraws from nox stim ini all 4 but 3/5 max not following commands a/p obtunded/severe encephalopathy - elevated ammonia, and EEg suggest hepatic encephalopathy gi consult may be helpful EEG shows triphasic waves and attneuated background- severe encephalopathy no seizure repeat EEG tomorrow [facility] MRI shows at least 5 old ischemic lesions (>6mo) with encephalomalacia in all vascular territories. discussed w/ daughter /family. explained all the above, spinal tap if no improvement in 2 days to rule out central vasculitis vasculitic panel sent out
[2019-11-18] MEDS ORDERED: THIAMINE HCL INJ 100 MG/ML 2ML VIAL IV ONE (13:15)
--- NOTE | 2019-11-18 13:42 | NUR ---
eeg 30 min study eval for encephalopathy 21 channel- 10/20 international electrode placement system, read in bipolar and transverse montage being done to evaluate for neurophysiological status EEG data- attneuated beta activity and low amplitude alpha waves periodic high amplitude triphasic waves with rostrocaudal pattern no seizures of harp waves eeg interpretation severe nephropathy consistent with metabolic hepatic encephalopathy no seizures captured
[2019-11-18] MEDS ORDERED: SODIUM CHLORIDE 0.9% 500ML 500 ML ONE (15:31)
--- NOTE | 2019-11-18 15:34 | NUR ---
phoned in to check the pt's condition and was advised of recent bp 66/39 by machine and this mortgage or loan underwriter manual reading 92 /60 and the was given these results. Bolus 500cc n/s order received and is hanging.
--- NOTE | 2019-11-18 16:40 | NUR ---
In to give med pass and found the pt. in [facility] respiration and the materials tech called while I was at bedside to report hr 25. The bedside monitor reads the same. Unable to obtain pulse at this time. The was paged to relay findings and he asked that the ER pronounce time of .
--- NOTE | 2019-11-18 16:55 | NUR ---
Dr. Fish form the ER pronounced the pt. at this time and information relayed to Dr. Palacios.
--- NOTE | 2019-11-18 18:24 | NUR ---
[facility] has been notified of the pt's demise and the family is at the bedside.
[2019-11-18] MEDS ORDERED: CENTRAL TPN FORMULA 1 BAG IV SCH (20:00)
--- NOTE | 2019-11-18 20:00 | NUR ---
photographic process attendant transports body to home. Family at bedside.
[2019-11-18] MEDS ORDERED: PIPER-TAZ 3.375 GM 50 ML IV SCH (21:00)
--- NOTE | 2019-11-19 01:52 | Progress Note ---
DATE: 11/18/2019 Medicine Progress Note The patient was seen and evaluated approximately at 10:05 this morning with the nursing staff. SUBJECTIVE: The patient is still obtunded. She is not responsive at all. I am doing a sternal rub, still no response whatsoever. I did talk with the granddaughter, Sary Bello, who is the MPOA about her grandmother that her overall prognosis seems to be very poor. She is exhibiting signs of agonal breathing just like she did yesterday. The granddaughter also noticed that yesterday as well. I advised her and her family to come visit their grandmother, as she is actively dying. I discussed the plan of care with the nurse taking care of the patient. The patient is still receiving some lactulose via NG tube as well as rectally. MRI of the brain was found to be negative. The EEG showed diffuse encephalopathic changes, in which I discussed this with the neurologist. PHYSICAL EXAMINATION: VITAL SIGNS: Temperature was 97.6, pulse 69, respiratory rate is 18, blood pressure is 132/57. She was on 95%. She was on 4 L nasal cannula. GENERAL: She is not responsive on sternal rub or on any physical exam. PULMONARY: Clear to auscultation bilaterally. No wheezing, no rales, no rhonchi. She is exhibiting some evidence of some agonal breathing. CARDIOVASCULAR: Positive S1 and S2. No murmurs, rubs, or gallops appreciated. ABDOMEN: Soft, nondistended, and nontender to palpation. Bowel sounds present. MUSCULOSKELETAL: Unable to assess. NEUROLOGIC: She is very obtunded, not responsive. SKIN: Intact. Warm to touch. Good cap refill. EXTREMITIES: Shows evidence of edema. LABORATORY DATA: White count was 11.8, hemoglobin 8.5, hematocrit is 28, platelets of 152. Chemistry; sodium increased to 159, potassium 3.1, chloride 140, bicarbonate was 14, anion gap of 8, BUN is 40, creatinine is 2.37, calcium is 8.4, total bilirubin 0.3, AST 42, ALT 23, alkaline phosphatase 157. Ammonia level was 92. It is within the normal range at our facility, but still elevated. Troponin was 0.069, negative. Albumin 1.6. Magnesium 2.4. Urinalysis consistent with concerns of UTI. Several serologies and immunology are pending. Coronavirus was not detected. MICROBIOLOGY: Urine cultures were no growth and final blood cultures were negative. IMAGING STUDIES: Today, chest x-ray shows central pulmonary vascular congestion with unchanged bibasilar patchy opacities, more likely subsegmental atelectasis and superimposed aspiration or pneumonia. EEG: This was reviewed with the neurologist. He reports that there is some diffuse encephalopathic changes, but no evidence of any seizures. IMPRESSION: 1. Metabolic encephalopathy, presumed from underlying hepatic encephalopathy or even possibly underlying infection. 2. Hepatic steatosis, concern for likely underlying cirrhosis with elevated ammonia level. 3. Probable urinary tract infection. 4. Hypernatremia secondary to dehydration. 5. Acute kidney injury from dehydration. 6. Concerns for possible underlying pneumonia. 7. Sacral wound infection. PLAN: At this time, the patient is severely ill. I have spoken with the granddaughter, who is the medical [id number] to come visit her grandmother. The patient is very obtunded, not responsive and she has some underlying agonal breathing. The patient is DNR/DNI as per [facility]'s wishes and family's wishes. Overall prognosis very poor. I also spoke with her yesterday. She did come visit her grandmother and she understands that her grandmother is severely ill and felt like she was likely going to pass soon. I offered palliative care, we would like to see how she does over the next day or two, but she understands that her overall prognosis is significantly poor. MRI of the brain was found to be negative. EEG showed diffuse encephalopathic changes, but no evidence of any seizures, as I discussed this with the neurologist. The neurologist also spoke with the granddaughter by phone and discussed overall plan of care from his standpoint. The ammonia level is still elevated. She did have some bowel movements. I added some more aggressive bowel regimen with NG tube, lactulose, rectal lactulose, Colace including MiraLAX for more stool output to see if this will help her underlying encephalopathic state. We will continue with broad-spectrum IV antibiotics being managed by ID. As for her hyponatremia, I did get rid of the sodium chloride and TPN increased the D5W drip. She did now go to worsening renal function, could be secondary to dehydration. As for her sacral wound, wound care team is involved as well as ID. The patient now seems to be in multiorgan failure. Of note, she had agonal breathing, acute kidney injury and concern for underlying sepsis now. The patient is also not responsive. We will continue with sodium bicarbonate tabs via NG tube. TPN was arranged and ordered. I rounded with the floor nurse on this patient. Consultants involved Wound care, ID, Neurology, and Cardiology. Overall, this patient's prognosis is significantly poor. Once again, I did discuss this with Sary Bello by phone and discussed with her and she wanted to come visit her grandmother, as her overall prognosis has been very poor. She is with continuously continued to decline while here in the hospital stay. At this time, we will continue with same plan of care as described above and follow with the rest of the consultants. The patient's medical [id number] agreed with plan of care and verbalized understanding. Nurse was present throughout the entire conversation. MD LEV Garcia/DARRELL /[id number]
--- NOTE | 2019-11-19 04:11 | Discharge Summary ---
DATE OF : 11/18/2019. TIME OF : 165, in which the ER physician, Dr. Fish, pronounced her . FINAL DIAGNOSES: 1. Cardiopulmonary arrest. 2. Multiorgan failure. 3. Liver cirrhosis with underlying hepatic steatosis. 4. Hepatic encephalopathy. 5. Hypernatremia. 6. Acute kidney injury. 7. Sepsis, concerns from the underlying sacral wound infection/pneumonia. 8. Healthcare-associated pneumonia. 9. Severe protein-calorie malnutrition. CONSULTANTS: Wound Care, ID, Neurology, and Cardiology. LABORATORY DATA: White count 11.8, hemoglobin 8.5, hematocrit is 28, platelets of 152. ABG; pH of 7.21, PCO2 of 36, PaO2 of 101, bicarbonate is 14, FiO2 of 36. Chemistry; sodium 149, potassium 3.1, chloride 140, bicarbonate 14, anion gap of 8.1, BUN is 40, creatinine is 2.37, calcium was 8.4, total bilirubin is 0.3, AST is 42, ALT 23, alkaline phosphatase is 157, ammonia level was 92, CK was 107, BNP was elevated at 8000, albumin 1.6 cm. Urinalysis concerning for UTI. Coronavirus is not detected. Blood cultures, no growth. Urine cultures, no growth. IMAGING STUDIES: Chest x-ray on 11/14/2019 shows bilateral airspace consolidation, greater on the right. CT abdomen and pelvis shows a large amount of stool in the rectosigmoid suggesting fecal impaction. There is evidence of hepatic steatosis, diffuse. There is liver diffuse, hypodense compared to the spleen, consistent with diffuse hepatic steatosis. CT brain, no acute intracranial abnormalities. Chest x-ray repeat on 11/15/2019 shows bilateral lower lung zone patchy consolidation concerning for underlying pneumonia. There is some evidence of pulmonary edema. Brain MRI shows no acute intracranial abnormalities. There are chronic findings of moderate generalized parenchymal volume loss with multiple small chronic infarcts with multiple vascular territories. Mild microvascular ischemic changes. Abdominal x-ray just shows where the Dobhoff was in the gastric fundus. Chest x-ray on 11/18/2019, central pulmonary vascular congestion unchanged, bibasilar patchy opacities, more likely subsegmental atelectasis, and superimposed aspiration pneumonia. HOSPITAL COURSE: This is an 79-year-old female, who had multiple comorbidities; of note, has been in and out of the hospital for the last 4-5 months according to the family. The patient was initially, according to the family, in [place] in which she developed septic shock, cardiac arrest, was on dialysis and was severely debilitated, requiring in and out of the hospital on several occasions. The patient on this admission came in from the inpatient rehab services after the patient was found to be significantly obtunded. While here, the patient was initially found to be hypernatremic. She was also to us being obtunded and abnormal lab findings. While here, several consultants were involved in this patient's care including ID, Wound Care, Cardiology, and Neurology. The patient maintained on broad-spectrum IV antibiotic therapy. Blood cultures were found to be negative including the urine cultures. The patient had underlying wound infections that was being managed and monitored by the Wound Care team as well as ID. Cardiology was consulted due to her underlying history of cardiac arrest. She was also found to have an elevated BNP with underlying heart failure. The patient's cardiac enzymes were found to be normal. After further investigation, the patient was found to have an elevated ammonia level. Despite being in the normal range here at our hospital, the ammonia level still was significantly high. Imaging studies, CT abdomen and pelvis shows evidence of diffuse steatosis of her liver. The patient apparently had underlying elevated ammonia levels at the rehab facility diagnosed by the physician there, requiring lactulose. While here, the patient was obtunded. An NG tube was inserted and lactulose was given accordingly including rectal lactulose was scheduled. She was also given stool softeners to see if her ammonia level does improve. Neurology was consulted to evaluate her underlying encephalopathy. MRI of the brain was found to be normal, but did show evidence of chronic ischemic changes. EEG showed diffuse encephalopathic changes, but no evidence of any seizures. She was initially started on antiseizure medications by the neurologist. I had several conversations with the medical [id number], Sary Bello, and I had discussed with her about her grandma's overall prognosis and overall state. Sary reports to me that her grandma had tremendously declining over the last 5 months. She has been wanting to place her grandma under hospice services as she has continued to decline on a daily basis. At this time, she wanted to continue initially to see if she would turn around and get better, but if she did not, she was really wanting to do hospice services. She made her grandma DNR DNI. Sary is the medical [id number] with documentation placed in the chart. Throughout these conversations I have had with her, nursing staff was present during these conversations. On 11/17/2019, I had a long discussion with the [facility] and told her that her grandma does not look very well and she looks like she is actively dying. The patient was having agonal breathing. I reviewed all imaging studies including all lab findings including consultants' recommendations with her. She understands that her grandma is actively dying. She was able to come to the hospital and look at her grandma and she also had her uncles to come see Ms. Soto. On 11/18/2019, I came to evaluate the patient, the patient still was not responsive. Neurology was able to speak with Ms. Bello about the imaging studies found. I spoke with Ms. Bello and discussed with her that it seems that her grandma is actively dying. She is currently in sepsis with multiorgan failure, she is also encephalopathic, concerning for underlying hepatic encephalopathy and has significant amount of wounds being treated accordingly with underlying antibiotics. She also seems to have underlying pneumonia as well. At this time, I have discussed with her since her grandma has not progressed forward and seems to be actively dying, I advised her to come and see her grandma. Nursing staff called me. The patient became very hypotensive and eventually evident on cardiac telemetry. The patient had no pulse. Blood pressure was not available and the patient was not breathing. The patient was pronounced by the ER physician at [id number]. I called and reached out Saryalfonso Bello being explained the overall findings of her grandma. She came to evaluate her grandma with her uncles and condolences were given to the family. She was very appreciative of our care and she appreciated the nursing staff as well. DISPOSITION: To more and to the home. I answered all the questions that the [facility] had, Sary Bello, with the nursing staff present throughout the entire conversations. She verbalized understanding, agreed of plan of care, and she was happy with all of our care provided to her grandma. The patient was DNR DNI as per family's wishes. MD LEV Garcia/REJIL /[id number]
[2019-11-19] MEDS ORDERED: FOLIC ACID/CYANOCOB/PYRIDOXINE TAB PO SCH (09:00)
--- OUTSIDE RECORDS SUMMARY | 2019-11-21 17:57 | XMS REPORT | Continuity of Care Document ---
Author Author [facility] t Organization [facility] Address [address] [place] [address] Phone Unavailable Care Team Providers Care Marine Fuel Dock Attendant Name Role Phone Veronica MARQUEZ Attphys Unavailable [...] penicillin G DA Active U 2019-11-12 00:00:00 [facility] Medications This patient has no known medications. Procedures This patient has no known procedures. Results Test Description Test Time Test Comments Results Result Comments Source CHEST SINGLE (PORTABLE) 2019-11-18 08:58:00 [facility] [address] [address] Patient Name: ZEFERINO GUILLORY MR #: [id number] : 1940 Age/Sex: 79/F Req #: [id number] Adm Physician: CLAUDIO MARQUEZ MD Ordered by: CLAUDIO MARQUEZ MD Report #: [id number] Location: MED/SURG2 Room/Bed: [facility] Procedure: [id number] DX/CHEST SINGLE (PORTABLE) Exam Date: 11/18/19 Exam [...] CLAUDIO MARQUEZ MD ABDOMEN-1VIEW (KU) 2019-11-18 00:12:00 [place] [address] Patient Name: ZEFERINO GUILLORY MR #: [id number] : 1940 Age/Sex: 79/F Req #: [id number] Adm Physician: CLAUDIO MARQUEZ MD Ordered by: CLAUDIO MARQUEZ MD Report #: [id number] Location: MED/SURG2 Room/Bed: [facility] Procedure: [id number] DX/ABDOMEN-1VIEW (KUB) Exam Date: 11/17/19 Exam Time: 2320 REPORT STATUS: Signed EXAM: Abdomen Radiograph 1 View(s) INDICATION: dobhoff placement COMPARISON: CT dated 10/30/2019 FINDINGS: The tip of the Dobbhoff catheter projects over the gastric fundus. No dilated bowel loops are seen in the imaged upper abdomen. The lower abdomen and pelvis is not included in the lhgcu-nd-mygc. Calcific density projecting over the inferior aspect of the liver relate to gallstones seen on CT dated 10/30/2019. IMPRESSION: 1. Dobbhoff catheter tip projects over the gastric fundus. 2. Cholelithiasis. Signed by: Ada Mora MD on 11/18/2019 12:16 AM Dictated By: ADA MORA MD Transcribed By: AN on 11/18/1915 COPY TO: CLAUDIO MARQUEZ MD MRI BRAIN WO 2019-11-17 13:18:00 [place] [address] Patient Name: ZEFERINO GUILLORY MR #: [id number] : 1940 Age/Sex: 79/F Req #: [id number] Adm Physician: CLAUDIO MARQUEZ MD Ordered by: CLAUDIO MARQUEZ MD Report #: [id number] Location: MED/SURG2 Room/Bed: [facility] Procedure: [id number] MRI/MRI BRAIN WO Exam Date: Exam Time: [...] 1:34 PM Dictated By: VEDA HUNT MD 0290 Transcribed By: AN on 11/17/19 6917 COPY TO: CLAUDIO MARQUEZ MD CHEST SINGLE (PORTABLE) 2019-11-15 18:15:[address], [place], [place] [address] Patient Name: ZEFERINO GUILLORY MR #: [id number] : 1940 Age/Sex: 79/F Req #: [id number] Adm Physician: JUDI CABALLERO MD Ordered by: CLAUDIO MARQUEZ MD Report #: [id number] Location: MED/SURG2 Room/Bed: [facility] Procedure: [id number] DX/CHEST SINGLE (PORTABLE) Exam Date: 11/15/19 Exam [...] MARQUEZ MD CT ABDOMEN/PELVIS WO 2019-11-15 01:16:00 [place] [address] Patient Name: ZEFERINO GUILLORY MR #: [id number] : 1940 Age/Sex: 79/F Req #: [id number] [facility] Physician: CLAUDIO MARQUEZ MD Ordered by: BRE ROGERS DO Report #: [id number] Location: MED/SURG2 Room/Bed: [facility] Procedure: [id number] CT/CT ABDOMEN/PELVIS WO Exam Date: 11/15/19 Exam [...] ROGERS DO CT BRAIN WO 2019-11-15 00:58:00 [place] [address] Patient Name: ZEFERINO GUILLORY MR #: [id number] : 1940 Age/Sex: 79/F Req #: [id number] Adm Physician: CLAUDIO MARQUEZ MD Ordered by: BRE ROGERS DO Report #: [id number] Location: MED/SURG2 Room/Bed: [facility] Procedure: [id number] CT/CT BRAIN WO Exam Date: 11/15/19 Exam [...] ROGERS DO CHEST SINGLE (PORTABLE) 2019-11-14 19:12:00 [place] [address] Patient Name: ZEFERINO GUILLORY MR #: [id number] : 1940 Age/Sex: 79/F Req #: [id number] Adm Physician: Ordered by: BRE ROGERS DO Report #: [id number] Location: ER Room/Bed: Procedure: [id number] DX/CHEST SINGLE (PORTABLE) Exam Date: 11/14/19 Exam [...] Perfo rming Test: TCH- CTA CHEST FOR [id number] 16:23:00 Name: ZEFERINO GUILLORY [facility] [place] : 1940 Age/S: 79 / F [address] [place] [address] Unit #: [id number] Loc: [place] [address] Phys: Carlton Mo MD Acct: [id number] Dis Date: Status: REG CLI PHONE #: [phone] Exam Date: 11/12/2019 1550 FAX #: [phone] Reason: CRITICAL ILLNESS MYOPATHY EXAMS: CPT CODE: [id number] [place] [address] EXAM: CTA CHEST WITH CONTRAST DATE: 11/12/2019 [...] CT imaging performed at this location utili [employer] radiation dose optimization techniques which include one [...] Signed Rep ort (CONTINUED) Name: ZEFERINO GUILLORY [facility] [place] : 1940 Age/S: 79 / F [address] Unit #: [id number] Loc: [place], [place] [address] Phys: Carlton Mo MD Acct: [id number] Dis Date: Status: REG CLI PHONE #: [phone] Exam Date: 11/12/2019 1550 FAX #: [phone] Reason: CRITICAL ILLNESS MYOPATHY EXAMS: CPT CODE: [id number] [place] [address] <Continued> Bones: No acute abnormality. Age-related degenerative [...] Mo MD on 11/12/2019 4:11 PM. SL: [id number] at 1623 Reported and signed by: Scar Mendoza D.O. CC: Carlton Mo MD Technologist:RT Quynh(R)(CT) CTDI: DLP: Trnscb Date/Time: 11/12/2019 (162) [email or web address] Orig Print D/T: S: 11/12/2019 (2032) PAGE 2 Signed Report - CT ABD PELVIS W/O [id number] 17:00:00 Name: ZEFERINO GUILLORY [facility] : 1940 Age/S: 79 / F [address] [place] [address] Bl Unit #: [id number] Loc: [place], [place] [address] Phys: Johny Hernandez MD Acct: [id number] Dis Date: Status: REG CLI PHONE #: [phone] Exam Date: 11/10/2019 1621 FAX #: [phone] Reason: EVAL FOR ILEUS OR SBO EXAMS: CPT CODE: [id number] CT ABD PELVIS W/O CONT 07738 Clinical indication: EVAL FOR ILEUS OR SBO, [...] 1 Signed Report (CONTINUED) Name: ZEFERINO GUILLORY [facility] : 1940 Age/S: 79 / F [address] [place] [address] Unit #: [id number] Loc: [place] [address] Phys: Johny Hernandez MD Acct: [id number] Dis Date: Status: REG CLI PHONE #: [phone] Exam Date: 11/10/2019 1621 F AX #: [phone] Reason: EVAL FOR ILEUS OR SBO EXAMS: CPT CODE: [id number] CT ABD PELVIS W/O CONT 57425 <Continued> No splenomegaly. Pancreas: Pancreatic atrophy. No [...] Signed Report (CONT INUED) Name: ZEFERINO GUILLORY [facility] Richi [place] : 1940 Age/S: 79 / F [address] [place] [address] Unit #: [id number] Loc: [place] [address] Phys: Johny Pineda MD Acct: [id number] Dis Date: Status: REG CLI EDGARDO NE #: [phone] Exam Date: 11/10/2019 1621 FAX #: Reason: EVAL FOR ILEUS OR SBO EXAM S: CPT CODE: [id number] CT ABD PELVIS W/O CONT 97522 <Continued> 1. Mildly dilated loops of small and large bowel suggestive of ileus 2. Fatty infiltration liver 3. Small bilateral pleural effusions and atelectasis of the lung bases 4. Decubitus ulcer SL: [id number] at 1700 Reported and signed by: Kailey Vincent M.D. CC: Johny Hernandez MD Technologist:RT Aamir(R) CTDI: DLP: Trnscb Da te/Time: 11/10/2019 (1700) [email or web address] Orig Print D/T: S: 0 11/10/2019 (1703) PAGE 3 Signed Report CHEST SINGLE (PORTABLE)2019-11-04 08:30:00 [place] [address] Patient Name: ZEFERINO GUILLORY MR #: [id number] : 1940 Age/Sex: 79/F Req #: [id number] Adm Physician: JUDI CABALLERO MD Ordered by: JUDI CABALLERO MD Report #: [id number] Location: MED/SURG2 Room/Bed: [facility] Procedure: DX/CHEST SINGLE (PORTABLE) Exam Date: 11/04/19 [...] TO: JUDI CABALLERO MD CHEST XRAY LINE [id number] 22:54:00 [place] [address] Patient Name: ZEFERINO GUILLORY MR #: [id number] : 1940 Age/Sex: 79/F Req #: [id number] Adm Physician: JUDI CABALLERO MD Ordered by: JUDI CABALLERO MD Report #: [id number] Location: MED/SURG2 Room/Bed: [facility] Procedure: [id number] DX/CHEST XRAY L INE PLACEMENT Exam Date: [...] COPY TO: JUDI CABALLERO MD RENAL RETROPERITONEAL [id number] 17:09:00 [place] [address] Patient Name: ZEFERINO GUILLORY MR #: [id number] : 1940 Age/Sex: 79/F Req #: [id number] Adm Physician: JUDI CABALLERO MD Ordered by: JUDI CABALLERO MD Report #: [id number] Location: MED/SURG2 Room/Bed: [facility] Procedure: [id number] US/US RENAL RET ROPERITONEAL COMP Exam Date: [...] COPY TO: JUDI CABALLERO MD CT ABDOMEN/PELVIS [id number] 14:30:00 [place] [address] Patient Name: ZEFERINO GUILLORY MR #: [id number] : 1940 Age/Sex: 79/F Req #: [id number] Adm Physician: JUDI CABALLERO MD Ordered by: JUDI CABALLERO MD Report #: [id number] Location: MED/SURG2 Room/Bed: [facility] Procedure: [id number] CT/CT ABDOMEN/P NILTON WO Exam Date: 10/30/19 [...] JUDI CABALLERO MD CHEST SINGLE (PORTABLE)2019-10-29 15:25:00 [place] [address] Patient Name: ZEFERINO GUILLORY MR #: [id number] : 1940 Age/Sex: 79/F Req #: [id number] Adm Physician: Ordered by: EVELYNE RIOS MD Report #: [id number] Location: ER Room/Bed: Procedure: [id number] DX/CHEST SING LE (PORTABLE) Exam Date: 10/29/19 [...] 1526 Transcribed By: AN on 10/29/19 1526 BENCH WORKER HELPER Y TO: EVELYNE RIOS MD
--- OUTSIDE RECORDS SUMMARY | 2019-11-21 18:03 | XMS REPORT | Continuity of Care Document ---
Author Author [facility] t Organization [facility] Address [address] [place] [address] Phone Unavailable Care Team Providers Care Signals Collector/Analyst Name Role Phone Veronica MARQUEZ Attphys Unavailable [...] penicillin G DA Active U 2019-11-12 00:00:00 [facility] Medications This patient has no known medications. Procedures This patient has no known procedures. Results Test Description Test Time Test Comments Results Result Comments Source CHEST SINGLE (PORTABLE) 2019-11-18 08:58:00 [facility] [address] [address] Patient Name: ZEFERINO GUILLORY MR #: [id number] : 1940 Age/Sex: 79/F Req #: [id number] Adm Physician: CLAUDIO MARQUEZ MD Ordered by: CLAUDIO MARQUEZ MD Report #: [id number] Location: MED/SURG2 Room/Bed: [facility] Procedure: [id number] DX/CHEST SINGLE (PORTABLE) Exam Date: 11/18/19 Exam [...] CLAUDIO MARQUEZ MD ABDOMEN-1VIEW (KU) 2019-11-18 00:12:00 [place] [address] Patient Name: ZEFERINO GUILLORY MR #: [id number] : 1940 Age/Sex: 79/F Req #: [id number] Adm Physician: CLAUDIO MARQUEZ MD Ordered by: CLAUDIO MARQUEZ MD Report #: [id number] Location: MED/SURG2 Room/Bed: [facility] Procedure: [id number] DX/ABDOMEN-1VIEW (KUB) Exam Date: 11/17/19 Exam Time: 2320 REPORT STATUS: Signed EXAM: Abdomen Radiograph 1 View(s) INDICATION: dobhoff placement COMPARISON: CT dated 10/30/2019 FINDINGS: The tip of the Dobbhoff catheter projects over the gastric fundus. No dilated bowel loops are seen in the imaged upper abdomen. The lower abdomen and pelvis is not included in the onwum-uq-ewiy. Calcific density projecting over the inferior aspect of the liver relate to gallstones seen on CT dated 10/30/2019. IMPRESSION: 1. Dobbhoff catheter tip projects over the gastric fundus. 2. Cholelithiasis. Signed by: Ada Mora MD on 11/18/2019 12:16 AM Dictated By: ADA MORA MD Transcribed By: AN on 11/18/1915 COPY TO: CLAUDIO MARQUEZ MD MRI BRAIN WO 2019-11-17 13:18:00 [place] [address] Patient Name: ZEFERINO GUILLORY MR #: [id number] : 1940 Age/Sex: 79/F Req #: [id number] Adm Physician: CLAUDIO MARQUEZ MD Ordered by: CLAUDIO MARQUEZ MD Report #: [id number] Location: MED/SURG2 Room/Bed: [facility] Procedure: [id number] MRI/MRI BRAIN WO Exam Date: Exam Time: [...] 1:34 PM Dictated By: VEDA HUNT MD 9255 Transcribed By: AN on 11/17/19 4500 COPY TO: CLAUDIO MARQUEZ MD CHEST SINGLE (PORTABLE) 2019-11-15 18:15:[address], [place], [place] [address] Patient Name: ZEFERINO GUILLORY MR #: [id number] : 1940 Age/Sex: 79/F Req #: [id number] Adm Physician: JUDI CABALLERO MD Ordered by: CLAUDIO MARQUEZ MD Report #: [id number] Location: MED/SURG2 Room/Bed: [facility] Procedure: [id number] DX/CHEST SINGLE (PORTABLE) Exam Date: 11/15/19 Exam [...] 11/15/2019 6:17 PM Di ctated By: DEVYN EKLLY MD 16 Transcribed By: AN on 11/15/191816 COPY TO: CLAUDIO MARQUEZ MD CT ABDOMEN/PELVIS WO 2019-11-15 01:16:00 [place] [address] Patient Name: ZEFERINO GUILLORY MR #: [id number] : 1940 Age/Sex: 79/F Req #: [id number] [facility] Physician: CLAUDIO MARQUEZ MD Ordered by: BRE ROGERS DO Report #: [id number] Location: MED/SURG2 Room/Bed: [facility] Procedure: [id number] CT/CT ABDOMEN/PELVIS WO Exam Date: 11/15/19 Exam [...] ROGERS DO CT BRAIN WO 2019-11-15 00:58:00 [place] [address] Patient Name: ZEFERINO GUILLORY MR #: [id number] : 1940 Age/Sex: 79/F Req #: [id number] Adm Physician: CLAUDIO MARQUEZ MD Ordered by: BRE ROGERS DO Report #: [id number] Location: MED/SURG2 Room/Bed: [facility] Procedure: [id number] CT/CT BRAIN WO Exam Date: 11/15/19 Exam [...] ROGERS DO CHEST SINGLE (PORTABLE) 2019-11-14 19:12:00 [place] [address] Patient Name: ZEFERINO GUILLORY MR #: [id number] : 1940 Age/Sex: 79/F Req #: [id number] Adm Physician: Ordered by: BRE ROGERS DO Report #: [id number] Location: ER Room/Bed: Procedure: [id number] DX/CHEST SINGLE (PORTABLE) Exam Date: 11/14/19 Exam [...] Perfo rming Test: TCH- CTA CHEST FOR [id number] 16:23:00 Name: ZEFERINO GUILLORY [facility] [place] : 1940 Age/S: 79 / F [address] [place] [address] Unit #: [id number] Loc: [place] [address] Phys: Carlton Mo MD Acct: [id number] Dis Date: Status: REG CLI PHONE #: [phone] Exam Date: 11/12/2019 1550 FAX #: [phone] Reason: CRITICAL ILLNESS MYOPATHY EXAMS: CPT CODE: [id number] [place] [address] EXAM: CTA CHEST WITH CONTRAST DATE: 11/12/2019 [...] CT imaging performed at this location utili [employer] radiation dose optimization techniques which include one [...] Signed Rep ort (CONTINUED) Name: ZEFERINO GUILLORY [facility] [place] : 1940 Age/S: 79 / F [address] Unit #: [id number] Loc: [place], [place] [address] Phys: Carlton Mo MD Acct: [id number] Dis Date: Status: REG CLI PHONE #: [phone] Exam Date: 11/12/2019 1550 FAX #: [phone] Reason: CRITICAL ILLNESS MYOPATHY EXAMS: CPT CODE: [id number] [place] [address] <Continued> Bones: No acute abnormality. Age-related degenerative [...] Mo MD on 11/12/2019 4:11 PM. SL: [id number] at 1623 Reported and signed by: Scar Mendoza D.O. CC: Carlton Mo MD Technologist:RT Quynh(R)(CT) CTDI: DLP: Trnscb Date/Time: 11/12/2019 (162) [email or web address] Orig Print D/T: S: 11/12/2019 (6642) PAGE 2 Signed Report - CT ABD PELVIS W/O [id number] 17:00:00 Name: ZEFERINO GUILLORY [facility] : 1940 Age/S: 79 / F [address] [place] [address] Bl Unit #: [id number] Loc: [place], [place] [address] Phys: Johny Hernandez MD Acct: [id number] Dis Date: Status: REG CLI PHONE #: [phone] Exam Date: 11/10/2019 1621 FAX #: [phone] Reason: EVAL FOR ILEUS OR SBO EXAMS: CPT CODE: [id number] CT ABD PELVIS W/O CONT 64665 Clinical indication: EVAL FOR ILEUS OR SBO, [...] 1 Signed Report (CONTINUED) Name: ZEFERINO GUILLORY [facility] : 1940 Age/S: 79 / F [address] [place] [address] Unit #: [id number] Loc: [place] [address] Phys: Johny Hernandez MD Acct: [id number] Dis Date: Status: REG CLI PHONE #: [phone] Exam Date: 11/10/2019 1621 F AX #: [phone] Reason: EVAL FOR ILEUS OR SBO EXAMS: CPT CODE: [id number] CT ABD PELVIS W/O CONT 68917 <Continued> No splenomegaly. Pancreas: Pancreatic atrophy. No [...] Signed Report (CONT INUED) Name: ZEFERINO GUILLORY [facility] [place] : 1940 Age/S: 79 / F [address] [place] [address] Unit #: [id number] Loc: [place] [address] Phys: Johny Pineda MD Acct: [id number] Dis Date: Status: REG CLI EDGARDO NE #: [phone] Exam Date: 11/10/2019 1621 FAX #: Reason: EVAL FOR ILEUS OR SBO EXAM S: CPT CODE: [id number] CT ABD PELVIS W/O CONT 55925 <Continued> 1. Mildly dilated loops of small and large bowel suggestive of ileus 2. Fatty infiltration liver 3. Small bilateral pleural effusions and atelectasis of the lung bases 4. Decubitus ulcer SL: [id number] at 1700 Reported and signed by: Kailey Vincent M.D. CC: Johny Hernandez MD Technologist:RT Aamir(R) CTDI: DLP: Trnscb Da te/Time: 11/10/2019 (1700) [email or web address].M913 Orig Print D/T: S: 0 11/10/2019 (1703) PAGE 3 Signed Report CHEST SINGLE (PORTABLE)2019-11-04 08:30:00 [place] [address] Patient Name: ZEFERINO GUILLORY MR #: [id number] : 1940 Age/Sex: 79/F Req #: [id number] Adm Physician: JUDI CABALLERO MD Ordered by: JUDI CABALLERO MD Report #: [id number] Location: MED/SURG2 Room/Bed: [facility] Procedure: DX/CHEST SINGLE (PORTABLE) Exam Date: 11/04/19 [...] TO: JUDI CABALLERO MD CHEST XRAY LINE [id number] 22:54:00 [place] [address] Patient Name: ZEFERINO GUILLORY MR #: [id number] : 1940 Age/Sex: 79/F Req #: [id number] Adm Physician: JUDI CABALLERO MD Ordered by: JUDI CABALLERO MD Report #: [id number] Location: MED/SURG2 Room/Bed: [facility] Procedure: [id number] DX/CHEST XRAY L INE PLACEMENT Exam Date: [...] COPY TO: JUDI CABALLERO MD RENAL RETROPERITONEAL [id number] 17:09:00 [place] [address] Patient Name: ZEFERINO GUILLORY MR #: [id number] : 1940 Age/Sex: 79/F Req #: [id number] Adm Physician: JUDI CABALLERO MD Ordered by: JUDI CABALLERO MD Report #: [id number] Location: MED/SURG2 Room/Bed: [facility] Procedure: [id number] US/US RENAL RET ROPERITONEAL COMP Exam Date: [...] COPY TO: JUDI CABALLERO MD CT ABDOMEN/PELVIS [id number] 14:30:00 [place] [address] Patient Name: ZEFERINO GUILLORY MR #: [id number] : 1940 Age/Sex: 79/F Req #: [id number] Adm Physician: JUDI CABALLERO MD Ordered by: JUDI CABALLERO MD Report #: [id number] Location: MED/SURG2 Room/Bed: [facility] Procedure: [id number] CT/CT ABDOMEN/P NILTON WO Exam Date: 10/30/19 [...] JUDI CABALLERO MD CHEST SINGLE (PORTABLE)2019-10-29 15:25:00 [place] [address] Patient Name: ZEFERINO GUILLORY MR #: [id number] : 1940 Age/Sex: 79/F Req #: [id number] Adm Physician: Ordered by: EVELYNE RIOS MD Report #: [id number] Location: ER Room/Bed: Procedure: [id number] DX/CHEST SING LE (PORTABLE) Exam Date: 10/29/19 [...] 1526 Transcribed By: AN on 10/29/19 1526 SUPERVISOR ROVING Y TO: EVELYNE RIOS MD
== END 2019-11-18 17:55 | disposition expired | DRG 871 ==
LOC: ER 19:01 → ERHOLD 11-15 02:10 → MED/SURG2 11-15 03:01 → INTOOBSV 11-16 06:21 → OBSVTOIN 11-16 06:21
PROVIDERS: ADMIT Internal Medicine; ATTEND Internal Medicine
DX: A41.9 Sepsis, unspecified organism (principal); J69.0 Pneumonitis due to inhalation of food and vomit; L89.154 Pressure ulcer of sacral region, stage 4; G93.41 Metabolic encephalopathy; N39.0 Urinary tract infection, site not specified; E87.0 Hyperosmolality and hypernatremia; N17.9 Acute kidney failure, unspecified; I46.9 Cardiac arrest, cause unspecified; E86.0 Dehydration; R41.0 Disorientation, unspecified; K72.90 Hepatic failure, unspecified without coma; Z66 Do not resuscitate; K74.60 Unspecified cirrhosis of liver; R56.9 Unspecified convulsions; Z11.59 Encounter for screening for other viral diseases; I12.9 Hypertensive chronic kidney disease with stage 1 through stage 4 chronic kidney disease, or unspecified chronic kidney disease; N18.9 Chronic kidney disease, unspecified
CPT/HCPCS: 36415; 36600; 70450; 70551; 71045; 74018; 74176; 80048; 80053; 81001; 82140; 82550; 82553; 82805; 82948; 83605; 83735; 83880; 84132; 84145; 84146; 84425; 84442; 84484; 85025; 85651; 86039; 86235; 86376; 87040; 87086; 95812; 97139; 99284; G0378; J0692; J1815; J1940; J3370; J3411; J3480; J7040; J7050; J7070; U0002